=== PATIENT | male | born 1960 | race Caucasian/White ===

== ENCOUNTER 2023-06-09 13:03 | Outpatient (OUT) | payer OTHER, SELFPAY ==
--- NOTE | 2023-06-09 14:05 | CA_ITS ---
Patient: MAGGIE GRAHAM Exam Date: 06/09/2023 : 1960 Gender:M Ordering : DR GALINDO ARANA M.D. 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 DESCRIPTION: COMPLETE ECHOCARDIOGRAM Real-time transthoracic echocardiography with 2D, M-mode, spectral and color flow Doppler performed. QUALITY: Technical quality was adequate. LEFT VENTRICLE: Moderate dilatation. Mild concentric left ventricular hypertrophy. Global left ventricular systolic function is at the lower limits of normal. LV EF: Visual estimation of left ventricular ejection fraction is 50% DIASTOLIC: Not adequately assessed due to heart rhythm. ATRIAL SEPTUM: LEFT ATRIUM: Severe dilatation. RIGHT ATRIUM: Severe dilatation. RIGHT VENTRICLE: Mild dilatation. Normal right ventricular systolic function. TRICUSPID VALVE: Normal mobility and thickness. No stenosis with mild regurgitation. Moderate to severe pulmonary hypertension. RVSP 57 mmHg MITRAL VALVE: Normal mobility and thickness. No evidence of mitral valve stenosis. Mild mitral annular calcification. Moderate mitral regurgitation. The mitral regurgitation jet is eccentric. AORTIC VALVE: Normal trileaflet appearance. No visible sclerosis. Normal leaflet mobility. No evidence of aortic valve stenosis. Trivial aortic regurgitation. AORTIC ROOT: Mildly dilated. Measuring 3.9 cm. PULMONIC VALVE: Normal thickness and mobility. No stenosis. Trivial regurgitation. PERICARDIUM: No evidence of pericardial effusion. IVC: Moderate dilatation. Measuring 2.5 cm with partial collapse. PLEURA: CONCLUSION: 1. The left ventricle is mildly to moderately dilated and exhibits low normal systolic function. LVEF is estimated at 50%. 2. Mildly dilated right ventricle with normal systolic function. 3. Severe biatrial dilatation. 4. Moderate mitral regurgitation with an eccentric regurgitation jet. 5. Moderate to severe elevation of right-sided pressures. RVSP is 57 mmHg. 6. Mildly dilated ascending aorta measuring 3.9 cm. Adult Echocardiography Procedure Report Left Ventricle LVEDD (3.7 - 5.6 cm): 6.55 cm LVESD (2.2 - 4.0 cm): 4.13 cm LVIVS thickness (0.6 - 1.2 cm): 0.97 cm LVPW thickness (0.5 - 1.0 cm): 1.28 cm e': 0.14 m/s E - e': 8.02 LVOT Max Gradient: 2.48 mm[Hg] LVOT Area (cm2): 0.79 m/s Peak Velocity (LVOT): 0.79 m/s Mean Velocity (LVOT): 0.59 m/s LVOT Diameter 2.40 cm Left Ventricular Ejection Fraction: 50 % Left Atrium LA Volume Index (2D A2C): 123.82 ml/m2 Left Atrium Systolic Dimension: 6.83 cm Mitral Valve Mitral Valve E-Wave Peak Velocity: 1.09 m/s Right Ventricle RV Internal Diastolic Dimension: 4.81 cm Aorta AO Root Diam: 3.87 cm Ascending Ao Diam: 3.63 cm Aortic Valve AoV Area (Peak Brad): 2.64 cm2, 2.64 cm2 AoV Area (VTI): 2.98 cm2, 2.98 cm2 Peak Velocity(Antegrade Flow): 1.35 m/s Peak Gradient(Antegrade Flow): 7.25 mm[Hg] Mean Velocity(Antegrade Flow): 0.86 m/s Mean Gradient(Antegrade Flow): 3.27 mm[Hg] Velocity Time Integral: 26.38 cm Tricuspid Valve Peak Velocity (Regurgitant Flow): 2.78 m/s, 2.52 m/s, 3.26 m/s Pulmonic Valve Mean Gradient: 1.85 mm[Hg] Mean Velocity: 0.62 m/s Peak Velocity: 0.98 m/s, 1.10 m/s Peak Gradient: 3.83 mm[Hg], 4.81 mm[Hg] Right Atrium Right Atrium Systolic Pressure: 132.50 ml, 132.50 ml Dictated by: Galindo Arana M.D. on 06/09/2023 at 19:32 Approved by: Galindo Arana M.D. on 06/09/2023 at 19:39
== END 2023-06-09 13:04 | disposition home or self-care (01) ==
PROVIDERS: PCP Internal Medicine; Visit Provider Internal Medicine Interventional Cardiology
DX: I27.22 Pulmonary hypertension due to left heart disease (principal); I34.0 Nonrheumatic mitral (valve) insufficiency
CPT/HCPCS: 93306

== ENCOUNTER 2023-06-16 10:04 | Outpatient (OUT) | payer OTHER, SELFPAY ==
[2023-06-16 10:28] LABS: Anion Gap 10.9; BUN Creatinine Ratio 11.4; Calcium 9.2 mg/dL (8.5-10.1); Carbon Dioxide 30.1 mmol/L (21.0-32.0); Chloride 105 mmol/L (98-107); Estimated GFR (African America >60 (>=60); Estimated GFR (Non-African Ame 52 (>=60); Glucose 97 mg/dL (74-106); Sodium 142 mmol/L (136-145)
== END 2023-06-16 10:05 | disposition home or self-care (01) ==
LOC: LAB 10:05
PROVIDERS: PCP Internal Medicine; Visit Provider Nurse Practitioner
DX: I50.42 Chronic combined systolic (congestive) and diastolic (congestive) heart failure (principal)
CPT/HCPCS: 36415; 80048

== ENCOUNTER 2023-09-04 14:08 | Outpatient (OUT) | payer OTHER, SELFPAY ==
--- NOTE | 2023-09-04 14:24 | XR_ITS ---
The [address] [address] Patient Name: MAGGIE GRAHAM MRN: [id number] date: 1960 Sex: M Assigned Patient Location: LAB Current Patient Location: LAB Accession/Order Number: [id number] Exam Date: 09/04/2023 14:35 Report Date: 09/04/2023 16:43 At the request of: TIKA OLSON Procedure: XR chest 2V EXAM: Chest x-ray HISTORY: . Quality Assurance Drug Therapy Z79.899 . COMPARISON: 07/30/2022 TECHNIQUE: Frontal and lateral chest FINDINGS: Heart and vascularity are unremarkable. Lungs are free of focal infiltrates. Interstitial markings are prominent suggesting chronic interstitial changes. Findings have increased slightly since previous exam. No consolidation is noted. No effusions are noted. XR/XR chest 2V IMPRESSION: 1. No acute heart or lung disease identified. 2. Prominent interstitial markings. Findings have increased slightly since previous exam. Electronically authenticated by: JEISON LIMA Date: 09/04/2023 16:43
[2023-09-04 15:19] LABS: Free T4 1.05 ng/dL (0.76-1.46)
[2023-09-04 15:25] LABS: Alanine Aminotransferase 34 U/L (16-63); Albumin Globulin Ratio 1.1; Albumin Level 3.8 g/dL (3.4-5.0); Alkaline Phosphatase 89 U/L (46-116); Aspartate Amino Transferase 25 U/L (15-37); Bilirubin Direct 0.2 mg/dL (0.0-0.2); Bilirubin Total 0.7 mg/dL (0.2-1.0); Globulin 3.6 g/dL; Thyroid Stimulating Hormone 4.036 uIU/mL (0.358-3.740); Total Protein 7.4 g/dL (6.4-8.2)
== END 2023-09-04 14:09 | disposition home or self-care (01) ==
LOC: LAB 14:11
PROVIDERS: PCP Internal Medicine; Visit Provider Nurse Practitioner
DX: Z79.899 Other long term (current) drug therapy (principal)
CPT/HCPCS: 36415; 71046; 80076; 84439; 84443

== ENCOUNTER 2023-10-21 16:07 | Outpatient (OUT) | payer OTHER, SELFPAY ==
[2023-10-21 16:25] LABS: Basophils Percent Auto 0.6 % (0.2-2.0); Eosinophils Absolute Auto 0.1 10^3/uL (0.0-0.7); Eosinophils Percent Auto 1.8 % (0.9-7.0); Hematocrit 44.8 % (42.0-54.0); Hemoglobin 14.9 g/dL (14.0-18.0); Immature Granulocytes Abs Auto 0.03 10^3/uL (0.00-0.03); Immature Granulocytes Pct Auto 0.5 % (0.0-0.5); Lymphocytes Absolute Auto 1.9 10^3/uL (1.2-3.8); Lymphocytes Percent Auto 28.4 % (20.5-60.0); Mean Corpuscular HGB Conc 33.3 g/dL (29.9-35.2); Mean Corpuscular Volume 87.2 fL (80.0-94.0); Monocytes Absolute Auto 0.5 10^3/uL (0.3-0.8); Monocytes Percent Auto 8.2 % (1.7-12.0); Neutrophils Percent Auto 60.5 % (43.0-75.0); Platelet Count 198 10^3/uL (150-450); Red Blood Count 5.14 10^6/uL (4.70-6.10); Red Cell Distribution Width 13.3 % (11.0-15.0); White Blood Count 6.6 10^3/uL (4.0-11.0)
[2023-10-21 17:26] LABS: Prostate Specific Antigen Scrn 0.52 ng/mL (<=4.00)
== END 2023-10-21 16:08 | disposition home or self-care (01) ==
PROVIDERS: PCP Internal Medicine; Visit Provider Internal Medicine
DX: Z00.00 Encounter for general adult medical examination without abnormal findings (principal)
CPT/HCPCS: 36415; 85025; G0103

== ENCOUNTER 2024-10-20 09:06 | Outpatient (OUT) | payer OTHER, SELFPAY ==
--- NOTE | 2024-10-20 09:04 | CA_ITS ---
Patient Name: MAGGIE GRAHAM MR#: [id number] : 1960 Exam Date: 10/20/2024 Ordering Doctor: NAYELI COON ECHOCARDIOGRAM REPORT PROCEDURE: CA ECHO DOPPLER COMPLETE INDICATIONS: Chronic heart failure COMPARISON: None. DESCRIPTION: COMPLETE ECHOCARDIOGRAM Real-time transthoracic echocardiography with 2D, M-mode, spectral and color flow Doppler performed. QUALITY: Technical quality was good. LEFT VENTRICLE: Normal chamber size. Thickened posterior wall. Mild to moderate concentric hypertrophy. Systolic function is at the lower limits of normal. LV EF: Lower limits of normal left ventricular ejection fraction, (50-55%). DIASTOLIC: Not adequately assessed due to heart rhythm. ATRIAL SEPTUM: LEFT ATRIUM: Severe dilatation. RIGHT ATRIUM: Severe dilatation. RIGHT VENTRICLE: Mild dilatation. Normal right ventricular systolic function. TRICUSPID VALVE: Normal mobility and thickness. No stenosis with mild regurgitation. No evidence of pulmonary hypertension. RVSP 29 mmHg MITRAL VALVE: Normal mobility and thickness. No evidence of mitral valve stenosis. There is no mitral annular calcification. Mild to moderate mitral regurgitation. AORTIC VALVE: Normal trileaflet appearance. No visible sclerosis. Normal leaflet mobility. No evidence of aortic valve stenosis. Mild aortic regurgitation. AORTIC ROOT: Normal diameter and appearance, measuring 3.7 cm. Mildly dilated ascending aorta measuring 3.7 cm. PULMONIC VALVE: Normal thickness and mobility. No stenosis. No regurgitation. PERICARDIUM: No evidence of pericardial effusion. IVC: Collapses with inspirations. Normal size. PLEURA: CONCLUSION: 1. The left ventricle exhibits mild to moderate concentric hypertrophy. Systolic function is at the lower limits of normal. Estimated LVEF is 50 to 55%. 2. Mildly dilated right ventricle with normal systolic function. 3. Severe biatrial dilatation. 4. Mild to moderate mitral regurgitation. 5. Mild aortic and tricuspid regurgitation. 6. Normal right-sided pressures. 7. Mildly dilated ascending aorta measuring 3.7 cm. Adult Echocardiography Procedure Report Left Ventricle LVEDD (3.7 - 5.6 cm): 6.16 cm LVESD (2.2 - 4.0 cm): 4.69 cm LVIVS thickness (0.6 - 1.2 cm): 1.08 cm LVPW thickness (0.5 - 1.0 cm): 1.45 cm e': 0.13 m/s LVOT Max Gradient: 1.98 mm[Hg] LVOT Area (cm2): 0.70 m/s Peak Velocity (LVOT): 0.70 m/s Mean Velocity (LVOT): 0.45 m/s LVOT Diameter 2.15 cm Left Ventricular Ejection Fraction: 50-55 % Left Atrium LA Volume Index (2D A2C): 113.44 ml/m2 Left Atrium Systolic Dimension: 6.96 cm Mitral Valve Right Ventricle RV Internal Diastolic Dimension: 4.18 cm Aorta AO Root Diam: 3.71 cm Ascending Ao Diam: 3.70 cm Aortic Valve AoV Area (Peak Brad): 1.52 cm2, 1.52 cm2 AoV Area (VTI): 1.84 cm2, 1.84 cm2 Peak Velocity(Antegrade Flow): 1.67 m/s Peak Gradient(Antegrade Flow): 11.22 mm[Hg] Mean Velocity(Antegrade Flow): 1.14 m/s Mean Gradient(Antegrade Flow): 5.92 mm[Hg] Velocity Time Integral: 32.96 cm Tricuspid Valve Peak Velocity (Regurgitant Flow): 2.42 m/s, 2.13 m/s, 2.57 m/s Pulmonic Valve Mean Gradient: 2.36 mm[Hg], 3.36 mm[Hg] Mean Velocity: 0.76 m/s, 0.89 m/s Peak Velocity: 1.01 m/s Peak Gradient: 3.31 mm[Hg], 5.01 mm[Hg] Right Atrium Right Atrium Systolic Pressure: 144.47 ml, 144.47 ml Dictated by: Tim Arana M.D. on 10/21/2024 at 20:34 Approved by: Tim Arana M.D. on 10/21/2024 at 20:38
== END 2024-10-20 09:07 | disposition home or self-care (01) ==
LOC: CARD 09:06
PROVIDERS: PCP Internal Medicine; Visit Provider Nurse Practitioner
DX: I50.42 Chronic combined systolic (congestive) and diastolic (congestive) heart failure (principal)
CPT/HCPCS: 93306

== ENCOUNTER 2024-11-05 09:01 | Outpatient (OUT) | payer BC, OTHER, SELFPAY ==
[2024-11-05 09:59] LABS: Basophils Percent Auto 0.5 % (0.2-2.0); Eosinophils Absolute Auto 0.1 10^3/uL (0.0-0.7); Eosinophils Percent Auto 1.6 % (0.9-7.0); Hematocrit 47.4 % (42.0-54.0); Hemoglobin 15.7 g/dL (14.0-18.0); Immature Granulocytes Abs Auto 0.01 10^3/uL (0.00-0.03); Immature Granulocytes Pct Auto 0.2 % (0.0-0.5); Lymphocytes Absolute Auto 1.6 10^3/uL (1.2-3.8); Lymphocytes Percent Auto 24.5 % (20.5-60.0); Mean Corpuscular HGB Conc 33.1 g/dL (29.9-35.2); Mean Corpuscular Hemoglobin 27.7 pg (25.9-34.0); Mean Corpuscular Volume 83.6 fL (80.0-94.0); Mean Platelet Volume 10.6 fL (9.5-13.5); Monocytes Absolute Auto 0.5 10^3/uL (0.3-0.8); Monocytes Percent Auto 8.2 % (1.7-12.0); Neutrophils Absolute Auto 4.2 10^3/uL (1.4-6.5); Platelet Count 193 10^3/uL (150-450); Red Blood Count 5.67 10^6/uL (4.70-6.10); Red Cell Distribution Width 13.6 % (11.0-15.0); White Blood Count 6.4 10^3/uL (4.0-11.0)
[2024-11-05 10:20] LABS: Alanine Aminotransferase 26 U/L (16-63); Albumin Globulin Ratio 1.1; Albumin Level 3.5 g/dL (3.4-5.0); Alkaline Phosphatase 84 U/L (46-116); Anion Gap 8.9; Aspartate Amino Transferase 19 U/L (15-37); BUN Creatinine Ratio 15.3; Calcium 8.9 mg/dL (8.5-10.1); Chloride 108 mmol/L (98-107); Chol HDL Ratio 3.7; Cholesterol 163 mg/dL (<=200); Estimated GFR (African America >60 (>=60 mL/min/1.73m^2); Estimated GFR (Non-African Ame >60 (>=60 mL/min/1.73m^2); Globulin 3.3 g/dL; Glucose 99 mg/dL (74-106); HDL Cholesterol 44 mg/dL (40-60); LDL Cholesterol Calculated 106.8 mg/dL; Potassium 3.9 mmol/L (3.5-5.1); Sodium 142 mmol/L (136-145); Total Protein 6.8 g/dL (6.4-8.2); Triglycerides 61 mg/dL (<=150); VLDL CHOLESTEROL 12.2 mg/dL
[2024-11-05 10:58] LABS: Prostate Specific Antigen Scrn 0.24 ng/mL (<=4.00)
== END 2024-11-05 09:02 | disposition home or self-care (01) ==
PROVIDERS: PCP Internal Medicine; Visit Provider Internal Medicine
DX: Z00.00 Encounter for general adult medical examination without abnormal findings (principal)
CPT/HCPCS: 36415; 80053; 80061; 85025; G0103

== ENCOUNTER 2024-12-06 10:34 | Outpatient (OUT) | payer BC, SELFPAY ==
--- OUTSIDE RECORDS SUMMARY | 2024-12-06 10:39 | XMS_ITS | CCD ---
Author Organization [facility] Care Team Providers Care Clinical Admissions Manager Name Role Phone FAM VAZQUEZ Primary Care Unavailable GEORGE, FAM Referring Unavailable DUARTELUIS MIGUEL Admitting Unavailable DUARTELUIS MIGUEL Attending Unavailable GEORGE, FAM Primary Care Unavailable GEORGE, FAM Referring Unavailable MOUKARBEL, GALINDO Dominguez Admitting Unavailable MOUKARBDAKOTA, GALINDO Dominguez Attending Unavailable Fam Vazquez Unavailable GEORGE, DR ETIENNE Admitting Unavailable BALL, DR ETIENNE Attending Unavailable BALL, DR ETIENNE Primary Care Unavailable BALL, DR ETIENNE Consulting Unavailable MOUKARBEL, DR MEDLEY Admitting Unavailable MOUKARBEL, DR MEDLEY Attending Unavailable BALL, DR ETIENNE Primary Care Unavailable MOUKARBEL, DR MEDLEY Consulting Unavailable MOUKARBEL, DR MEDLEY Admitting Unavailable MOUKARBEL, DR MEDLEY Attending Unavailable BALL, DR ETIENNE Primary Care Unavailable MOUKARBEL, DR MEDLEY Consulting Unavailable MOUKARBEL, DR MEDLEY Admitting Unavailable MOUKARBEL, DR MEDLEY Attending Unavailable BALL, DR ETIENNE Primary Care Unavailable KEIRY, BILL Admitting Unavailable KERIY, BILL Attending Unavailable GEORGE, DR ETIENNE Primary Care Unavailable BILL RICCI Consulting Unavailable NEFCYEVENS Consulting Unavailable MOUKARBEL, DR MEDLEY Admitting Unavailable MOUKARBEL, DR MEDLEY Attending Unavailable BALL, DR ETIENNE Primary Care Unavailable MOUKARBEL, DR MEDLEY Consulting Unavailable MOUKARBEL, GALINDO Attending Unavailable SHAGGY, NAYELI Attending Unavailable Medications Current Medications Medication Drug Class(es) Dates Sig (Normalized) Sig (Original) amiodarone hydrochloride 200 mg oral tablet (5 sources) Antiarrhythmic take 1 tablet by mouth every twenty-four hours Amiodarone HCl 200 MG 1 tablet Orally Once a day Active amLODIPine 10 mg / benazepril hydrochloride 40 mg oral capsule (7 sources) Dihydropyridine Calcium Channel Shane, Angiotensin Converting Enzyme Inhibitor Start: 05-17-2024 take 1 capsule by mouth once daily Amlodipine-Benaz epril Active 1 CAP PO Daily May 17, 2024 12:00am amLODIPine Besy- Benazepril HCl 10-40 MG as directed Orally Active apixaban 5 mg oral tablet (12 sources) Factor Xa Inhibitor Start: 05-17-2024 take 5 mg by mouth twice daily Apixaban Active 5 MG PO Twice daily May 17, 2024 12:00am Start: 02-17-2023 take 1 tablet by tiffanie th every twelve hours Eliquis 5 MG 1 tablet Orally Twice a day Feb, Active cefuroxime 500 mg oral tablet (1 source) Cephalosporin Antibacterial Start: 07-09-2024 take 500 mg by mouth twice daily Cefuroxime Axetil Active 500 MG PO Twice daily 16 05July 09, 2024 12:00am dapagliflozin 10 mg oral tablet (5 sources) Sodium-Glucose Cotransporter 2 Inhibitor Start: 05-17-2024 take 1 tablet by mouth once daily Dapagliflozin Propanediol (Farxiga) 10 mg tablet Active 10 MG PO Daily May 17, 2024 12:00am take 1 tablet by tiffanie every twenty-four hours Farxiga 10 MG 1 tablet Orally Once a day Active doxycycline hyclate 100 mg oral capsule (3 sources) Tetracycline-class Drug Start: 05-27-2024 take 100 mg by mouth twice daily Doxycycline Hyclate Active 100 MG PO Twice daily 14 May 27, 2024 12:00am Start: 12-02-2023 take 1 capsule by mo [facility] every twelve hours Doxycycline Hyclate 100 MG 1 capsule Orally Twice a day for 7 days Nov, Active furosemide 40 mg oral tablet (7 sources) Loop Diuretic Start: 05-17-2024 take 40 mg by mouth three times daily Furosemide Active 40 MG PO Three times daily May 17, 2024 12:00am take 1 tablet by mouth every eig ht hours Furosemide 40 MG 1 tablet Orally tid Active take 1 tablet by tiffanie th every twenty-four hours metoprolol tartrate 50 mg oral tablet (9 sources) beta-Adrenergic Shane Start: 05-17-2024 take 50 mg by mouth twice daily Metoprolol Tartrate Active 50 MG PO Twice daily May 17, 2024 12:00am Start: 02-17-2023 take 1 tablet by tiffanie every twelve hours Metoprolol Tartrate 25 MG 1 tablet with food Orally Twice a day Feb, Active microencapsulated potassium chloride 20 meq extended release oral tablet (7 sources) Start: 05-17-2024 Potassium Chlo ride (Klor-Con M20) 20 mEq tablet,ER particles/crystals Active 20 MEQ PO Daily May 17, 2024 12:00am take 1 tablet by mouth every eig ht hours Klor-Con M20 20 MEQ 1 tablet with food Orally tid Active take 1 tablet by tiffanie th every twenty-four hours Klor-Con M20 20 MEQ 1 tablet with food Orally Once a day Active spironolactone 25 mg oral tablet (7 sources) Aldosterone Antagonist Start: 05-17-2024 take 1 tablet by mouth once daily Spironolactone (Aldactone) 25 mg tablet Active 25 MG PO Daily May 17, 2024 12:00am tadalafil 20 mg oral tablet (7 sources) Phosphodiesterase 5 Inhibitor Start: 05-17-2024 Tadalafil (Pulm. Hypertension) Active 20 MG PO Every 48 hours May 17, 2024 12:00am Tadalafil 20 MG 1 tablet as needed Orally PRN ED for 30 days Active Completed/Discontinued Medications Medication Drug Class(es) Dates Sig (Normalized) Sig (Original) azithromycin 250 mg oral tablet (5 sources) Macrolide Antimicrobial Start: 02-17-2023 Azithromycin 250 MG as directed Orally daily for 5 days Feb, Not-Taking/PRN Problems Active Problems Problem Classification Problem Date Documented Da te Episodic/Chronic Acute bronchitis (5 sources) Acute bronchitis; Translations: [Acute bronchitis due to other specified organisms] 05-27-2024 Episodic Aortic; peripheral; and visceral artery aneurysms (2 sources) Aortic ectasia, unspecified site; Translations: [Aortic ectasia, unspecified site] Onset: 10-03-2022 Chronic Cardiac dysrhythmias (19 sources) Paroxysmal atrial fibrillation; Translations: [Paroxysmal atrial fibrillation] Onset: 01-13-2014 Chronic Chronic kidney disease (6 sources) Chronic kidney disease stage 3; Translations: [Chronic kidney disease, stage III (moderate)] Onset: 10-05-2018 Chronic Congestive heart failure; nonhypertensive (4 sources) Chronic diastolic (congestive) heart failure; Translations: [Chronic combined systolic (congestive) and diastolic (congestive) heart failure] Onset: 06-06-2023 Chronic Essential hypertension (18 sources) Essential hypertension; Translations: [Essential (primary) hypertension] Onset: 06-15-2015 Chronic Heart valve disorders (3 sources) 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 valves; Translations: [Nonrheumatic mitral (valve) insufficiency] Onset: 10-19-2022 Chronic Hyperplasia of prostate (3 sources) Benign prostatic hypertrophy without outflow obstruction; Translations: [Hypertrophy (benign) of prostate without urinary obstruction and other lower urinary tract symptoms [LUTS]] Onset: 01-02-2018 Chronic Hypertension with complications and secondary hypertension (13 sources) Chronic kidney disease due to hypertension; Translations: [Hypertensive chronic kidney disease with stage 1 through stage 4 chronic kidney disease, or unspecified chronic kidney disease] Onset: 10-05-2018 Chronic Other aftercare (4 sources) Long-term current use of anticoagulant; Translations: [Long-term (current) use of anticoagulants] Onset: 02-16-2018 Episodic Other aftercare (1 source) retirement (current) use of anticoagulants Episodic Other and ill-defined heart disease (2 sources) Heart disease, unspecified; Translations: [Heart disease, unspecified] Onset: 10-03-2022 Chronic Other and unspecified benign neoplasm (2 sources) Benign neoplasm of colon; Translations: [Polyp of colon] Episodic Other and unspecified benign neoplasm (6 sources) Polyp of colon; Translations: [Polyp of colon] Episodic Other connective tissue disease (8 sources) Plantar fascial fibromatosis; Translations: [Plantar fascial fibromatosis] Episodic Other connective tissue disease (1 source) Olecranon bursitis, left elbow Episodic Other diseases of veins and lymphatics (3 sources) Chronic peripheral venous hypertension; Translations: [Chronic venous hypertension without complications] Onset: 06-15-2015 Chronic Other male genital disorders (5 sources) Impotence of organic origin; Translations: [Erectile dysfunction due to arterial insufficiency] Chronic Other male genital disorders (1 source) Erectile dysfunction due to arterial insufficiency Chronic Other nutritional; endocrine; and metabolic disorders (3 sources) Obesity; Translations: [Obesity, unspecified] Onset: 06-15-2015 Chronic Other nutritional; endocrine; and metabolic disorders (6 sources) Morbid obesity; Translations: [Morbid obesity] Onset: 05-24-2016 Chronic Other nutritional; endocrine; and metabolic disorders (6 sources) Body mass index 40+ - severely obese; Translations: [Body Mass Index 40.0-44.9, adult] Onset: 01-02-2018 Chronic Other nutritional; endocrine; and metabolic disorders (1 source) Morbid (severe) obesity due to excess calories Chronic Other nutritional; endocrine; and metabolic disorders (1 source) Body mass index (BMI) 40.0-44.9, adult Chronic Other skin disorders (1 source) Other hypertrophic disorders of the skin Episodic Other upper respiratory infections (9 sources) Acute maxillary sinusitis, unspecified; Translations: [Acute maxillary sinusitis] Onset: 10-05-2018 Episodic Otitis media and related conditions (2 sources) Dysfunction of eustachian tube; Translations: [Unspecified Eustachian tube disorder, unspecified ear] 07-09-2024 Episodic Meg-; endo-; and myocarditis; cardiomyopathy (except that caused by tuberculosis or sexually transmitted disease) (4 sources) Cardiomyopathy; Translations: [Cardiomyopathy, unspecified] Onset: 06-06-2023 07-09-2024 Chronic Pulmonary heart disease (2 sources) Pulmonary hypertension due to left heart disease; Translations: [Pulmonary hypertension due to left heart disease] Onset: 12-02-2024 Chronic Residual codes; unclassified (18 sources) Obstructive sleep apnea syndrome; Translations: [Obstructive sleep apnea (adult) (pediatric)] Onset: 05-24-2016 05-27-2024 Chronic Residual codes; unclassified (3 sources) Obstructive sleep apnea (adult) (pediatric); Translations: [Obstructive sleep apnea (adult) (pediatric)] Onset: 10-03-2022 Chronic Superficial injury; contusion (4 sources) Nonvenomous insect bite of hip with infection; Translations: [Hip, thigh, leg, and ankle, insect bite, nonvenomous, infected] Onset: 06-27-2014 Episodic Unclassified (3 sources) CONTACT W/AND (SUSP) EXPOS COVID-19; Translations: [CONTACT W/AND (SUSP) EXPOS COVID-19] Onset: 03-28-2022 Past or Other Problems Problem Classification Problem Date Documented Da te Episodic/Chronic Bacterial infection; unspecified site (3 sources) Bacterial infectious disease; Translations: [Bacterial infection, unspecified, in conditions classified elsewhere and of unspecified site] Onset: 10-05-2018 Episodic Cardiac dysrhythmias (3 sources) Tachycardia; Translations: [Unspecified tachycardia] Onset: 01-12-2014 Episodic Chronic kidney disease (1 source) Chronic kidney disease Gastrointestinal hemorrhage (3 sources) Hematochezia; Translations: [Blood in stool] Onset: 07-26-2016 Episodic Malaise and fatigue (3 sources) Malaise and fatigue; Translations: [Other malaise and fatigue] Onset: 06-15-2015 Episodic Other diseases of veins and lymphatics (3 sources) Peripheral venous insufficiency; Translations: [Unspecified venous (peripheral) insufficiency] Onset: 06-15-2015 Episodic Other lower respiratory disease (4 sources) Shortness of breath; Translations: [SHORTNESS OF BREATH] Onset: 10-14-2022 Episodic Other lower respiratory disease (3 sources) Chronic cough; Translations: [Chronic cough] Resolved: 10-15-2022 Episodic Other lower respiratory disease (3 sources) Dyspnea; Translations: [Other dyspnea and respiratory abnormalities] Onset: 01-12-2014 Episodic Other lower respiratory disease (3 sources) Orthopnea; Translations: [Orthopnea] Onset: 01-12-2014 Episodic Other screening for suspected conditions (not mental disorders or infectious disease) (5 sources) Encounter for screening for malignant neoplasm of prostate; Translations: [Coag./bleeding tests abnormal] Onset: 06-27-2014 Episodic Pneumonia (except that caused by tuberculosis or sexually transmitted disease) (3 sources) Pneumonia; Translations: [Pneumonia due to other specified organism] Onset: 02-16-2018 Episodic Residual codes; unclassified (3 sources) Edema; Translations: [Edema] Onset: 06-15-2015 Episodic Skin and subcutaneous tissue infections (3 sources) Cellulitis and abscess of lower leg; Translations: [Cellulitis and abscess of leg, except foot] Onset: 06-27-2014 Episodic Unclassified (1 source) CONTACT W/AND (SUSP) EXPOS COVID-19; Translations: [CONTACT W/AND (SUSP) EXPOS COVID-19] Onset: 03-26-2022 Unclassified (3 sources) Long-term current use of drug therapy; Translations: [Long-term (current) use of other medications] Onset: 01-02-2018 Unclassified (3 sources) Iron deficiency screening; Translations: [Screening for iron deficiency anemia] Onset: 01-02-2018 Results Test Name Value Interpretation Reference Range Facility Office Visiton 12-02-2024 Follow-up visit [id number] SantosRick rosalesjulius blackwood W 1960 M Date Provider Department Center 12/02/2024 GALINDO PENA Family History Problem Relation Age of Onset Stroke Mother Diabetes Father Family Status - Relation Status Age at Mother Father Level of Service:81707 [place] OFFICE/OUTPATIENT ESTABLISHED HIGH MDM 40 MIN Normal [facility] 36on 11-04-2024 36 Regarding echo performed on 10/20/2024: Nayeli Hernandez, REINA Griffiths, YOLIS Let pt know everything on echo remains stable, no acute concerns. Mitral valve with mod regurg and Aorta without widening- remains stable. Patient made aware. He is scheduled to see Dr. Villa on 12/02/2024. Normal [facility] Orders Onlyon 11-02-2024 Orders Only [id number] Monica Graham n W 1960 M Date Provider Department Center 11/02/2024 ADALID STRANGE Family History Problem Relation Age of Onset Stroke Mother Diabetes Father Family Status - Relation Status Age at Mother Father Normal [facility] Orders Onlyon 05-17-2024 Orders Only [id number] SantosMonica W 1960 Date Provider Department Center 05/17/2024 ADALID STRANGE Family History Problem Relation Age of Onset Stroke Mother Diabetes Father Family Status - Relation Status Age at Mother Father Normal [facility] Office Visiton 05-14-2024 Follow-up visit [id number] Monica Graham W 1960 M Date Provider Department Center 05/14/2024 NAYELI ROMO [facility] Family History Problem Relation Age of Onset Stroke Mother Diabetes Father Family Status - Relation Status Age at Mother Father Level of Service:54884 [place] OFFICE/OUTPATIENT ESTABLISHED LOW MDM 20 MIN Normal [facility] PROF CHEM 8 (BAS METB)on Anion gap [Moles/Vol] 11.2 mmol/L Normal [facility] Comment on above: Performed By: #### B MP #### [facility] [address] [address] [address] Roc Carroll Calcium [Mass/Vol] 8.4 mg/dL Critically low 8.5-10.1 Th [facility] Comment on above: Performed By: #### B MP #### [facility] [address] [address] [address] Roc Carroll Chloride [Moles/Vol] 106 mmol/L Normal 98-107 [facility] Comment on above: Performed By: #### B MP #### [facility] [address] [address] [address] Roc Carroll CO2 [Moles/Vol] 28.3 mmol/L Normal 21.0-32.[address] [facility] Comment on above: Performed By: #### B MP #### [facility] [address] [address] [address] Roc Carroll Creatinine [Mass/Vol] 1.36 mg/dL Critically high 0.70-1.30 [facility] Comment on above: Performed By: #### B MP #### [facility] [address] [address] [address] Roc Carroll EGFR-AF SAMOAN >60 Normal >=[address] [facility] Comment on above: Performed By: #### B MP #### [facility] [address] [address] [address] Roc Carroll EGFR-NON AF SAMOAN 53 mL/min/1.73m2 Critically low >=60 [facility] Comment on above: Performed By: #### B MP #### [facility] [address] [address] [address] Roc Carroll Glucose [Mass/Vol] 99 mg/dL Normal 74-106 [facility] Comment on above: Performed By: #### B MP #### [facility] [address] [address] [address] Roc Carroll Potassium [Moles/Vol] 3.5 mmol/L Normal 3.5-5.1 [facility] Comment on above: Performed By: #### B MP #### [facility] [address] [address] [address] Roc Carroll Sodium [Moles/Vol] 142 mmol/L Normal 136-145 [facility] Comment on above: Performed By: #### B MP #### [facility] [address] [place] [address] Dr. Roc Carroll Urea nitrogen [Mass/Vol] 13.0 mg/dL Normal 7.0-18.0 [facility] Comment on above: Performed By: #### B MP #### [facility] [address] [address] [address] Roc Carroll Urea nitrogen/Creatinine [Mass ratio] 9.6 mg/mg Normal [facility] Comment on above: Performed By: #### B MP #### [facility] [address] [place] [address] Dr. Roc Carroll PROF CHEM 8 (BAS METB)on Anion gap [Moles/Vol] 10.3 mmol/L Normal [facility] Comment on above: Performed By: #### B MP #### [facility] [address] [place] [address] Dr. Roc Carroll Calcium [Mass/Vol] 8.8 mg/dL Normal 8.5-10.1 [facility] Comment on above: Performed By: #### B MP #### [facility] [address] [place] [address] Dr. Roc Carroll Chloride [Moles/Vol] 103 mmol/L Normal 98-107 [facility] Comment on above: Performed By: #### B MP #### [facility] [address] [place] [address] Dr. Roc Carroll CO2 [Moles/Vol] 30.4 mmol/L Normal 21.0-32.0 [facility] Comment on above: Performed By: #### B MP #### [facility] [address] [place] [address] Dr. Roc Carroll Creatinine [Mass/Vol] 1.31 mg/dL Critically high 0.70-1.30 [facility] Comment on above: Performed By: #### B MP #### [facility] [address] [place] [address] Dr. Roc Carroll EGFR-AF SAMOAN >60 Normal >=60 [facility] Comment on above: Performed By: #### B MP #### [facility] [address] [address] [address] Rco Carroll EGFR-NON AF SAMOAN 56 mL/min/1.73m2 Critically low >=60 [facility] Comment on above: Performed By: #### B MP #### [facility] [address] [address] [address] Roc Carroll Glucose [Mass/Vol] 91 mg/dL Normal 74-106 [facility] Comment on above: Performed By: #### B MP #### [facility] [address] [address] [address] Roc Carroll Potassium [Moles/Vol] 3.7 mmol/L Normal 3.5-5.1 [facility] Comment on above: Performed By: #### B MP #### [facility] [address] [address] [address] Roc Carroll Sodium [Moles/Vol] 140 mmol/L Normal 136-145 [facility] Comment on above: Performed By: #### B MP #### [facility] [address] [address] [address] Roc Carroll Urea nitrogen [Mass/Vol] 17.0 mg/dL Normal 7.0-18.0 [facility] Comment on above: Performed By: #### B MP #### [facility] [address] [address] [address] Roc Carroll Urea nitrogen/Creatinine [Mass ratio] 13.0 mg/mg Normal [facility] Comment on above: Performed By: #### B MP #### [facility] [address] [address] [address] Roc Carroll ECHOCARDIO M/2D COMPLETEon 1 12-15-2021 ECHOCARDIO M/2D COMPLETE Patient: KISHOR GRAHAM Exam Date: 10/14/2022 : 1960 Gender:M Ordering : DR GALINDO VILLA M.D. Admission #: [id number] Family : Order #: [id number] CLICK HERE TO VIEW EXAM ECHOCARDIOGRAM REPORT PROCEDURE: CARDIO PULMONARY ECHOCARDIO M/2D COMP INDICATIONS: Shortness of breath COMPARISON: None. DESCRIPTION: COMPLETE ECHOCARDIOGRAM Real-time transthoracic echocardiography with 2D, M-mode, spectral and color flow Doppler performed. QUALITY: Technical quality was good. LEFT VENTRICLE: Normal chamber size. Moderate concentric left ventricular hypertrophy. Calculated left ventricular ejection fraction is 52%. LV EF: Lower limits of normal left ventricular ejection fraction, (50-55%). DIASTOLIC: Not adequately assessed due to heart rhythm. ATRIAL SEPTUM: LEFT ATRIUM: Severe dilatation. RIGHT ATRIUM: Severe dilatation. RIGHT VENTRICLE: Normal chamber size. Normal right ventricular systolic function. TRICUSPID VALVE: Normal mobility and thickness. No stenosis with mild to moderate regurgitation. Severe pulmonary hypertension. RVSP 76 mmHg MITRAL VALVE: Normal mobility and thickness. No mitral valve prolapse. No evidence of mitral valve stenosis. There is no mitral annular calcification. Moderate mitral regurgitation. The degree of mitral regurgitation jet is eccentric and directed anteriorly. AORTIC VALVE: Normal trileaflet appearance. No visible sclerosis. Normal leaflet mobility. No evidence of aortic valve stenosis. DVI 0.57. Mild aortic regurgitation. AORTIC ROOT: Normal diameter and appearance. PULMONIC VALVE: Normal thickness and mobility. No stenosis. Trivial regurgitation. PERICARDIUM: No evidence of pericardial effusion. IVC: Mild dilatation. Collapses with inspiration. PLEURA: CONCLUSION: 1. Moderate concentric left ventricular hypertrophy. Left ventricular systolic function is at the lower limits of normal. LVEF is 50 to 55%. 2. Normal right ventricular size and systolic function. 3. Moderate mitral regurgitation with an eccentric anteriorly directed jet. 4. Mild aortic regurgitation. 5. Severely elevated right-sided pressures. Adult Echocardiography Procedure Report Left Ventricle LVEDD (3.7 - 5.6 cm): 6.18 cm LVESD (2.2 - 4.0 cm): 4.53 cm LVIVS thickness (0.6 - 1.2 cm): 1.26 cm LVPW thickness (0.5 - 1.0 cm): 1.38 cm e': 0.14 m/s LVOT Max Gradient: 2.21 mm[Hg] Peak Velocity (LVOT): 0.74 m/s LVOT Diameter 2.34 cm Left Ventricular Ejection Fraction: 50-55% Left Atrium LA Volume Index (2D A2C): 277.31 ml, 277.31 ml Left Atrium Systolic Dimension: 6.55 cm Mitral Valve Right Ventricle RV Internal Diastolic Dimension: 4.12 cm Aorta AO Root Diam: 3.75 cm Ascending Ao Diam: 3.12 cm Aortic Valve AoV Area (Peak Brad): 2.42 cm2, 2.42 cm2 Deceleration [place]: 1.90 m/s2 Pressure Half-Time: 778.15 ms Peak Velocity(Antegrade Flow): 1.33 m/s Peak Gradient(Antegrade Flow): 7.05 mm[Hg] Tricuspid Valve Peak Velocity (Regurgitant Flow): 2.26 m/s, 2.90 m/s, 4.11 m/s Peak Velocity: 0.45 m/s Pulmonic Valve Peak Velocity: 0.93 m/s, 0.85 m/s Peak Gradient: 3.43 mm[Hg], 2.90 mm[Hg] Right Atrium Right Atrium Systolic Pressure: 132.59 ml, 132.59 ml Dictated by: Galindo Villa M.D. on 10/15/2022 at 17:57 Approved by: Galindo Villa M.D. on 10/15/2022 at 18:16 Normal [facility] HEMOGLOBINon 10-14-2022 Hemoglobin (Bld) [Mass/Vol] 14.7 g/dL Normal 14.0-18.0 [facility] Comment on above: Performed By: #### H GB #### [facility] [address] [place] [address] Dr. Roc Carroll LIPID PROFILEon 07-30-2022 CHOL-HDL RATIO NORM SEE BELOW Normal [facility] Comment on above: Result Comment: 3.3 - 4.4 LOW RISK 4.4 - 7.1 AVERAGE RISK 7.1 - 11.0 MODERATE RISK >11.0 HIGH RISK Performed By: #### L IPID, TSH, LIVER #### [facility] [address] [address] [address] Roc Carroll Cholesterol [Mass/Vol] 174 mg/dL Normal <=200 [facility] Comment on above: Performed By: #### L IPID, TSH, LIVER #### [facility] [address] [address] [address] Roc Carroll Cholesterol in HDL [Mass/Vol] 43 mg/dL Normal 40-60 [facility] Comment on above: Performed By: #### L IPID, TSH, LIVER #### [facility] [address] [address] [address] Roc Carroll Cholesterol in LDL [Mass/Vol] 117.2 mg/dL Normal [facility] Comment on above: Performed By: #### L IPID, TSH, LIVER #### [facility] [address] [address] [address] Roc Carroll Cholesterol.total/C holesterol in HDL [Mass ratio] 4.0 {ratio} Normal [facility] Comment on above: Performed By: #### L IPID, TSH, LIVER #### [facility] [address] [place] [address] Dr. Roc Carroll HDL NORMAL > or = 60 mg/dl - LO W CARDIOVASCULAR RISK <40 mg/dl - HIGH CARDIOVASCULAR RISK Normal [facility] Comment on above: Performed By: #### L IPID, TSH, LIVER #### [facility] [address] [place] [address] Dr. Roc Carroll LDL CALC NORMAL SEE BELOW Normal [facility] Comment on above: Result Comment: <100 mg/dl OPTIMAL 100 - 129 mg/dl NEAR OR ABOVE OPTIMAL 130 - 159 mg/dl BORDERLINE HIGH 160 - 189 mg/dl HIGH >190 mg/dl VERY HIGH Performed By: #### L IPID, TSH, LIVER #### [facility] [address] [place] [address] Dr. Roc Carroll Triglyceride [Mass/Vol] 69 mg/dL Normal <=150 [facility] Comment on above: Performed By: #### L IPID, TSH, LIVER #### [facility] [address] [place] [address] Dr. Roc Carroll VLDL CALC 13.8 mg/dL Normal [facility] Comment on above: Performed By: #### L IPID, TSH, LIVER #### [facility] [address] [address] [address] Roc Carroll LIVER PROFILEon 07-30-2022 Albumin [Mass/Vol] 3.8 g/dL Normal 3.4-5.0 [facility] Comment on above: Performed By: #### L IPID, TSH, LIVER #### [facility] [address] [place] [address] Dr. Roc Carroll Albumin/Globulin [Mass ratio] 1.2 {ratio} Normal [facility] Comment on above: Performed By: #### L IPID, TSH, LIVER #### [facility] [address] [place] [address] Dr. Roc Carroll ALP [Catalytic activity/Vol] 63 U/L Normal 46-116 [facility] Comment on above: Performed By: #### L IPID, TSH, LIVER #### [facility] [address] [place] [address] Dr. Roc Carroll ALT [Catalytic activity/Vol] 25 U/L Normal 16-63 [facility] Comment on above: Performed By: #### L IPID, TSH, LIVER #### [facility] [address] [place] [address] Dr. Roc Carroll AST [Catalytic activity/Vol] 16 U/L Normal 15-37 [facility] Comment on above: Performed By: #### L IPID, TSH, LIVER #### [facility] [address] [place] [address] Dr. Roc Carroll BILI, CONJUGATED 0.2 mg/dL Normal 0.0-0.[address] [facility] Comment on above: Performed By: #### L IPID, TSH, LIVER #### [facility] [address] [place] [address] Dr. Roc Carroll Bilirubin [Mass/Vol] 0.9 mg/dL Normal 0.2-1.0 [facility] Comment on above: Performed By: #### L IPID, TSH, LIVER #### [facility] [address] [place] [address] Dr. Roc Carroll Globulin (S) [Mass/Vol] 3.2 g/dL Normal [facility] Comment on above: Performed By: #### L IPID, TSH, LIVER #### [facility] [address] [place], [place] [id number] Dr. Roc Carroll Protein [Mass/Vol] 7.0 g/dL Normal 6.4-8.2 [facility] Comment on above: Performed By: #### L IPID, TSH, LIVER #### [facility] [address] [address] [address] Roc Carroll TSHon 07-30-2022 TSH 3.681 uIU/mL Normal 0.358-3.740 [facility] Comment on above: Performed By: #### L IPID, TSH, LIVER #### [facility] [address] [address] [address] Roc Carroll XR CHEST 2 Von 07-30-2022 XR CHEST 2 V EXAM: XR CHEST 2 V HISTORY: Paroxysmal atrial fibrillation COMPARISON: 10/19/2021 TECHNIQUE: Upright PA and lateral chest x-ray FINDINGS: The heart is enlarged, with mild prominence of interstitial markings in the mid and lower lungs, and mild prominence of the central pulmonary vasculature. No discrete infiltrate, effusion or pneumothorax is identified. The osseous structures are grossly intact. IMPRESSION: Cardiac enlargement and mild prominence of the interstitial markings which appear chronic in nature. There is no evidence of an acute infiltrate, effusion or overt cardiac decompensation. The overall appearance of the chest is unchanged. Electronically authenticated by: EVENS DAIGLE Date: 2022-07-30 17:14 Normal [facility] BASIC METABOLIC PANELon 05-2 Calcium [Mass/Vol] 9.1 mg/dL Normal 8.6-10.3 [facility] Comment on above: Performed By: #### 0 0071 #### [facility] [address] [place] [address], [place] Chloride [Moles/Vol] 107 mmol/L Normal 98-107 [facility] Comment on above: Performed By: #### 0 0071 #### [facility] [address] [place] [address], [place] CO2 [Moles/Vol] 29 mmol/L Normal 21-31 [facility] Comment on above: Performed By: #### 0 0071 #### [facility] [address] [place] [address], [place] Creatinine [Mass/Vol] 1.40 mg/dL High 0.70-1.30 [facility] Comment on above: Performed By: #### 0 0071 #### [facility] [address] [place] [address], [place] eGFR- non- 52 ml/min/1.73sq m Abnormal >60 [facility] Comment on above: Performed By: #### 0 0071 #### [facility] [address] [place] [address], [place] GFR/1.73 sq M.predicted among blacks MDRD (S/P/Bld) [Vol rate/Area] mL/min/{1.73_m2} Normal >60 [facility] Comment on above: Performed By: #### 0 0071 #### [facility] [address] [place] [address], [place] Glucose [Mass/Vol] 100 mg/dL Normal 70-100 The [facility] Comment on above: Performed By: #### 0 0071 #### [facility] [address] [place] [address], [place] Potassium [Moles/Vol] 3.9 mmol/L Normal 3.5-5.1 [facility] Comment on above: Performed By: #### 0 0071 #### [facility] [address] [place] [address], [place] Sodium [Moles/Vol] 142 mmol/L Normal 136-145 The [facility] Comment on above: Performed By: #### 0 0071 #### [facility] [address] [place] [address], [place] Urea nitrogen [Mass/Vol] 21 mg/dL Normal 7-25 [facility] Comment on above: Performed By: #### 0 0071 #### [facility] [address] CBC COMPLETE BLOOD COUNTon 03-28-2022 Erythrocyte distribution width (RBC) [Ratio] 13.9 % Normal 11.5-15.0 [facility] Comment on above: Performed By: #### 5 0608 #### [facility] [address] [place] [address], [facility] Hematocrit (Bld) [Volume fraction] 41.1 % Normal 39.0-50.0 [facility] Comment on above: Performed By: #### 5 0608 #### [facility] [address] [facility] [place] [address], [facility] Hemoglobin (Bld) [Mass/Vol] 13.7 g/dL Normal 13.0-17.0 [facility] Comment on above: Performed By: #### 5 0608 #### [facility] [address] [place] [address], [facility] MCH (RBC) [Entitic mass] 28.7 pg Normal 27.0-33.0 [facility] Comment on above: Performed By: #### 5 0608 #### [facility] [address] [place] [address], [facility] MCHC (RBC) [Mass/Vol] 33.3 g/dL Normal 32.0-35.0 [facility] Comment on above: Performed By: #### 5 0608 #### [facility] [address] [place] [address], [facility] MCV (RBC) [Entitic vol] 86.2 fL Normal 82.0-98.0 [facility] Comment on above: Performed By: #### 5 0608 #### [facility] [address] [place] [address], [facility] Nucleated RBC/100 WBC (Bld) [Ratio] 0 % Normal 0-0 [facility] Comment on above: Performed By: #### 5 0608 #### [facility] [address] PLAT CNT 186 10*3/uL Normal 150-400 [facility] Comment on above: Performed By: #### 5 0608 #### [facility] [address] RBC (Bld) [#/Vol] 4.77 10*6/uL Normal 4.20-5.70 [facility] Comment on above: Performed By: #### 5 0608 #### [facility] [address] [place] [address], [facility] WBC (Bld) [#/Vol] 6.15 10*3/uL Normal 4.00-10.60 [facility] Comment on above: Performed By: #### 5 0608 #### [facility] [address] Cardiovascular Lab Reporton 03-28-2022 Cardiovascular Lab Report [facility] Patient Name: Kishor [facility] MR #: [id number] Physician: Galindo Jarquin Department of [facility] Medicine Service Date: 03/28/2022 Division of Birthdate: 1960 Cardiology Room #: Adult Cardiovascular Services [address] [address] Cardiovascular Laboratory Report INDICATION: The patient is a 61-year-old man with history of atrial fibrillation and atrial flutter, status post ablation and cardioversion in the past. He presented with shortness of breath on exertion and fatigue. He was found to have atrial flutter, and was referred for cardioversion. PROCEDURE: Cardioversion of atrial flutter to sinus rhythm. METHODS: Procedure was explained to the patient with risks and benefits. He signed informed consent. He was brought to gold leaf laborer in a fasting state. He has been maintained on Eliquis for anticoagulation, without interruption in the past several months. He was sedated using Versed 5 mg and fentanyl 50 mcg. With the patches applied in the anterior and posterior position, synchronized DC cardioversion was performed utilizing 150 joules. The patient remained in atrial flutter. Another shock at 300 joules was delivered and the patient then reverted to sinus rhythm as demonstrated by his ECG. There were no immediate complications. The patient will be observed in the recovery area for 1 to 2 hours, and then discharged to home to follow up in Cardiology Clinic. Electronically Signed by: Galindo Villa M.D. 03/29/2022 09:47 A Galindo Villa M.D. Date Dict: 03/28/2022/09:29 A/Galindo Villa M.D. Date Trans: 03/28/2022 10:15 A/wilma [id number] cc: Fam Vazquez D.O. [address] [place] [phone] Normal [facility]04 SARS-CoV-2 (COVID-19) RNA ALIDA+probe Ql (Unsp spec) Not detected Normal NOT DETECTED [facility] Comment on above: Result Comment: This test is not yet approved or cleared by the [place] FDA. When there are no FDA-approved or cleared tests available, and other criteria are met, FDA can make tests available under an emergency access mechanism called an Emergency Use Authorization (EUA). The EUA for this test is supported by the [place] of Health and Human Service's (HHS's) declaration that circumstances exist to justify the emergency use of in vitro diagnostics for the detection and/or diagnosis of the virus that causes COVID-19. This EUA will remain in effect (meaning this test can be used) for the duration of the COVID-19 declaration justifying emergency of IVDs, unless it is terminated or revoked by FDA (after which the test may no longer be used). When diagnostic testing is negative, the possibility of a false negative should be considered in the context of a patient's recent exposures and the presence of clinical signs and symptoms consistent with SARS-CoV-2. Performed By: #### C [facility] #### [facility] [address] [place] [address] Dr. Roc Carroll Patient Letter FTMCon 2020 Patient Letter FT October 16, 2021 SANTOS KISHOR CASTILLO [address] [address] [facility] 1960 Dear Kishor, This is a SECOND ATTEMPT to remind you that you are due for an appointment with [facility]. Please contact our office at [phone] to schedule an appointment at your earliest convenience. Thank you, [facility] Reminderson 10-16-2021 Reminders - From: Aleena Farnsworth To: [facility] - Reminders/Recalls; Sent: 07/04/2021 13:52:31 EDT Show up: 09/03/2021 13:52:00 EDT Subject: Ambulatory Reminder Due Date/Time: 10/30/2021 13:52:00 EST Reminder/Recall 5 year colon recall 10/30/2021 [facility] recall letter second recall letter Normal [facility] Patient Letter FTon 2020 Patient Letter FT September 03, 2021 SANTOS CASTILLO KISHOR [address] [address] [facility] 1960 Dear Kishor, This is a reminder that you are due for an appointment with [facility]. Please contact our office at [phone] to schedule an appointment at your earliest convenience. Thank you, [facility] Cardiovascular Lab Reporton 05-31-2021 Cardiovascular Lab Report [facility] Patient Name: Santos [facility] W MR #: [id number] Department of Physician: Luis Miguel Trivedi MD Medicine Service Date: 05/28/2021 Division of Birthdate: 1960 Cardiology Room #: CC Adult Cardiovascular Services [facility] [address] [place], [place] [address] Cardiovascular Laboratory Report DIRECT CARDIOVERSION PROCEDURE NOTE Date: 05/28/2021. Type of procedure: DC Cardioversion. Performed by: Luis Miguel Trivedi MD. Informed consent: Signed by patient. Indication: Afib. Preparation and technique: 60-year-old gentleman with a history of persistent atrial fibrillation with a rapid ventricular rate, who had undergone a catheter based ablation and despite the ablation, had persistently stayed in atrial fibrillation. Given the decision, we had made the plan to load him with amiodarone and bring him back for cardioversion. He has been on anticoagulation and been on amiodarone since ablation. Given symptomatic atrial fibrillation, decision was made to cardiovert to sinus rhythm. Patient was brought into the procedure room. After an informed consent was obtained following a discussion with the patient where I explained the risk and benefit of the procedure that is not limited to skin castanon, fluid in the lungs, heart attack, stroke, or even , though that is very rare. Patches were placed in anteroposterior direction and patient was made comfortable with Versed 5mg/ Fentanyl 37.5mcg. Following sedation, the patient underwent 360 joules synchronized cardioversion to sinus rhythm. Post procedure, the patient was stable. No complications noted. Plan: Continue anticoagulation. Ct Amiodarone. Luis Miguel Trivedi MD Cardiac Electrophysiology Electronically Signed by: Luis Miguel Trivedi MD 06/04/2021 12:41 P Luis Miguel Trivedi MD Date Dict: 05/31/2021/02:57 P/Luis Miguel Trivedi MD Date Trans: 05/31/2021 03:39 P/wilma [id number] cc: Fam Vazquez D.O. [address] [place] [address] [address] [facility] [address] [place] [facility] Vital Signs Date Time Vital Sign Value Performing Clinician Facility 12-09-2023 11:00-0500 Body height 177.8 cm Fam Ball Other [facility] Other 12-09-2023 11:00-0500 Body mass index (BMI) [Ratio] 44.22 kg/m2 Fam Ball Other [facility] Other 12-09-2023 11:00-0500 Body weight 139.8 kg Fam Ball Other [facility] Other 12-09-2023 11:00-0500 Diastolic blood pressure 89 mm[Hg] Fam Ball Other [facility] Other 12-09-2023 11:00-0500 Respiratory rate 12 /min Fam Ball Other [facility] Other 12-09-2023 11:00-0500 Systolic blood pressure 124 mm[Hg] Fam Ball Other [facility] Other 10-21-2023 14:30-0500 Body height 177.8 cm Fam Ball Other [facility] Other 10-21-2023 14:30-0500 Body mass index (BMI) [Ratio] 44.85 kg/m2 Fam Ball Other [facility] Other 10-21-2023 14:30-0500 Body weight 141.8 kg Fam Ball Other [facility] Other 10-21-2023 14:30-0500 Diastolic blood pressure 98 mm[Hg] Fam Ball Other [facility] Other 10-21-2023 14:30-0500 Respiratory rate 12 /min Fam Ball Other [facility] Other 10-21-2023 14:30-0500 Systolic blood pressure 151 mm[Hg] Fam Ball Other [facility] Other Encounters Encounter Date Encounter Type Care Provider Facility Start: 12-02-2024 End: 12-02-2024 ambulatory GALINDO VILLA [facility] Start: 07-09-2024 End: 07-09-2024 ambulatory [facility] Work Phone: Start: 07-09-2024 End: 07-09-2024 Patient encounter procedure Count Includes [facility] Work Phone: Start: 05-27-2024 End: 05-27-2024 ambulatory [facility] Work Phone: Start: 05-27-2024 End: 05-27-2024 Patient encounter procedure Count Includes [facility] Work Phone: Start: 05-17-2024 Non-patient / Non-visit Count Includes [facility] Work Phone: Start: 05-14-2024 End: [facility] Start: 12-09-2023 End: 12-09-2023 ambulatory Fam Vazquez Other [facility] Other Start: 12-09-2023 Office outpatient vi sit 15 minutes Fam Vazquez [facility] Start: 10-22-2023 End: 10-22-2023 ambulatory Fam Vazquez Other [facility] Other Start: 10-22-2023 Telephone encounter Fam Vazquez [facility] Start: 10-21-2023 (WellA) Well Adult Fam Vazquez [facility] Start: 10-21-2023 End: 10-21-2023 ambulatory Fam Vazquez Other [facility] Other Start: 10-21-2023 Encounter for genera l adult medical examination without abnormal findings Fam Vazquez [facility] Start: 03-14-2023 End: 03-15-[address] GALINDO VILLA Facility:[facility] Start: 02-17-2023 End: 02-17-2023 ambulatory Fam Vazquez Other [facility] Other Start: 02-17-2023 Office outpatient vi sit 15 minutes Fam George [facility] Start: 02-17-2023 Telephone encounter Fam Vazquez [facility] Start: 12-26-[address] GALINDO VILLA Fac ility:[facility] Start: 10-19-2022 Encounter for genera l adult medical examination without abnormal findings DR FAM VAZQUEZ [facility] Start: 10-15-2022 End: 10-16-[address] FAM VAZQUEZ Facility:[facility] Start: 10-15-2022 End: 10-16-2022 Encounter for general adult medical examination without abnormal findings DR FAM VAZQUEZ Facility:[facility] Start: 10-15-2022 Adult health examination Fam Vazquez Other [facility] Other Start: 10-14-2022 End: 10-15-[address] GALINDO VILLA Facility:[facility] Start: 07-30-2022 End: 07-31-2022 ambulatory BILL RICCI Facility:[facility] Start: 03-28-2022 End: 03-29-2022 ambulatory FAM VAZQUEZ Facility:[facility] Start: 03-26-2022 End: 03-27-[address] GALINDO VILLA Facility:[facility] Start: 05-28-2021 End: 05-29-2021 ambulatory FAM VAZQUEZ Facility:[facility] Procedures Date Procedure Procedure Detail Performing Clinician Start: 10-15-[address] MEYER [place] Comment on above: Performed By: #### P [facility] #### [facility] [address] [place] [address] Dr. Roc Carroll Start: 01-02-2018 Hyperlipidemia screening Fam George Other Start: 05-24-2016 General examination of patient Fam Vazquez Other Start: 05-24-2016 Screening for malign ant neoplasm of colon Fam Vazquez Other Start: 05-24-2016 Screening for malign ant neoplasm of prostate Fam Vazquez Other Depression screening Vilma Vazquez Other Screening for malign ant neoplasm of prostate Fam Vazquez Other Payers Date Payer Category Payer Unknown [id number] 2009 Unknown [id number] 1960 Unknown [id number] 2.16.8 [id number] 1960 Unknown [id number] 2.16.8 [id number] 1960 Unknown [id number] 2.16.84 [id number] 1960 Unknown [id number] 2.16.84 [id number] 1960 Unknown [id number] 2.16.84 [id number] 1960 Unknown [id number] 2.16.84 [id number] 1960 Unknown [id number] 2.16.84 [id number] 1960 Unknown [id number] 2.16.84 [id number] 1957 Private Health Insurance [id number] 1957 Self-pay [id number] Private Health Insurance [id number] Social History Date Type Detail Facility Sex Assigned At [facility] Other Start: 1960 Sex Assigned At Male F [facility] Clinical Notes 02-17-2023 to 12-02-2024 Note Date & Type Note Facility 12-02-2024 Note [facility] Subjective Kishor Graham is a 63 y.o. year old male patient being seen for 6 mo follow up PAF, dilatation of aorta, CHF, and hypertension. Had echo last month and routine labs w/ lipid panel a few weeks ago. He saw his PCP a few weeks ago and he told him he thought he was in afib. Patient denies chest pain, palpitations, lightheadedness/syncope, and bleeding on Eliquis. Patient Active Problem List Diagnosis Paroxysmal atrial fibrillation (CMS/HCC) Chronic combined systolic and diastolic heart failure (CMS/HCC) Dilatation of aorta (CMS/HCC) Dyspnea on exertion Edema of lower extremity Benign hypertensive cardiomyopathy with heart failure (CMS/HCC) Left ventricular systolic dysfunction Malaise and fatigue Morbid obesity (CMS/HCC) Obstructive sleep apnea of adult Peripheral venous insufficiency Encounter for screening for malignant neoplasm of colon Hypertensive disorder Atypical atrial flutter (CMS/HCC) Family History Problem Relation Name Age of Onset Stroke Mother Diabetes Father Social History Tobacco Use Smoking status: Never Smokeless tobacco: Never Substance Use Topics Alcohol use: Yes Comment: occassional HPI Kishor is a 63-year-old man who is seen in follow up on atrial fibrillation/flutter, hypertension, and LV dysfunction that normalized on later testing. He underwent cardiac catheterization 07/03/2016 (normal coronary angiogram) and cardioversion 07/17/2016. In the past he has been found to have blood in stool and underwent a colonoscopy that showed polyps, no issues since then. In addition he has history of CLIVE on CPAP, obesity. Visit of 01/16/2018: He has been well with no chest pain. He has some shortness of breath on moderate exertion. He does not feel palpitations. He is currently on eliquis for anticoagulation. He used to take amiodarone but this was stopped. His blood pressure has been elevated. He has CLIVE and uses the CPAP machine but not consistently. ECG 01/16/2018: Atrial fibrillation with controlled rate of [address]-T wave abnormality. Update 04/01/2018: At last visit, his blood pressure was elevated and I added amlodipine 5 mg daily. He is also taking amlodipine 5 mg / benazepril 20 mg combination. I also added amiodarone since he was back in AF. He has been having lower extremity edema and PCP increased lasix and potassium. He has been doing that lately. There is response to that. He has been having dyspnea on exertion. He has been compliant with eliquis therapy. He recently was treated for ?pneumonia. ECG 04/01/2018: Atrial flutter with variable AV block and controlled rate of [address]-T wave abnormality. Update 04/20/2018: He underwent cardioversion on 04/10/2018. He has been feeling good. He has cough when he lays on his back, has to turn to the side for it to subside. He has no significant dyspnea. He has no chest pain. Leg swelling has been better. I had added aldactone due to low K. Echocardiogram 04/07/2018: Global left ventricular systolic function is normal (Visually estimated EF 55-60%). The left ventricle is moderately enlarged. Mild left ventricular hypertrophy. The septum is abnormal in its motion. Normal right ventricular systolic function. The right ventricle is enlarged. Mild mitral regurgitation. Doppler studies suggest moderately elevated right sided pressures (elevated pulmonary pressure). Mild aortic dilatation . The IVC is dilated. Severe biatrial enlargement ECG 04/20/2018: sinus bradycardia with PVCs in bigeminy, QTc 490 ms. BMP 04/14/2018: Cr 1.4, K 3.4 Update 06/15/2018: He has been doing well. At last visit I had reduced metoprolol to 25 mg bid due to bradycardia. He has not been having much of leg swelling. No chest pain and no palpitations. No significant dyspnea on exertion. His BMP on 06/12/2018 showed K 3.8, Cr 1.44, and BUN 23. Update 04/08/2019: He most recently was getting lower extremity swelling. I increased his lasix to 80 mg in am and 40 mg in pm. The swelling improved, and he continues the same dosing. No chest pain and no palpitations. No significant dyspnea on exertion. No recent labs. Update 05/03/2020: He is seen in follow-up via telemedicine. He has been doing well. He has no symptoms of angina. He has no significant shortness of breath on exertion. He does have occasional lower extremity swelling. He has no palpitations. He had an echocardiogram yesterday that showed persistently normal ventricular function. In April 2019 he had liver and thyroid function and pulmonary function testing and those were normal. Echocardiogram 05/02/2020: The left ventricle is mildly enlarged. Global left ventricular systolic function is normal. The EF is 60 % visually. No regional wall motion abnormality. Grade 2, moderate diastolic dysfunction (pseudonormalized LV filling pattern). The (more content not included)... [facility] 05-14-2024 Note Uses cpap nightly [facility] 05-14-2024 Note HTN stable at home, noted white coat syndrome in office Continue all current meds [facility] 05-14-2024 Note [facility] II- currently e uvolemic without exacerbation Continue GDMT- benzapril, farxiga, beta shane, aldactone and lasix for Diuretic therapy Monitor daily weights, I&O, fluid restriction 1.5-2L/day, renal function and electrolytes- [facility] 05-14-2024 Note Dilatation of Aorta on recent TTE 06/2023 was 3.9 cm Will repeat TTE prior to next visit to monitor for any extention [facility] 05-14-2024 Note [id number]= 3, fe male, HTN, CHF Remains on eliquis anticoagulation- denied any bleeding tendencies. Continue metoprolol 50 mg bid for rate control [facility] 05-14-2024 Note [facility] CARDIOLOGY PROGR ESS NOTE HPI: Kishor Graham is a 63 y.o. male here for routine F/U HPI Known Paroxysmal A fib/flutter, HTN, Reduced (mid range EF) EF that normalized to 50-55%, CLIVE with Cpap, Pulm HTN, dilation of Aorta Patient here for 6 mo follow up persistent afib, hypertension, CHF, and dilatation of aorta. Denies chest pain, lightheadedness/syncope, and bleeding on Eliquis. Does get intermittent redness in his right eye. PINEDA and LE edema remain unchanged. Overall remains active without any limiting symptoms, States he feels rather well and the leg swelling improves while sleeping. Review of Systems Eyes: Positive for redness. Cardiovascular: Positive for dyspnea on exertion and leg swelling. All other systems reviewed and are negative. Previous HPI per Dr Trivedi Reason for visit: afib/flutter hx ablation 11/11/23 Patient here for 4 mo follow up CHF, PAF, and hypertension. Had amiodarone testing in Sep 2023. Denies chest pain, palpitations, and bleeding on Eliquis. Says his LE edema and PINEDA remain stable and unchanged. He states that when he goes hunting with his son he does get short winded after he exerts himself. I put a pulse oximeter on him and made to ambulate significantly. at baseline he was in A-fib with a ventricular rate of 65 even with ambulation his ventricular rate did not improve more than 62 beats a minute. HPI: Kishor Graham is here for follow up regarding afib/flutter Patient has had previous ablation and was recommended for surgical maze for further intervention Discussed with patient we can refer to [facility] or defer to AVN ablation/PPM 05/[address] Trivedi Pt is s/p Afib ablation and was noted to be in AF the next day. The decision was to wait for 1 month and offer DCCV. He is in AF today with controlled VR. He has some cough since ablation. He was a difficult intubation. EP ablation 03/29/21 POST PROCEDURE DIAGNOSIS 1. Persistent atrial fibrillation s/p PVI ([facility]) + Posterior box isolation. 2. Atrial flutter s/p CTI ablation (bidirectional block achieved with significant ablation due to prominent pouch). 3. EP study revealing no retrograde accessory pathway but AF induced at 250ms pacing. 4. No inducible arrhythmia with Adenosine. 5. Elevated LA filling pressures. HPI: Pt called to discuss CT findings. No measurement abt Aorta given but my measurement at arch was 4x4cms. pt wants to proceed with ablation. Prior HPI: 59yr old man with PMH of HTN/ Obesity/ CLIVE opn CPAP is seen in follow up on atrial fibrillation/flutter, hypertension, and LV dysfunction that normalized on later testing. He underwent cardiac catheterization 07/03/2016 (normal coronary angiogram) and cardioversion 07/17/2016. In the past he has been found to have blood in stool and underwent a colonoscopy that showed polyps, no issues since then. He also has a dilated aorta and will need eval. ECG 01/16/2018: Atrial fibrillation with controlled rate of [address]-T wave abnormality. He has been having lower extremity edema and PCP increased lasix and potassium. He has been doing that lately. There is response to that. He has been having dyspnea on exertion. He has been compliant with eliquis therapy. He recently was treated for ?pneumonia. ECG 04/01/2018: Atrial flutter with variable AV block and controlled rate of [address]-T wave abnormality. Update 04/20/2018: He underwent cardioversion on 04/10/2018. He has been feeling good. He has cough when he lays on his back, has to turn to the side for it to subside. He has no significant dyspnea. He has no chest pain. Leg swelling has been better. I had added aldactone due to low K. Echocardiogram 04/07/2018: Global left ventricular systolic function is normal (Visually estimated EF 55-60%). The left ventricle is moderately enlarged. Mild left ventricular hypertrophy. The septum is abnormal in its motion. Normal right ventricular systolic function. The right ventricle is enlarged. Mild mitral regurgitation. Doppler studies suggest moderately elevated right sided pressures (elevated pulmonary pressure). Mild aortic dilatation . The IVC is dilated. Severe biatrial enlargement ECG 04/20/2018: sinus bradycardia with PVCs in bigeminy, QTc 490 ms. BMP 04/14/2018: Cr 1.4, K 3.4 Update 06/15/2018: He has been doing well. At last visit I had reduced metoprolol to 25 mg bid due to bradycardia. He has not been having much of leg swelling. No chest pain and no palpitations. No significant dyspnea on exertion. His BMP on 06/12/2018 showed K 3.8, Cr 1.44, and BUN 23. Update 04/08/2019: He most recently was getting lower extremity swelling. I increased his lasix to 80 mg in am and 40 mg in pm. The swelling improved, and he continues the same dosing. No chest pain and no palpitations. No significant dyspnea on exertion. No recent labs. Update 05/03/2020: He is seen i (more content not included)... [facility] 05-14-2024 Note Patient here for 6 m o follow up persistent afib, hypertension, CHF, and dilatation of aorta. Denies chest pain, lightheadedness/syncope, and bleeding on Eliquis. Does get intermittent redness in his right eye. PINEDA and LE edema remain unchanged. Review of Systems Eyes: Positive for redness. Cardiovascular: Positive for dyspnea on exertion and leg swelling. All other systems reviewed and are negative. [facility] 12-09-2023 Evaluation note Encounter Date Diagnosis Assessment Notes Dec, Olecranon bursitis of left elbow (ICD-10 - M70.22) Protect area and avoid pressure and trauma. It will likely remain slightly swollen and thickened Aspiration would remove fluid but would likely reaccumulate and may increase risk of infection. Dec, Contusion of left elbow, initial encounter (ICD-10 - S50.02XA) Much improved. Bruising has resolved and he has full ROM at the elbow Dec, Chronic anticoagulation (ICD-10 - Z79.01) Increased bleeding intensity. No additional bleeding complications Dec, Inflamed skin tag (ICD-10 - L91.8) 8 large 5 mm skin tags on both sides of neck. They are irritated, inflamed w/ some bleeding. [facility] Other 12-19-2023 Evaluation note* Encounter Date Diagnosis Assessment Notes Treatment Notes Treatment Clinical Notes Oct, Wellness examination (ICD-10 - Z00.00) Healthy diet and exercise. Reviewed age-appropriate preventive testing recommended. Oct, Stage 3a chronic kidney disease (ICD-10 - N18.31) The patient is instructed on adequate control of hypertension and diabetes, if appropriate. They are also educated on the associated risks of NSAIDs and PPI use with kidney disease. They were instructed on adequate fluid balance and to avoid dehydration. Oct, Paroxysmal atrial fibrillation (ICD-10 - I48.0) This patient is rate controlled. This patient is anticoagulated to prevent thromboembolic events. They are maintaining regular scheduled appts with their counter person. Oct, Primary hypertension (ICD-10 - I10) This patient is instructed to consume a healthy, low-fat, low-salt diet. They are also encouraged to continue exercise to achieve/maintain a normal BMI. Oct, Erectile dysfunction due to arterial insufficiency (ICD-10 - N52.01) Requesting Rx for Cialis Oct, Screening PSA (prostate specific antigen) (ICD-10 - Z12.5) Yearly SONAL and PSA Oct, Morbid (severe) obesity due to excess calories (ICD-10 - E66.01) This patient has been instructed on a low-fat, high-fiber diet. They are instructed to reduce calories, portion sizes and snacks. It is recommended that they exercise for 30 minutes, 3-5 times weekly. Oct, Body mass index [BMI] 40.0-44.9, adult (ICD-10 - Z68.41) Oct, Other Patient states that GI informed him that his next scope is in 10 years: 2025 He denies change in appetite, weight or bowel habits. He denies abdominal pain, melena or hematochezia [facility] Other 04-17-2023 Evaluation note* Encounter Date Diagnosis Assessment Notes Treatment Notes Treatment Clinical Notes Feb, Acute non-recurrent maxillary sinusitis (ICD-10 - J01.00) Instructed to use Robitussin or Mucinex for cough, saline or Flonase NS for congestion, Tylenol for pain and fever. Feb, Paroxysmal atrial fibrillation (ICD-10 - I48.0) This patient is in NSR or rate controlled. This patient is anticoagulated to prevent thromboembolic events. They are maintaining regular scheduled appts with their counter person. Feb, CLIVE (obstructive sleep apnea) (ICD-10 - G47.33) This patient is aware of the benefits associated with CLIVE: With continued use, the patient reduces the risk for MS, CVA, HTN, cardiac dysrhythmias and sudden cardiac deaths.The patient is also aware of the association between CLIVE and morning headaches, daytime somnolence, fatigue and obesity, which also has been improved with continued use.The patient is compliant with treatment, wearing the equipment every night for greater than 4 hours.The patient is instructed to continue use of the CPAP for CLIVE treatment. [facility] Other 04-17-2023 Evaluation note* Encounter Date Diagnosis Assessment Notes Treatment Notes Treatment Clinical Notes Feb, Acute non-recurrent maxillary sinusitis (ICD-10 - J01.00) [facility] Other Evaluation noteNo InformationNort [facility] Other Evaluation note* Diagnosis Onset Date Resolution Status Atrial fibrillation acute Hypertension acute Acute bronchitis due to other specified organisms noneactive [facility] Work Phone: Evaluation note* Diagnosis Onset Date Resolution Status Atrial fibrillation acute Hypertension acute Acute bronchitis due to other specified organisms noneactive Cardiomyopathy acute Eustachian tube dysfunction acute Acute sinusitis noneactive [facility] Work Phone: History general Narrative - Reported* Type Description Date Medical History Colon polyps Medical History Essential (primary) hypertension Medical History Paroxysmal atrial fibrillation Medical History Erectile dysfunction due to wandy rial insufficiency Medical History Obstructive sleep apnea Medical History Benign hypertension with chronic kidney disease, stage III Medical History Plantar fasciitis, left Surgical History UMBILICAL HERNIORRAHPHY Surgical History ARTHRSCOPY LEFT KNEE Surgical History CARDIOVERSION 2016 Surgical History COLONOSCOPY 2016 Surgical History ABLATION, ARRHTHMOGE CAROLYN FOCUS, FOR ATRIAL FIBRILLATION, INCARDIAC CATHETERIZATION LABORATORY 2020 Hospitalization History SEE SURGICAL HX [facility] Other History general Narrative - Reported* Type Description Date Medical History Colon polyps Medical History Essential (primary) hypertension Medical History Paroxysmal atrial fibrillation Medical History Erectile dysfunction due to wandy rial insufficiency Medical History Obstructive sleep apnea Medical History Benign hypertension with chronic kidney disease, stage III Medical History Plantar fasciitis, left Medical History CKD stage 3a Surgical History UMBILICAL HERNIORRAHPHY Surgical History ARTHRSCOPY LEFT KNEE Surgical History CARDIOVERSION 2016 Surgical History COLONOSCOPY 2016 Surgical History ABLATION, ARRHTHMOGE CAROLYN FOCUS, FOR ATRIAL FIBRILLATION, INCARDIAC CATHETERIZATION LABORATORY 2020 Hospitalization History SEE SURGICAL HX [facility] Other Summary Purpose Family History No Family History Records Found Relationship Condition Age at Onset Recorded Date/T alia father Heart disease Unknown Diabetes mellitus Unknown Advance Directives No Advanced Directives Records Found Advance Directive Response Recorded Date/ Time Advance Directives Yes May 27, 11:10am Chief Complaint and Reason for Visit Chief Complaint Amb Documentation [phone] fever, chills, congestion Reason for Visit Atrial fibrillation Hypertension Acute bronchitis due to other specified organisms Chief Complaint Amb Documentation [phone] fever, chills, congestion [phone] sinus infection Reason for Visit Atrial fibrillation Hypertension Acute bronchitis due to other specified organisms Cardiomyopathy Eustachian tube dysfunction Acute sinusitis Additional Source Comments (unrecognized sect ion and content) No Status Records FoundNo Status Records FoundNo Status Records FoundNo Status Records Found INFORMATION SOURCE (unrecogn ized section and content) DATE CREATED AUTHOR 10/17/2021 [facility] DATE [facility] DATE CREATED AUTHOR AUTHOR'S ORGANIZ ATION 03/15/2023 [facility] DATE CREATED AUTHOR AUTHOR'S ORGANIZ ATION 12/04/2024 [facility] REASON FOR VISIT (unrecogniz ed section and content) Sinuses -[phone] Info rmationwellnessLab results1 WEEK FOLLOW Care Teams (unrecognized sec tion and content) Team Status: Active Member Role Status Dates Fam Vazquez DO Primary Care Provider Active Team Status: Active Member Role Status Dates Fam Vazquez DO Primary Care Provider Active Start: May 17, 2024 [place] Attending Provider Active St art: May 17, 2024 Team Status: Inactive Member Role Status Dates Fam Vazquez DO Primary Care Provide r, Attending Provider Active Start: May 27, 2024 End: May 27, 2024 Team Status: Inactive Member Role Status Dates Fam Vazquez DO Primary Care Provide r, Attending Provider Active Start: July 09, 2024 End: July 09, 2024 Goals (unrecognized section and content) Goals may be documented in a n alternate section FOR RECORDS PERTAINING TO PATIENTS WHO ARE OR HAVE BEEN ENROLLED IN A CHEMICAL DEPENDENCY/SUBSTANCEABUSE PROGRAM, SOME INFORMATION MAY BE OMITTED. This clinical summary was aggregated from multiple sources. Caution should be exercised in using it in the provision of clinical care. This summary normalizes information from multiple sources, and as a consequence, information in this document may materially change the coding, format and clinical context of patient data. In addition, data may be omitted in some cases. CLINICAL DECISIONS SHOULD BE BASED ON THE PRIMARY CLINICAL RECORDS. [facility] [facility] provides no warranty or guarantee of the accuracy or completeness of information in this document.
[2024-12-06 10:54] LABS: Basophils Percent Auto 0.5 % (0.2-2.0); Eosinophils Absolute Auto 0.1 10^3/uL (0.0-0.7); Eosinophils Percent Auto 2.2 % (0.9-7.0); Immature Granulocytes Abs Auto 0.01 10^3/uL (0.00-0.03); Immature Granulocytes Pct Auto 0.2 % (0.0-0.5); Lymphocytes Absolute Auto 1.6 10^3/uL (1.2-3.8); Lymphocytes Percent Auto 37.7 % (20.5-60.0); Mean Corpuscular Hemoglobin 28.8 pg (25.9-34.0); Mean Corpuscular Volume 84.5 fL (80.0-94.0); Mean Platelet Volume 10.7 fL (9.5-13.5); Monocytes Absolute Auto 0.4 10^3/uL (0.3-0.8); Monocytes Percent Auto 10.1 % (1.7-12.0); Neutrophils Absolute Auto 2.1 10^3/uL (1.4-6.5); Neutrophils Percent Auto 49.3 % (43.0-75.0); Platelet Count 187 10^3/uL (150-450); Red Blood Count 5.56 10^6/uL (4.70-6.10); Red Cell Distribution Width 13.8 % (11.0-15.0); White Blood Count 4.2 10^3/uL (4.0-11.0)
[2024-12-06 11:04] LABS: Anion Gap 10.5; BUN Creatinine Ratio 12.5; Calcium 8.4 mg/dL (8.5-10.1); Carbon Dioxide 28.5 mmol/L (21.0-32.0); Chloride 105 mmol/L (98-107); Estimated GFR (African America >60 (>=60 mL/min/1.73m^2); Estimated GFR (Non-African Ame 57 (>=60 mL/min/1.73m^2); Glucose 84 mg/dL (74-106); Sodium 140 mmol/L (136-145)
== END 2024-12-06 10:35 | disposition home or self-care (01) ==
LOC: LAB 10:36
PROVIDERS: PCP Internal Medicine; Visit Provider Internal Medicine Interventional Cardiology
DX: I48.4 Atypical atrial flutter (principal)
CPT/HCPCS: 36415; 80048; 85025

== ENCOUNTER 2025-05-03 12:48 | Outpatient (OUT) | payer BC, SELFPAY ==
--- NOTE | 2025-05-03 13:15 | XR_ITS ---
[facility] [place] [id number] Patient Name: MAGGIE GRAHAM MRN: [id number] date: 1960 Sex: M Assigned Patient Location: [facility] Current Patient Location: [facility] Accession/Order Number: [id number] Exam Date: 05/03/2025 13:30 Report Date: 05/03/2025 13:30 At the request of: JAIMIE SCHROEDER DO Procedure: XR hip RT 2V w/ pelvis Right hip 2 views with one view pelvis. Reason for exam: Acute right hip pain for 2 months. COMPARISON: None. FINDINGS: Moderate degenerative changes are both hips without acute bony process. XR/XR hip RT 2V w/ pelvis IMPRESSION: Moderate degenerative changes of both hips without acute bony process. Impression dictated by: Luna Lieberman Jr.ONicole 05/03/2025 1:30 PM Dictation Location: [place] [address] Electronically authenticated by: [id number] Y Date: 05/03/2025 13:30
== END 2025-05-03 12:49 | disposition home or self-care (01) ==
LOC: RAD 12:51
PROVIDERS: PCP Internal Medicine; Visit Provider Internal Medicine
DX: M25.551 Pain in right hip (principal); M16.0 Bilateral primary osteoarthritis of hip
CPT/HCPCS: 73502

== ENCOUNTER 2025-06-10 10:56 | Outpatient (OUT) | payer BC, SELFPAY ==
--- OUTSIDE RECORDS SUMMARY | 2025-06-10 10:58 | XMS_ITS | Clinical Summary ---
Author Organization [facility] Address [address] [place] [address] Care Team Providers Care Log Manager Name Role Phone Fam Vazquez DO Primary Care Provider [phone] Allergies No known active allergies Medications tadalafil (Cialis) 20 mg tablet TAKE 1 TABLET BY MOUTH NEEDED FOR ERECTILE DYSFUNCTION 06/18/20 23 Active dapagliflozin propanediol (Farxiga) 10 mgIndications:Ch ronic combined systolic and diastolic heart failure (CMS/HCC),Edema of lower extremity TAKE 1 TABLET BY MOUTH EVERY DAY IN THE MORNING 90 tablet 3 04/27/20 24 Active amiodarone (Pacerone) 200 mg tabletIndication s:Atypical atrial flutter (CMS/HCC),Paroxy smal atrial fibrillation (CMS/HCC) Take 2 tablets (400 mg) by mouth two times daily for 14 days, THEN 1 tablet (200 mg) in the morning. 416 tablet 12/07/19 25 026 Active Additional Information Patient taking differently: 200mg daily, Reported on 01/07/2025 spironolactone (Aldactone) 25 mg tabletIndication s:Chronic diastolic (congestive) heart failure (CMS/HCC) TAKE 1 TABLET BY MOUTH EVERY DAY 90 tablet 3 12/20/19 25 Active benazepril (Lotensin) 40 mg tabletIndication s:Essential (primary) hypertension TAKE 1 TABLET BY MOUTH EVERY DAY 90 tablet 3 12/20/19 25 Active furosemide (Lasix) 40 mg tabletIndication s:Edema, unspecified Take 1 tablet (40 mg) by mouth two times daily. 180 tablet 3 12/29/19 25 026 Active doxazosin (Cardura) 2 mg tabletIndication s:Primary hypertension Take 1 tablet (2 mg) by mouth at bedtime. 90 tablet 3 01/08/20 25 026 Active metoprolol tartrate (Lopressor) 50 mg tabletIndication s:Benign hypertensive heart disease with heart failure (CMS/HCC) TAKE 1 TABLET BY MOUTH IN THE MORNING AND AT BEDTIME. 180 tablet 3 01/18/20 25 Active amLODIPine (Norvasc) 10 mg tabletIndication s:Essential hypertension TAKE 1 TABLET BY MOUTH EVERY DAY IN THE MORNING 90 tablet 3 04/04/20 25 Active Eliquis 5 mg tabletIndication s:Paroxysmal atrial fibrillation (CMS/HCC) TAKE 1 TABLET BY MOUTH TWICE A DAY 180 tablet 3 05/04/20 25 Active potassium chloride CR (Klor-Con M20) 20 mEq ER tabletIndication s:Chronic diastolic (congestive) heart failure (CMS/HCC) Take 1 tablet (20 mEq) by mouth two times daily. 180 tablet 3 05/12/20 25 Active potassium chloride CR (Klor-Con M20) 20 mEq ER tabletIndication s:Chronic diastolic (congestive) heart failure (CMS/HCC) TAKE 1 TABLET BY MOUTH TWICE A DAY 180 tablet 3 03/23/20 25 025 Discontin ued(Reord er) Active Problems Problem Noted Date Diagnosed Date Atypical atrial flutter 12/02/2024 Hypertensive disorder 07/08/2023 07/08/2023 Chronic combined systolic and diastolic heart fa ilure 10/03/2022 Overview (06/06/2023): Recovered EF 10/2022 Assessment & Plan (05/14/2024 12:34 PM EDT): [facility] II- currently euvolemic without exacerbation Continue GDMT- benzapril, farxiga, beta zack, aldactone and lasix for Diuretic therapy Monitor daily weights, I&O, fluid restriction 1.5-2L/day, renal function and electrolytes- Assessment & Plan (06/11/2023 12:56 PM EDT): [facility]- II- currently appears somewhat fluid overloaded and leg edema, and has converted back into a fib/flutter that is rate controlled. Continue GDMT- no ASA in light of eliquis, metoprolol and aldactone- script and Prior auth completed for Farxiga Diuretic therapy continue lasix 40 mg tid and plan to start farxiga. Repeat BMP in 1 week Monitor daily weights, I&O, fluid restriction 1.5-2L/day, renal function and electrolytes- please maintain K+>4 and Mg > 2 Dilatation of aorta 04/10/2022 Assessment & Plan (05/14/2024 12:33 PM EDT): Dilatation of Aorta on recent TTE 06/2023 was 3.9 cm Will repeat TTE prior to next visit to monitor for any extention Assessment & Plan (06/11/2023 12:54 PM EDT): stable Left ventricular systolic dysfunction 04/10/2022 Assessment & Plan (06/11/2023 12:54 PM EDT): Ef remains stable at 50% Edema of lower extremity 10/28/2019 Assessment & Plan (06/11/2023 12:50 PM EDT): Continue lasix 40 mg tid, start farxiga 10 mg daily for increased diuresis Morbid obesity 05/24/2016 Assessment & Plan (06/11/2023 12:50 PM EDT): F/u with PCP Obstructive sleep apnea of adult 05/24/2016 Assessment & Plan (05/14/2024 12:35 PM EDT): Uses cpap nightly Assessment & Plan (06/11/2023 12:50 PM EDT): Continue Cpap at night F/U with PCP Encounter for screening for malignant neoplasm o f colon 05/24/2016 Benign hypertensive cardiomyopathy with heart fa ilure 06/15/2015 Assessment & Plan (05/14/2024 12:35 PM EDT): HTN stable at home, noted white coat syndrome in office Continue all current meds Assessment & Plan (06/11/2023 12:39 PM EDT): HTN currently elevated in office and he states that typically its < 130/80 and was 130/78 at recent echocardiogram Continue all current meds Malaise and fatigue 06/15/2015 Peripheral venous insufficiency 06/15/2015 Assessment & Plan (06/11/2023 12:52 PM EDT): Recommend elevation of BLE as tolerated, walking and activity and script for knee high compression hose provided- instructed to place socks on in the morning and remove in the evening when done standing Paroxysmal atrial fibrillation 01/13/2014 Assessment & Plan (05/14/2024 12:31 PM EDT): [id number]= 3, female, HTN, CHF Remains on eliquis anticoagulation- denied any bleeding tendencies. Continue metoprolol 50 mg bid for rate control Assessment & Plan (06/11/2023 12:54 PM EDT): Continue amiodarone, metoprolol for rate control, will d/w Dr Trivedi for further plan of care - Cardioversion vs changing antiarrythmic medications vs Surgical procedure- MAZE Continue eliquis- states he has not missed any doses over the last 1 month Dyspnea on exertion 01/12/2014 Assessment & Plan (06/11/2023 12:50 PM EDT): Currently stable Resolved Problems Problem Noted Date Diagnosed Date Resolved Date Diastolic heart failure 04/10/2022 08/0 07/2023 Encounters Date Type Department Care Team Description 05/12/2025 Orders Only [facility] [address] [place] [address] Eva Griffiths MA Hypokalemia (Primary Dx) 05/12/2025 Refill [facility] [address] [place] [address] [place] [address] Bridgett Klein MA Chronic diastolic (congestive) heart failure (CMS/HCC) [facility] [address] [place] [address] Rosa Hernandez CNP Paroxysmal atrial fibrillation (CMS/HCC) 04/03/2025 [facility] [address] [place] [address] Rosa Hernandez CNP Essential hypertension 03/19/2025 [facility] [address] [place] [address] Tim Arana MD Chronic diastolic (congestive) heart failure (CMS/HCC) from Last 3 Months Family History Medical History Relation Name Comments Diabetes Father Stroke Mother Relation Name Status Comments Father Mother Social History Tobacco Use Types Packs/Day Years Used Date Smoking Tobacco: Never Smokeless Tobacco: Never Tobacco Cessation:Counseling Given: Not Answered Alcohol Use Standard Drinks/Week Comments Yes 0 (1 standard drink = 0.6 oz pur e alcohol) occassional [place] Safety & Environment Answer Date Rec orded Fear of Current or Ex-Partner Not on file Emotionally Abused Not on file 2023 Physically Abused Not on file 2023 Sexually Abused Not on file 2023 Physically or Sexually Abused Not on file Sex and Gender Information Value Date Recorded Sex Assigned at Male 06/08/2025 9:31 AM EDT Legal Sex Male 11:46 PM EDT Gender Identity Male 06/08/2025 9:31 AM EDT Sexual Orientation Heterosexual or Straight 04/2025 9:31 AM EDT Last Filed Vital Signs Vital Sign Reading Time Taken Comments Blood Pressure 148/86 01/07/2025 10:54 AM EST Pulse 61 01/07/2025 10:54 AM EST Temperature - - Respiratory Rate 20 12/07/2024 3:15 PM EST Oxygen Saturation 96% 01/07/2025 10:54 AM EST Inhaled Oxygen Concentration - - Weight 137 kg (303 lb) 01/07/2025 10:54 AM EST Height 182.9 cm (6') 01/07/2025 10:54 AM EST Body Mass Index 41.09 01/07/2025 10:54 AM EST Plan of Treatment Upcoming Encounters Date Type Department Care Team (Late st Contact Info) Description 06/13/2025 3:45 PM EDT Office Visit [facility] [address] [place] [address] Tim Arana MD [address] [facility] [address] [facility] [place] [place] [address] Health Maintenance Due Date Last Done Comments CT Colonography 1962 Colonoscopy 1962 Colorectal Cancer Screening 1962 FIT-DNA 1962 FIT 1962 FOBT 1962 Sigmoidoscopy 1962 Depression Screening 1974 Pneumococcal Vaccine: Pediatrics (0 to 5 Years) and At-Risk Patients (6 to 64 Years) (1 of 2 - PCV) 1981 Adult Tetanus 1984 COVID-19 Vaccine ( - 2023-2 5 season) 2024 12/05/2021, 02/13/2021, 01/22/2021 Influenza Vaccine (#1) 2025 Zoster Vaccines Completed 11/18/2024, 08/25/2024 HIB Vaccines Aged Out No longer eligi ble based on patient's age to complete this topic HPV Vaccines Aged Out No longer eligi ble based on patient's age to complete this topic IPV Vaccines Aged Out No longer eligi ble based on patient's age to complete this topic Meningococcal B Vaccine Aged Out No l onger eligible based on patient's age to complete this topic Meningococcal Vaccine Aged Out No [place] yash eligible based on patient's age to complete this topic Rotavirus Vaccines Aged Out No longer eligible based on patient's age to complete this topic Insurance [facility] Care Teams Log Manager Relationship Specialty Start Date End Date Fam Vazquez DO [address] [facility] [place] [place] [address] PCP - General 10/03/22
--- OUTSIDE RECORDS SUMMARY | 2025-06-10 10:58 | XMS_ITS | Encounter Summary ---
Author Organization [facility] Address [address] [place] [address] Care Team Providers Care Pedicurist Name Role Phone Fam Vazquez DO Primary Care Provider [phone] Reason for Visit * Reason Comments Med Refill Encounter Details Date Type Department Care Team (Late st Contact Info) Description 03/05/2024 Refill [facility] [address] [place] [address] Tim Arana MD [address] [facility] [address] [facility] [place] [address] Chronic diastolic (congestive) heart failure (CMS/HCC) Social History Tobacco Use Types Packs/Day Years Used Date Smoking Tobacco: Never Smokeless Tobacco: Never Alcohol Use Standard Drinks/Week Comments Yes 0 (1 standard drink = 0.6 oz pur e alcohol) occassional [place] Safety & Environment Answer Date Rec orded [...] Heterosexual or Straight 04/2025 9:31 AM EDT documented as of this encounter Plan of Treatment Upcoming Encounters Date Type Department Care Team (Late st Contact Info) Description 06/13/2025 3:45 PM EDT Office Visit [facility] at [facility] [address] [place] [address] Tim Arana MD [address] [facility] [place] [address] documented as of this encounter Visit Diagnoses Diagnosis Chronic diastolic (congestive) heart failure (CMS/HCC) documented in this encounter Care Teams Pedicurist Relationship Specialty Start Date End Date Fam Vazquez DO [address] [facility] [address] [place] [address] PCP - General 10/03/22 documented as of this encounter
--- OUTSIDE RECORDS SUMMARY | 2025-06-10 10:58 | XMS_ITS | Encounter Summary ---
Author Organization [facility] Address [address] [place] [address] Care Team Providers Care Medical Office Assistant Instructor Name Role Phone Fam Vazquez DO Primary Care Provider [phone] Reason for Visit * Reason Comments Med Refill Encounter Details Date Type Department Care Team (Late st Contact Info) Description 11/13/[address] [address] Tim Arana MD [address] [facility] [place] [phone] Chronic diastolic (congestive) heart failure (CMS/HCC) Social History Tobacco Use Types Packs/Day Years Used Date Smoking Tobacco: Never Smokeless Tobacco: Never Alcohol Use Standard Drinks/Week Comments Yes 0 (1 standard drink = 0.6 oz pur e alcohol) occassional Sex and Gender Information Value Date Recorded Sex Assigned at Male 06/08/2025 9:31 AM EDT Legal Sex Male 11:46 PM EDT Gender Identity Male 06/08/2025 9:31 AM EDT Sexual Orientation Heterosexual or Straight 04/2025 9:31 AM EDT documented as of this encounter Plan of Treatment Upcoming Encounters Date Type Department Care Team (Late st Contact Info) Description 06/13/2025 3:45 PM EDT Office Visit [address] [address] Tim Arana MD [address] [facility] [place] [address] documented as of this encounter Visit Diagnoses Diagnosis Chronic diastolic (congestive) heart failure (CMS/HCC) documented in this encounter Care Teams Medical Office Assistant Instructor Relationship Specialty Start Date End Date Fam Vazquez DO [address] [place] [address] PCP - General 10/03/22 documented as of this encounter
--- OUTSIDE RECORDS SUMMARY | 2025-06-10 11:14 | XMS_ITS | CCD ---
Author Organization [facility] CliniSyfl Care Team Providers Care Reporter Name Role Phone FAM VAZQUEZ Primary Care Unavailable FAM VAZQUEZ Referring Unavailable DUARTELUIS MIGUEL Admitting Unavailable DUARTELUIS MIGUEL Attending Unavailable FAM VAZQUEZ Primary Care Unavailable GEORGE, FAM Referring Unavailable MOUKARBEL, GALINDO Dominguez Admitting Unavailable MOUKAJIM, GALINDO Dominguez Attending Unavailable Fam Vazquez Unavailable GEORGE, DR ETIENNE Admitting Unavailable BALL, DR ETIENNE Attending Unavailable BALL, DR ETIENNE Primary Care Unavailable GEORGE, DR ETIENNE Consulting Unavailable MOUKARBEL, DR MEDLEY [...] Primary Care Unavailable KEIRY, BILL Admitting Unavailable KEIRY, BILL Attending Unavailable BALL, DR ETIENNE Primary Care Unavailable KEIRY, BILL Consulting Unavailable NEFCYEVENS Consulting Unavailable MOUKARBEL, DR MEDLEY Admitting Unavailable MOUKARBEL, DR MEDLEY Attending Unavailable BALL, DR ETIENNE Primary Care Unavailable MOUKARBEL, DR MEDLEY Consulting Unavailable MOUKARBEL, GALINDO Admitting Unavailable MOUKARBEL, GALINDO Attending Unavailable MOUKARBEL, GALINDO Attending Unavailable MOUKARBEL, GALINDO Attending Unavailable MOUKARBEL, GALINDO Referring Unavailable MOUKARBEL, GALINDO Referring Unavailable NAYELI COON Attending Unavailable Fam Vazquez DO Primary Care Provider Fam Vazquez DO Attending Provider [phone] Medications Current Medications Medication Drug Class(es) Dates Sig (Normalized) Sig (Original) amiodarone hydrochloride 200 mg oral tablet (6 sources) Antiarrhythmic Start: 04-08-2025 take 1 tablet by mouth once daily Amiodarone 200 mg tablet Active 200 MG PO Daily April 08, 2025 12:00am Complies with drug therapy take 1 tablet by tiffanie th every twenty-four hours Amiodarone HCl 200 MG 1 tablet Orally Once a day Active amLODIPine 10 mg / benazepril hydrochloride 40 mg oral capsule (10 sources) Dihydropyridine Calcium Channel Shane, Angiotensin Converting Enzyme Inhibitor Start: 05-17-2024 take 1 capsule by mouth once daily Amlodipine-Benazepril 10-40 mg capsule Active 1 CAP PO Daily May 17, 2024 12:00am Complies with drug therapy amLODIPine Besy- Benazepril HCl 10-40 MG as directed Orally Active apixaban 5 mg oral tablet (15 sources) Factor Xa Inhibitor Start: 05-17-2024 take 1 tablet by mouth twice daily Apixaban 5 mg tablet Active 5 MG PO Twice daily May 17, 2024 12:00am Complies with drug therapy Start: 02-17-2023 take 1 tablet by tiffanie th every twelve hours Eliquis 5 MG 1 tablet Orally Twice a day Feb, Active benzonatate 200 mg oral capsule (3 sources) Non-narcotic Antitussive Start: 01-14-2025 take 1 capsule by mouth three times daily Benzonatate 200 mg capsule Active 200 MG PO Three times daily 01 09January 14, 2025 12:00am Complies with drug therapy dapagliflozin 10 mg oral tablet (8 sources) Sodium-Glucose Cotransporter 2 Inhibitor Start: 05-17-2024 take 1 tablet by mouth once daily Dapagliflozin Propanediol (Farxiga) 10 mg tablet Active 10 MG PO Daily May 17, 2024 12:00am Complies with drug therapy take 1 tablet by tiffanie th every twenty-four hours Farxiga 10 MG 1 tablet Orally Once a day Active doxycycline hyclate 100 mg oral capsule (7 sources) Tetracycline-class Drug Start: 04-08-2025 take 1 capsule by mouth twice daily Doxycycline Hyclate 100 mg capsule Active 100 MG PO Twice daily April 08, 2025 12:00am Complies with drug therapy Start: 05-27-2024 End: 11-02-2024 take 1 capsule by mouth twice daily Doxycycline Hyclate 100 mg capsule Discontinued 100 MG PO Twice daily 16 05May 27, 2024 12:00am November 02, 2024 9:42am Start: 12-02-2023 take 1 capsule by mo uth every twelve hours Doxycycline Hyclate 100 MG 1 capsule Orally Twice a day for 7 days Nov, Active furosemide 40 mg oral tablet (10 sources) Loop Diuretic Start: 05-17-2024 take 1 tablet by mouth three times daily Furosemide 40 mg tablet Active 40 MG PO Three times daily May 17, 2024 12:00am Complies with drug therapy take 1 tablet by mouth every eig ht hours Furosemide 40 MG 1 tablet Orally tid Active take 1 tablet by tiffanie th every twenty-four hours metoprolol tartrate 50 mg oral tablet (12 sources) beta-Adrenergic Shane Start: 05-17-2024 take 1 tablet by mouth twice daily Metoprolol Tartrate 50 mg tablet Active 50 MG PO Twice daily May 17, 2024 12:00am Complies with drug therapy Start: 02-17-2023 take 1 tablet by tiffanie every twelve hours Metoprolol Tartrate 25 MG 1 tablet with food Orally Twice a day Feb, Active microencapsulated potassium chloride 20 meq extended release oral tablet (10 sources) Start: 05-17-2024 Potassium Chlo ride (Klor-Con M20) 20 mEq tablet,ER particles/crystals Active 20 MEQ PO Daily May 17, 2024 12:00am Complies with drug therapy take 1 tablet by mouth every eig ht hours Klor-Con M20 20 MEQ 1 tablet with food Orally tid Active take 1 tablet by tiffanie th every twenty-four hours Klor-Con M20 20 MEQ 1 tablet with food Orally Once a day Active spironolactone 25 mg oral tablet (10 sources) Aldosterone Antagonist Start: 05-17-2024 take 1 tablet by mouth once daily Spironolactone (Aldactone) 25 mg tablet Active 25 MG PO Daily May 17, 2024 12:00am Complies with drug therapy tadalafil 20 mg oral tablet (13 sources) Phosphodiesterase 5 Inhibitor Start: 05-17-2024 End: 11-02-2024 Tadalafil (Pulm. Hypertension) 20 mg tablet Active 20 MG PO Every 48 hours as needed for sexual activity November 02, 2024 10:04am Complies with drug therapy Tadalafil 20 MG 1 tablet as needed Orally PRN ED for 30 days Active Completed/Discontinued Medications Medication Drug Class(es) Dates Sig (Normalized) Sig (Original) amoxicillin 875 mg oral tablet (2 sources) Penicillin-class Antibacterial Start: 01-28-2025 End: 04-08-2025 take 1 tablet by mouth twice daily Amoxicillin 875 mg tablet Discontinued 875 MG PO Twice daily 14 January 28, 2025 12:00am April 08, 2025 2:18pm azithromycin 250 mg oral tablet (6 sources) Macrolide Antimicrobial Start: 04-08-2025 End: 04-08-2025 Azithromycin 250 mg tablet Discontinued 250 MG PO .COMPLEX 6 April 08, 2025 12:00am April 08, 2025 3:34pm 2 tabs on first day followed by 1 tab on days 2-5 Start: 02-17-2023 Azithromycin 2 50 MG as directed Orally daily for 5 days Feb, Not-Taking/PRN cefuroxime 500 mg oral tablet (4 sources) Cephalosporin Antibacterial Start: 07-09-2024 End: 01-28-2025 take 1 tablet by mouth twice daily Cefuroxime Axetil 500 mg tablet Discontinued 500 MG PO Twice daily 14 July 09, 2024 12:00am January 28, 2025 4:31pm Problems Active Problems Problem Classification Problem Date Documented Da te Episodic/Chronic Acute bronchitis (6 sources) Acute bronchitis; Translations: [Acute bronchitis due to other specified organisms] 05-27-2024 Episodic Aortic; peripheral; and visceral artery aneurysms (7 sources) Aortic ectasia, unspecified site; Translations: [Aneurysm of ascending aorta] Onset: 10-03-2022 Chronic Comment on above: Echo: 3.7cm - Cardiac dysrhythmias (20 sources) Paroxysmal atrial fibrillation; Translations: [Paroxysmal atrial fibrillation] Onset: 01-13-2014 Chronic Comment on above: Echo: LVEF 50%, MAYRA, dilated RV w/ normal function, RVSP 29, mod MR - 10/2024,Cardioversion - 2015, 12/2024 Chronic kidney disease (11 sources) Chronic kidney disease stage 3; Translations: [Chronic kidney disease, stage III (moderate)] Onset: 10-05-2018 10-28-2024 Chronic Congestive heart failure; nonhypertensive (4 sources) Chronic diastolic (congestive) heart failure; Translations: [Chronic combined systolic (congestive) and diastolic (congestive) heart failure] Onset: 06-06-2023 Chronic Essential hypertension (20 sources) Essential hypertension; Translations: [Essential (primary) hypertension] Onset: 06-15-2015 Chronic Heart valve disorders (6 sources) Rheumatic disorders of both mitral and [...] Onset: 02-16-2018 Episodic Other aftercare (1 source) 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 Episodic Other and [...] hypertension without complications] Onset: 06-15-2015 Chronic Other ear and sense organ disorders (2 sources) Impacted cerumen, right ear; Translations: [Impacted cerumen] 01-14-2025 Episodic Other lower respiratory disease (2 sources) Productive cough -clear sputum; Translations: [Cough productive of clear sputum] 01-14-2025 Episodic Other male genital disorders (5 sources) Impotence of organic origin; Translations: [Erectile dysfunction due to arterial insufficiency] Chronic Other male genital disorders (1 source) Erectile dysfunction due to arterial insufficiency Chronic Other non-traumatic joint disorders (3 sources) Hip pain; Translations: [Pain in right hip] 01-14-2025 Episodic Other non-traumatic joint disorders (2 sources) Pain in right hip; Translations: [Pain in joint, pelvic region and thigh] 01-14-2025 Episodic Other nutritional; endocrine; and metabolic disorders (3 [...] mass index (BMI) 40.0-44.9, adult Chronic Other screening for suspected conditions (not mental disorders or infectious disease) (9 sources) Encounter for screening for malignant neoplasm of prostate; Translations: [Coag./bleeding tests abnormal] Onset: 06-27-2014 Episodic Comment on above: PSA: 0.30 - 10/2022, 0.52 - 10/2023, 0.24 - 11/2024 Other skin disorders (1 source) Other hypertrophic disorders of the skin Episodic Other upper respiratory infections (9 sources) Acute maxillary sinusitis, unspecified; Translations: [Acute maxillary sinusitis] Onset: 10-05-2018 Episodic Otitis media and related conditions (5 sources) Dysfunction of eustachian tube; Translations: [Unspecified Eustachian tube disorder, unspecified ear] 07-09-2024 Episodic Meg-; endo-; and myocarditis; cardiomyopathy (except that caused by tuberculosis or sexually transmitted disease) (9 sources) Cardiomyopathy; Translations: [Cardiomyopathy, unspecified] Onset: 06-06-2023 07-09-2024 Chronic Comment on above: LHC: normal - 06/2016 Echo: LVEF 50-55%, MAYRA, mild RV dilatation w/ normal function, RVSP 29, mod MR, Asc Aorta 3.7cm - 10/2024 Pulmonary heart disease (5 sources) Pulmonary hypertension due to left heart disease; Translations: [Pulmonary hypertension] Onset: 01-07-2025 Chronic Comment on above: Group 2 (left heart failure) Residual codes; unclassified (20 sources) Obstructive sleep apnea syndrome; Translations: [Obstructive sleep apnea (adult) (pediatric)] Onset: 05-24-2016 05-27-2024 Chronic Residual codes; unclassified (3 sources) Obstructive sleep apnea (adult) (pediatric); Translations: [Obstructive sleep apnea (adult) (pediatric)] Onset: 10-03-2022 Chronic Residual codes; unclassified (2 sources) Edema, unspecified; Translations: [Edema, unspecified] Onset: 12-07-2024 Episodic Superficial injury; contusion (4 sources) Nonvenomous insect [...] sources) Chronic cough; Translations: [Chronic cough] Resolved: 12-13-2022 Episodic Other lower respiratory disease (3 sources) Dyspnea; Translations: [Other dyspnea and respiratory abnormalities] Onset: 01-12-2014 Episodic Other lower respiratory disease (3 sources) Orthopnea; Translations: [Orthopnea] Onset: 01-12-2014 Episodic Pneumonia (except that caused by tuberculosis [...] Value Interpretation Reference Range Facility Office Visiton 01-07-2025 Follow-up visit [id number] Monica Graham 1960 M Date Provider Department Center 01/07/2025 GALINDO PENA ARON [facility] Family History Problem Relation Age of Onset Stroke Mother Diabetes Father Family Status - Relation Status Age at Mother Father Level of Service:08900 PA OFFICE/OUTPATIENT ESTABLISHED MOD MDM 30 MIN [facility] HPon 12-07-2024 HP H&P reviewed. The patient was examined and there are no changes to the H&P. [facility] NURSNOTEon 12-07-2024 NURSNOTE RN educated pt on d/ c instructions. This included: site care, limited physical activity, resume normal diet, future appointments, medications, and moderate sedation instructions. RN educated pt on when to notify physician and when to go to the hospital. RN encouraged pt to voice any questions or concerns, and answered any questions or concerns if pt verbalized. Pt was wheeled off of unit with all of belongings. Normal [facility] Basophils Auto (Bld) [#/Vol] on 12-06-2024 Basophils (Bld) [#/Vol] Automated basophil count 0.0-0.1 [facility] Basophils/100 WBC Auto (Bld) on 12-06-2024 Basophils/100 WBC (Bld) Automated basophil % 0.2-2.0 [facility] Eosinophils/100 WBC Auto (Bl d)on 12-06-2024 Eosinophils/100 WBC (Bld) Automated eosinophil % 0.9-7.0 [facility] Erythrocyte distribution wid th Auto (RBC) [Ratio]on 12-06-2024 Erythrocyte distribution width (RBC) [Ratio] Erythrocyte distribution width [Ratio] by Automated count 11.0-15.0 [facility] Estimated glomerular filtrat ion rate (GFR) non- Americanon 12-06-2024 GFR/1.73 sq M.predicted among non-blacks MDRD (S/P/Bld) [Vol rate/Area] Estimated glomerular filtration rate (GFR) non- Low >=60 mL/min/1.73m 2 [facility] Hematocrit Auto (Bld) [Volum e fraction]on 12-06-2024 Hematocrit (Bld) [Volume fraction] Hematocrit [Volume Fraction] of Blood by Automated count 42.0-54.0 [facility] Hemoglobin [Mass/volume] in Bloodon 12-06-2024 Hemoglobin (Bld) [Mass/Vol] Hemoglobin [Mass/volume] in Blood 14.0-18.0 [facility] Laboratory - Chemistry and C hemistry - challengeon 12-06-2024 Calcium [Mass/Vol] 8.4 mg/dL Low 8.5-10.1 [facility] Chloride [Moles/Vol] 105 mmol/L 98-107 [facility] CO2 [Moles/Vol] 28.5 mmol/L 21.0-32.0 [facility] Creatinine [Mass/Vol] 1.28 mg/dL 0.70-1.30 [facility] GFR/1.73 sq M.predicted MDRD (S/P/Bld) [Vol rate/Area] mL/min/{1.73_m2} >=60 mL/min/1.73m 2 [facility] Glucose [Mass/Vol] 84 mg/dL 74-106 [facility] Potassium [Moles/Vol] 4.0 mmol/L 3.5-5.1 [facility] Sodium [Moles/Vol] 140 mmol/L 136-145 [facility] Urea nitrogen [Mass/Vol] 16.0 mg/dL 7.0-18.0 [facility] Urea nitrogen/Creatinine [Mass ratio] 12.5 mg/mg [facility] Laboratory - Hematology and Cell countson 12-06-2024 Immature granulocytes/100 WBC (Bld) 0.2 % 0.0-0.5 [facility] Leukocytes [#/volume] correc lala for nucleated erythrocytes in Blood by Automated counon 12-06-2024 WBC corrected for nucl RBC Auto (Bld) [#/Vol] Leukocytes [#/volume] corrected for nucleated erythrocytes in Blood by Automated coun 4.0-11.0 [facility] Lymphocytes Auto (Bld) [#/Vo l]on 12-06-2024 Lymphocytes (Bld) [#/Vol] Lymphocytes [#/volume] in Blood by Automated count 1.2-3.8 [facility] Lymphocytes/100 WBC Auto (Bl d)on 12-06-2024 Lymphocytes/100 WBC (Bld) Lymphocytes/100 leukocytes in Blood by Automated count 20.5-60.0 [facility] MCH Auto (RBC) [Entitic mass ]on 12-06-2024 MCH (RBC) [Entitic mass] MCH [Entitic mass] by Automated count 25.9-34.0 [facility] MCHC Auto (RBC) [Mass/Vol]on 12-06-2024 MCHC (RBC) [Mass/Vol] MCHC [Mass/volume] by Automated count 29.9-35.2 [facility] MCV Auto (RBC) [Entitic vol] on 12-06-2024 MCV (RBC) [Entitic vol] MCV [Entitic volume] by Automated count 80.0-94.0 [facility] Monocytes Auto (Bld) [#/Vol] on 12-06-2024 Monocytes (Bld) [#/Vol] Automated blood monocyte count 0.3-0.8 [facility] Monocytes/100 WBC Auto (Bld) on 12-06-2024 Monocytes/100 WBC (Bld) Automated monocyte % 1.7-12.0 [facility] Neutrophils Auto (Bld) [#/Vo l]on 12-06-2024 Neutrophils (Bld) [#/Vol] Neutrophils [#/volume] in Blood by Automated count 1.4-6.5 [facility] Neutrophils/100 WBC Auto (Bl d)on 12-06-2024 Neutrophils/100 WBC (Bld) Automated neutrophil % 43.0-75.0 [facility] No Panel Informationon 12-06 Eosinophils # (Auto) 0.1 10 3/uL 0.0-0.7 [facility] Immature Granulocyte # (Auto) 0.01 10 3/uL 0.00-0.03 [facility] Platelet mean volume Auto (B ld) [Entitic vol]on 12-06-2024 Platelet mean volume (Bld) [Entitic vol] Platelet mean volume [Entitic volume] in Blood by Automated count 9.5-13.5 [facility] Platelets Auto (Bld) [#/Vol] on 12-06-2024 Platelets (Bld) [#/Vol] Platelets [#/volume] in Blood by Automated count 150-450 [facility] RBC Auto (Bld) [#/Vol]on RBC (Bld) [#/Vol] Erythrocytes [#/volume] in Blood by Automated count 4.70-6.10 [facility] Serum or plasma anion gap de terminationon 12-06-2024 Anion gap [Moles/Vol] Serum or plasma anion gap determination [facility] HPon 12-02-2024 [facility] Cardiology - [facility] Subjective Kishor Graham is a 63 y.o. year old male patient being seen for 6 mo follow up PAF, dilatation of aorta, CHF, and hypertension. Had echo last month and routine labs w/ lipid panel a few weeks ago. He saw his PCP a few weeks ago and he told him he thought he was in afib. Patient denies chest pain, palpitations, lightheadedness/syncop e, and bleeding on Eliquis. Patient Active Problem [...] Use Topics Alcohol use: Yes Comment: occassional NARESH Iverson is a 63-year-old man who is seen [...] filling pattern). The (more content not included)... Normal [facility] Office Visiton 12-02-2024 Follow-up visit [id number] Monica Graham 1960 M Date Provider Department Center 12/02/2024 GALINDO PENA CARD [facility] Family History Problem Relation Age of Onset Stroke Mother Diabetes Father Family Status - Relation Status Age at Mother Father Level of Service:69940 PA OFFICE/OUTPATIENT ESTABLISHED HIGH MDM 40 MIN Normal [facility] Basophils Auto (Bld) [#/Vol] on 11-05-2024 Basophils (Bld) [#/Vol] Automated basophil count 0.0-0.1 [facility] Basophils/100 WBC Auto (Bld) on 11-05-2024 Basophils/100 WBC (Bld) Automated basophil % 0.2-2.0 [facility] Cholesterol in LDL Calc [Mas s/Vol]on 11-05-2024 Cholesterol in LDL [Mass/Vol] Cholesterol in LDL [Mass/volume] in Serum or Plasma by calculation [facility] Comment on above: <100 mg/dl [id number] 0-129 mg/dl NEAR OR ABOVE [id number] mg/dl BORDERLINE [id number] mg/dl HIGH>190 mg/dl VERY HIGH Cholesterol in VLDL Calc [Ma ss/Vol]on 11-05-2024 Cholesterol in VLDL [Mass/Vol] Cholesterol in VLDL [Mass/volume] in Serum or Plasma by calculation [facility] Eosinophils/100 WBC Auto (Bl d)on 11-05-2024 Eosinophils/100 WBC (Bld) Automated eosinophil % 0.9-7.0 [facility] Erythrocyte distribution wid th Auto (RBC) [Ratio]on 11-05-2024 Erythrocyte distribution width (RBC) [Ratio] Erythrocyte distribution width [Ratio] by Automated count 11.0-15.0 [facility] Estimated glomerular filtrat ion rate (GFR) non- Americanon 11-05-2024 GFR/1.73 sq M.predicted among non-blacks MDRD (S/P/Bld) [Vol rate/Area] Estimated glomerular filtration rate (GFR) non- >=60 mL/min/1.73m 2 [facility] Globulin Calc (S) [Mass/Vol] on 11-05-2024 Globulin (S) [Mass/Vol] Serum globulin measurement by calculation (mass/volume) [facility] Hematocrit Auto (Bld) [Volum e fraction]on 11-05-2024 Hematocrit (Bld) [Volume fraction] Hematocrit [Volume Fraction] of Blood by Automated count 42.0-54.0 [facility] Hemoglobin [Mass/volume] in Bloodon 11-05-2024 Hemoglobin (Bld) [Mass/Vol] Hemoglobin [Mass/volume] in Blood 14.0-18.0 [facility] Laboratory - Chemistry and C hemistry - challengeon 11-05-2024 Albumin [Mass/Vol] 3.5 g/dL 3.4-5.0 [facility] ALP [Catalytic activity/Vol] 84 U/L 46-116 [facility] ALT [Catalytic activity/Vol] 26 U/L 16-63 [facility] AST [Catalytic activity/Vol] 19 U/L 15-37 [facility] Bilirubin [Mass/Vol] 1.0 mg/dL 0.2-1.0 [facility] Calcium [Mass/Vol] 8.9 mg/dL 8.5-10.1 [facility] Chloride [Moles/Vol] 108 mmol/L High 98-107 [facility] Cholesterol [Mass/Vol] 163 mg/dL <=200 [facility] Cholesterol in HDL [Mass/Vol] 44 mg/dL 40-60 [facility] Comment on above: > or =60 mg/dl - LOW CARDIOVASCULAR RISK<40 mg/dl - HIGH CARDIOVASCULAR RISK CO2 [Moles/Vol] 29.0 mmol/L 21.0-32.0 [facility] Creatinine [Mass/Vol] 1.18 mg/dL 0.70-1.30 [facility] GFR/1.73 sq M.predicted MDRD (S/P/Bld) [Vol rate/Area] mL/min/{1.73_m2} >=60 mL/min/1.73m 2 [facility] Glucose [Mass/Vol] 99 mg/dL 74-106 [facility] Potassium [Moles/Vol] 3.9 mmol/L 3.5-5.1 [facility] Protein [Mass/Vol] 6.8 g/dL 6.4-8.2 [facility] Sodium [Moles/Vol] 142 mmol/L 136-145 [facility] Triglyceride [Mass/Vol] 61 mg/dL <=150 [facility] Urea nitrogen [Mass/Vol] 18.0 mg/dL 7.0-18.0 [facility] Urea nitrogen/Creatinine [Mass ratio] 15.3 mg/mg [facility] Laboratory - Hematology and Cell countson 11-05-2024 Immature granulocytes/100 WBC (Bld) 0.2 % 0.0-0.5 [facility] Leukocytes [#/volume] correc lala for nucleated erythrocytes in Blood by Automated counon 11-05-2024 WBC corrected for nucl RBC Auto (Bld) [#/Vol] Leukocytes [#/volume] corrected for nucleated erythrocytes in Blood by Automated coun 4.0-11.0 [facility] Lymphocytes Auto (Bld) [#/Vo l]on 11-05-2024 Lymphocytes (Bld) [#/Vol] Lymphocytes [#/volume] in Blood by Automated count 1.2-3.8 [facility] Lymphocytes/100 WBC Auto (Bl d)on 11-05-2024 Lymphocytes/100 WBC (Bld) Lymphocytes/100 leukocytes in Blood by Automated count 20.5-60.0 [facility] MCH Auto (RBC) [Entitic mass ]on 11-05-2024 MCH (RBC) [Entitic mass] MCH [Entitic mass] by Automated count 25.9-34.0 [facility] MCHC Auto (RBC) [Mass/Vol]on 11-05-2024 MCHC (RBC) [Mass/Vol] MCHC [Mass/volume] by Automated count 29.9-35.2 [facility] MCV Auto (RBC) [Entitic vol] on 11-05-2024 MCV (RBC) [Entitic vol] MCV [Entitic volume] by Automated count 80.0-94.0 [facility] Monocytes Auto (Bld) [#/Vol] on 11-05-2024 Monocytes (Bld) [#/Vol] Automated blood monocyte count 0.3-0.8 [facility] Monocytes/100 WBC Auto (Bld) on 11-05-2024 Monocytes/100 WBC (Bld) Automated monocyte % 1.7-12.0 [facility] Neutrophils Auto (Bld) [#/Vo l]on 11-05-2024 Neutrophils (Bld) [#/Vol] Neutrophils [#/volume] in Blood by Automated count 1.4-6.5 [facility] Neutrophils/100 WBC Auto (Bl d)on 11-05-2024 Neutrophils/100 WBC (Bld) Automated neutrophil % 43.0-75.0 [facility] No Panel Informationon 11-05 Eosinophils # (Auto) 0.1 10 3/uL 0.0-0.7 [facility] Immature Granulocyte # (Auto) 0.01 10 3/uL 0.00-0.03 [facility] Prostate Specific Antigen Screen 0.24 ng/mL <=4.00 [facility] Platelet mean volume Auto (B ld) [Entitic vol]on 11-05-2024 Platelet mean volume (Bld) [Entitic vol] Platelet mean volume [Entitic volume] in Blood by Automated count 9.5-13.5 [facility] Platelets Auto (Bld) [#/Vol] on 11-05-2024 Platelets (Bld) [#/Vol] Platelets [#/volume] in Blood by Automated count 150-450 [facility] RBC Auto (Bld) [#/Vol]on RBC (Bld) [#/Vol] Erythrocytes [#/volume] in Blood by Automated count 4.70-6.10 [facility] Serum or plasma albumin/glob ulin mass ratioon 11-05-2024 Albumin/Globulin [Mass ratio] Serum or plasma albumin/globulin mass ratio [facility] Serum or plasma anion gap de terminationon 11-05-2024 Anion gap [Moles/Vol] Serum or plasma anion gap determination [facility] Serum or plasma total choles terol/high density lipoprotein (HDL) cholesterol mass cassie 11-05-2024 Cholesterol.total/Ch olesterol in HDL [Mass ratio] Serum or plasma total cholesterol/high density lipoprotein (HDL) cholesterol mass rat [facility] Comment on above: 3.3 - 4.4 LOW RISK4. 4 - 7.1 AVERAGE RISK7.1 - 11.0 MODERATE RISK>11.0 HIGH RISK 36on 11-04-2024 36 Regarding echo performed on 10/20/2024: Nayeli Coon, REINA Griffiths MA Let pt know everything on echo remains stable, no acute concerns. Mitral valve with mod regurg and Aorta without widening- remains stable. Patient made aware. He is scheduled to see Dr. Villa on 12/02/2024. Normal [facility] Orders Onlyon 11-02-2024 Orders Only [id number] Rick Grahami n W 1960 M Date Provider Department Center 11/02/2024 ADALID STRANGE Family History Problem Relation Age of Onset Stroke Mother Diabetes Father Family Status - Relation Status Age at Mother Father Normal [facility] Orders Onlyon 05-17-2024 Orders Only [id number] SantosMonica n W 1960 M Date Provider Department Center 05/17/2024 ADALID STRANGE Hos Family History Problem Relation Age of Onset Stroke Mother Diabetes Father Family Status - Relation Status Age at Mother Father Normal [facility] Office Visiton 05-14-2024 Follow-up visit [id number] Santos,Monica n W 1960 M Date Provider Department Center 05/14/2024 NAYELI ORMO Family History Problem Relation Age of Onset Stroke Mother Diabetes Father Family Status - Relation Status Age at Mother Father Level of Service:33495 PA OFFICE/OUTPATIENT ESTABLISHED LOW MDM 20 MIN Normal [facility] PROF CHEM 8 (BAS METB)on Anion gap [Moles/Vol] 11.2 mmol/L Normal [facility] Comment on above: Performed By: #### B MP #### [facility] [address] [address] [address] Roc Carroll Calcium [Mass/Vol] 8.4 mg/dL Critically low 8.5-10.1 Th [facility] Comment on above: Performed By: #### B MP #### [facility] [address] [address] [address] Roc Carroll Chloride [Moles/Vol] 106 mmol/L Normal 98-107 [facility] Comment on above: Performed By: #### B MP #### [facility] [address] [address] [address] Roc Carroll CO2 [Moles/Vol] 28.3 mmol/L Normal 21.0-32.0 [facility] Comment on above: Performed By: #### B MP #### [facility] [address] [address] [address] Roc Carroll Creatinine [Mass/Vol] 1.36 mg/dL Critically high 0.70-1.30 [facility] Comment on above: Performed By: #### B MP #### [facility] [address] [address] [address] Roc Carroll EGFR-AF MONTSERRATIAN >60 Normal >=60 The [facility] Comment on above: Performed By: #### B MP #### [facility] [address] [address] [address] Roc Carroll EGFR-NON AF MONTSERRATIAN 53 mL/min/1.73m2 Critically low >=60 [facility] Comment on above: Performed By: #### B MP #### [facility] [address] [address] [address] Roc Carroll Glucose [Mass/Vol] 99 mg/dL Normal 74-106 The [facility] Comment on above: Performed By: #### B MP #### [facility] [address] [address] [address] Roc Carroll Potassium [Moles/Vol] 3.5 mmol/L Normal 3.5-5.1 [facility] Comment on above: Performed By: #### B MP #### [facility] [address] [address] [address] Roc Carroll Sodium [Moles/Vol] 142 mmol/L Normal 136-145 [facility] Comment on above: Performed By: #### B MP #### [facility] [address] [address] [address] Roc Carroll Urea nitrogen [Mass/Vol] 13.0 mg/dL Normal 7.0-18.0 [facility] Comment on above: Performed By: #### B MP #### [facility] [address] [address] [address] Roc Carroll Urea nitrogen/Creatinine [Mass ratio] 9.6 mg/mg Normal [facility] Comment on above: Performed By: #### B MP #### [facility] [address] [address] [address] Roc Carroll PROF CHEM 8 (BAS METB)on Anion gap [Moles/Vol] 10.3 mmol/L Normal [facility] Comment on above: Performed By: #### B MP #### [facility] [address] [address] [address] Roc Carroll Calcium [Mass/Vol] 8.8 mg/dL Normal 8.5-10.1 [facility] Comment on above: Performed By: #### B MP #### [facility] [address] [place] [address] Dr. Roc Carroll Chloride [Moles/Vol] 103 mmol/L Normal 98-107 [facility] Comment on above: Performed By: #### B MP #### [facility] [address] [address] [address] Roc Carroll CO2 [Moles/Vol] 30.4 mmol/L Normal 21.0-32.0 [facility] Comment on above: Performed By: #### B MP #### [facility] [address] [address] [address] Roc Carroll Creatinine [Mass/Vol] 1.31 mg/dL Critically high 0.70-1.30 [facility] Comment on above: Performed By: #### B MP #### [facility] [address] [address] [address] Roc Carroll EGFR-AF MONTSERRATIAN >60 Normal >=60 [facility] Comment on above: Performed By: #### B MP #### [facility] [address] [address] [address] Roc Carroll EGFR-NON AF MONTSERRATIAN 56 mL/min/1.73m2 Critically low >=60 [facility] Comment on above: Performed By: #### B MP #### [facility] [address] [address] [address] Roc Carroll Glucose [Mass/Vol] 91 mg/dL Normal 74-106 [facility] Comment on above: Performed By: #### B MP #### [facility] [address] [address] [address] Roc Carroll Potassium [Moles/Vol] 3.7 mmol/L Normal 3.5-5.1 [facility] Comment on above: Performed By: #### B MP #### [facility] [address] [address] [address] Roc Carroll Sodium [Moles/Vol] 140 mmol/L Normal 136-145 [facility] Comment on above: Performed By: #### B MP #### [facility] [address] [address] [address] Roc Carroll Urea nitrogen [Mass/Vol] 17.0 mg/dL Normal 7.0-18.0 [facility] Comment on above: Performed By: #### B MP #### [facility] [address] [address] [address] Roc Carroll Urea nitrogen/Creatinine [Mass ratio] 13.0 mg/mg Normal [facility] Comment on above: Performed By: #### B MP #### [facility] [address] [address] [address] Roc Carroll ECHOCARDIO M/2D COMPLETEon 1 12-15-2021 ECHOCARDIO M/2D COMPLETE Patient: KISHOR GRAHAM Exam Date: 10/14/2022 : 1960 Gender:M Ordering : DR GALINDO VILLA M.D. Admission #: [id number] Family : Order #: [id number] CLICK HERE TO VIEW EXAM ECHOCARDIOGRAM REPORT [...] (Peak Brad): 2.42 cm2, 2.42 cm2 Deceleration Preston: 1.90 m/s2 Pressure Half-Time: 778.15 ms Peak [...] Villa M.D. on 10/15/2022 at 18:16 Normal [facility] HEMOGLOBINon 10-14-2022 Hemoglobin (Bld) [Mass/Vol] 14.7 g/dL Normal 14.0-18.0 [facility] Comment on above: Performed By: #### H GB #### [facility] [address] [address] [address] Roc Carroll LIPID PROFILEon 07-30-2022 CHOL-HDL RATIO NORM SEE BELOW Normal [facility] Comment on above: Result Comment: 3.3 - 4.4 LOW RISK 4.4 - 7.1 AVERAGE RISK 7.1 - 11.0 MODERATE RISK >11.0 HIGH RISK Performed By: #### L IPID, TSH, LIVER #### [facility] [address] [address] [address] Roc Carroll Cholesterol [Mass/Vol] 174 mg/dL Normal <=200 [facility] Comment on above: Performed By: #### L IPID, TSH, LIVER #### [facility] [address] [address] [address] Roc Carroll Cholesterol in HDL [Mass/Vol] 43 mg/dL Normal 40-60 [facility] Comment on above: Performed By: #### L IPID, TSH, LIVER #### [facility] [address] [address] [address] Roc Carroll Cholesterol in LDL [Mass/Vol] 117.2 mg/dL Normal [facility] Comment on above: Performed By: #### L IPID, TSH, LIVER #### [facility] [address] [address] [address] Roc Carroll Cholesterol.total/Ch olesterol in HDL [Mass ratio] 4.0 {ratio} Normal [facility] Comment on above: Performed By: #### L IPID, TSH, LIVER #### [facility] [address] [address] [address] Roc Carroll HDL NORMAL > or = 60 mg/dl - LO W CARDIOVASCULAR RISK <40 mg/dl - HIGH CARDIOVASCULAR RISK Normal [facility] Comment on above: Performed By: #### L IPID, TSH, LIVER #### [facility] [address] [address] [address] Roc Carroll LDL CALC NORMAL SEE BELOW Normal [facility] Comment on above: Result Comment: <100 mg/dl OPTIMAL 100 - 129 mg/dl NEAR OR ABOVE OPTIMAL 130 - 159 mg/dl BORDERLINE HIGH 160 - 189 mg/dl HIGH >190 mg/dl VERY HIGH Performed By: #### L IPID, TSH, LIVER #### [facility] [address] [address] [address] Roc Carroll Triglyceride [Mass/Vol] 69 mg/dL Normal <=150 [facility] Comment on above: Performed By: #### L IPID, TSH, LIVER #### [facility] [address] [address] [address] Roc Carroll VLDL CALC 13.8 mg/dL Normal [facility] Comment on above: Performed By: #### L IPID, TSH, LIVER #### [facility] [address] [address] [address] Roc Carroll LIVER PROFILEon 07-30-2022 Albumin [Mass/Vol] 3.8 g/dL Normal 3.4-5.0 [facility] Comment on above: Performed By: #### L IPID, TSH, LIVER #### [facility] [address] [address] [address] Roc Carroll Albumin/Globulin [Mass ratio] 1.2 {ratio} Normal [facility] Comment on above: Performed By: #### L IPID, TSH, LIVER #### [facility] [address] [address] [address] Roc Carroll ALP [Catalytic activity/Vol] 63 U/L Normal 46-116 [facility] Comment on above: Performed By: #### L IPID, TSH, LIVER #### [facility] [address] [address] [address] Roc Carroll ALT [Catalytic activity/Vol] 25 U/L Normal 16-63 [facility] Comment on above: Performed By: #### L IPID, TSH, LIVER #### [facility] [address] [address] [address] Roc Carroll AST [Catalytic activity/Vol] 16 U/L Normal 15-37 [facility] Comment on above: Performed By: #### L IPID, TSH, LIVER #### [facility] [address] [place] [address] Dr. Roc Carroll BILI, CONJUGATED 0.2 mg/dL Normal 0.0-0.2 [facility] Comment on above: Performed By: #### L IPID, TSH, LIVER #### [facility] [address] [place] [address] Dr. Roc Carroll Bilirubin [Mass/Vol] 0.9 mg/dL Normal 0.2-1.0 [facility] Comment on above: Performed By: #### L IPID, TSH, LIVER #### [facility] [address] [place] [address] Dr. Roc Carroll Globulin (S) [Mass/Vol] 3.2 g/dL Normal [facility] Comment on above: Performed By: #### L IPID, TSH, LIVER #### [facility] [address] [address] [address] Roc Carroll Protein [Mass/Vol] 7.0 g/dL Normal 6.4-8.2 [facility] Comment on above: Performed By: #### L IPID, TSH, LIVER #### [facility] [address] [address] [address] Roc Carroll TSHon 07-30-2022 TSH 3.681 uIU/mL Normal 0.358-3.740 [facility] Comment on above: Performed By: #### L IPID, TSH, LIVER #### [facility] [address] [address] [address] Roc Carroll XR CHEST 2 Von [...] by: EVENS DAIGLE Date: 2022-07-30 17:14 Normal [facility] BASIC METABOLIC PANELon 05-2 Calcium [Mass/Vol] 9.1 mg/dL Normal 8.6-10.3 [facility] Comment on above: Performed By: #### 0 0071 #### [facility] [address] [place] [address], [facility] Chloride [Moles/Vol] 107 mmol/L Normal 98-[address] [facility] Comment on above: Performed By: #### 0 0071 #### [facility] [address] [place] [address], [facility] CO2 [Moles/Vol] 29 mmol/L Normal 21-31 [facility] Comment on above: Performed By: #### 0 0071 #### [facility] [address] [place] [address], [facility] Creatinine [Mass/Vol] 1.40 mg/dL High 0.70-1.[address] [facility] Comment on above: Performed By: #### 0 0071 #### [facility] [address] [place] [address], [facility] eGFR- non- 52 ml/min/1.73sq m Abnormal >60 [facility] Comment on above: Performed By: #### 0 0071 #### [facility] [address] [place] [address], [facility] GFR/1.73 sq M.predicted among blacks MDRD (S/P/Bld) [Vol rate/Area] mL/min/{1.73_m2} Normal >60 [facility] Comment on above: Performed By: #### 0 0071 #### [facility] [address] [place] [address], [facility] Glucose [Mass/Vol] 100 mg/dL Normal 70-100 [facility] Comment on above: Performed By: #### 0 0071 #### [facility] [address] [place] [address], [facility] Potassium [Moles/Vol] 3.9 mmol/L Normal 3.5-5.[address] [facility] Comment on above: Performed By: #### 0 0071 #### [facility] [address] [facility] [place] [place] [address], [facility] Sodium [Moles/Vol] 142 mmol/L Normal 136-145 [facility] Comment on above: Performed By: #### 0 0071 #### [facility] [address] [place] [address], [facility] Urea nitrogen [Mass/Vol] 21 mg/dL Normal 7-25 [facility] Comment on above: Performed By: #### 0 0071 #### [facility] [address] [facility] [place] [place] [address], [facility] CBC COMPLETE BLOOD COUNTon 0 03-28-2022 Erythrocyte distribution width (RBC) [Ratio] 13.9 % Normal 11.5-15.0 [facility] Comment on above: Performed By: #### 5 0608 #### [facility] [address] [facility] Hematocrit (Bld) [Volume fraction] 41.1 % Normal 39.0-50.0 [facility] Comment on above: Performed By: #### 5 0608 #### [facility] [address] [facility] [address] Hemoglobin (Bld) [Mass/Vol] 13.7 g/dL Normal 13.0-17.0 [facility] Comment on above: Performed By: #### 5 0608 #### [facility] [address] MCH (RBC) [Entitic mass] 28.7 pg Normal 27.0-33.0 [facility] Comment on above: Performed By: #### 5 0608 #### [facility] [address] MCHC (RBC) [Mass/Vol] 33.3 g/dL Normal 32.0-35.0 [facility] Comment on above: Performed By: #### 5 0608 #### [facility] [address] [place] [address], [facility] MCV (RBC) [Entitic vol] 86.2 fL Normal 82.0-98.0 [facility] Comment on above: Performed By: #### 5 0608 #### [facility] [address] Nucleated RBC/100 WBC (Bld) [Ratio] 0 % Normal 0-0 [facility] Comment on above: Performed By: #### 5 0608 #### [facility] [address] [place] [address], [facility] PLAT CNT 186 10*3/uL Normal 150-400 [facility] Comment on above: Performed By: #### 5 0608 #### [facility] [address] [place] [address], [facility] RBC (Bld) [#/Vol] 4.77 10*6/uL Normal 4.20-5.70 [facility] Comment on above: Performed By: #### 5 0608 #### [facility] [address] [place] [address], [facility] WBC (Bld) [#/Vol] 6.15 10*3/uL Normal 4.00-10.60 [facility] Comment on above: Performed By: #### 5 0608 #### [facility] [address] [facility] [place], [place] [address] [place] [address] Cardiovascular Lab Reporton 03-28-2022 Cardiovascular Lab Report [facility] Patient Name: Kishor Graham [facility] MR #: [id number] Physician: Galindo Bueno of Janet Villa Medicine Service Date: 03/28/2022 Division of Birthdate: 1960 Cardiology Room #: [facility] Cardiovascular Services [address] [address] Cardiovascular Laboratory Report INDICATION: The patient is [...] signed informed consent. He was brought to dental lab technician in a fasting state. He has been [...] Villa M.D. Date Trans: 03/28/2022 10:15 A/wilma [id number] cc: Fam Vazquez D.O. [address] [place] [address] A [facility] [id number] Normal [facility] Covid-19 PCR ([facility])on 03-04 SARS-CoV-2 (COVID-19) RNA ALIDA+probe Ql (Unsp spec) Not detected Normal NOT DETECTED [facility] Comment on above: Result Comment: This test is not yet approved or cleared by the [place] FDA. When there are no FDA-approved or cleared tests available, and other criteria are met, FDA can make tests available under an emergency access mechanism called an Emergency Use Authorization (EUA). The EUA for this test is supported by the Machine Maintenance Mechanic of Health and Human Service's (HHS's) declaration [...] consistent with SARS-CoV-2. Performed By: #### [facility] #### [facility] [address] [address] [address] Roc Carroll Patient Letter FTon 2020 Patient Letter [facility] October 16, 2021 KISHOR GRAHAM III [address] [address] KISHOR GRAHAM III 1960 Dear Kishor, This is a SECOND ATTEMPT to remind you that you are due for an appointment with [facility]. Please contact our office at [phone] to schedule an appointment at your earliest convenience. Thank you, [facility] Reminderson 10-16-2021 Reminders - From: Aleena Farnsworth To: [facility] - Reminders/Recalls; Sent: 07/04/2021 13:52:31 EDT Show up: 09/03/2021 13:52:00 EDT Subject: Ambulatory Reminder Due Date/Time: 10/30/2021 13:52:00 EST Reminder/Recall 5 year colon recall 10/30/2021 salam first recall letter second recall letter Normal [facility] Patient Letter FTon 2020 Patient Letter [facility] September 03, 2021 KISHOR GRAHAM III [address] [address] SANTOSKISHOR MIDDLETON III 1960 Dear Kishor, This is a reminder that you are due for an appointment with [facility]. Please contact our office at [phone] to schedule an appointment at your earliest convenience. Thank you, [facility] Cardiovascular Lab Reporton 05-31-2021 Cardiovascular Lab Report [facility] Patient Name: Santos [facility] W MR #: [id number] Department of Physician: Luis Miguel Trivedi MD Medicine Service Date: 05/28/2021 Division of Birthdate: 1960 Cardiology Room #: Adult Cardiovascular Services [address] [place] [address] Cardiovascular Laboratory Report DIRECT CARDIOVERSION PROCEDURE NOTE [...] Trivedi MD Date Trans: 05/31/2021 03:39 P/wilma [id number] cc: Fam Vazquez D.O. [address] [place] [id number] [facility] Vital Signs Date Time Vital Sign Value Performing Clinician Facility 05-04-2025 09:44-0400 Body height 177.8 cm Fam Vazquez DO Work Phone: [facility] 05-04-2025 09:44-0400 Body mass index (BMI) [Ratio] 44.6 kg/m2 Fam Vazquez DO Work Phone: [facility] 05-04-2025 09:44-0400 Body weight 141.12 kg Fam Vazquez DO Work Phone: [facility] 05-04-2025 09:44-0400 Diastolic blood pressure 72 mm[Hg] Fam Ball DO Work Phone: [facility] 05-04-2025 09:44-0400 Heart rate 62 /min Fam Ball DO Work Phone: [facility] 05-04-2025 09:44-0400 Respiratory rate 12 /min Fam Ball DO Work Phone: [facility] 05-04-2025 09:44-0400 Systolic blood pressure 119 mm[Hg] Fam Ball DO Work Phone: [facility] 04-08-2025 14:22-0400 Body height 177.8 cm [facility] 04-08-2025 14:22-0400 Body mass index (BMI) [Ratio] 44.6 kg/m2 [facility] 04-08-2025 14:22-0400 Body weight 141.18 kg [facility] 04-08-2025 14:22-0400 Diastolic blood pressure 82 mm[Hg] [facility] 04-08-2025 14:22-0400 Heart rate 73 /min [facility] 04-08-2025 14:22-0400 Respiratory rate 12 /min [facility] 04-08-2025 14:22-0400 Systolic blood pressure 151 mm[Hg] [facility] 01-14-2025 09:29-0400 Body height 177.8 cm [facility] 01-14-2025 09:29-0400 Body mass index (BMI) [Ratio] 44.4 kg/m2 [facility] 01-14-2025 09:29-0400 Body weight 140.33 kg [facility] 01-14-2025 09:29-0400 Diastolic blood pressure 77 mm[Hg] [facility] 01-14-2025 09:29-0400 Heart rate 66 /min [facility] 01-14-2025 09:29-0400 Respiratory rate 12 /min [facility] 01-14-2025 09:29-0400 Systolic blood pressure 130 mm[Hg] [facility] 11-02-2024 08:45-0500 Body height 177.8 cm [facility] 11-02-2024 08:45-0500 Body mass index (BMI) [Ratio] 42.6 kg/m2 [facility] 11-02-2024 08:45-0500 Body weight 134.71 kg [facility] 11-02-2024 08:45-0500 Diastolic blood pressure 89 mm[Hg] [facility] 11-02-2024 08:45-0500 Heart rate 56 /min [facility] 11-02-2024 08:45-0500 Systolic blood pressure 139 mm[Hg] [facility] 12-09-2023 11:00-0500 Body height 177.8 cm Fam Ball Other [facility] [employer] Other 12-09-2023 11:00-0500 Body mass index (BMI) [Ratio] 44.22 kg/m2 Fam Ball Other [employer] [facility] [employer] Other 12-09-2023 11:00-0500 Body weight 139.8 kg Fam Ball Other [employer] Other 12-09-2023 11:00-0500 Diastolic blood pressure 89 mm[Hg] Fam Ball Other [employer] Other 12-09-2023 11:00-0500 Respiratory rate 12 /min Fam Ball Other [employer] Other 12-09-2023 11:00-0500 Systolic blood pressure 124 mm[Hg] Fam Ball Other [employer] Other 10-21-2023 14:30-0500 Body height 177.8 cm Fam Ball Other [employer] Other 10-21-2023 14:30-0500 Body mass index (BMI) [Ratio] 44.85 kg/m2 Fam Ball Other [facility] Other 10-21-2023 14:30-0500 Body weight 141.8 kg Fam Vazquez Other [employer] Other 10-21-2023 14:30-0500 Diastolic blood pressure 98 mm[Hg] Fam Vazquez Other [facility] Other 10-21-2023 14:30-0500 Respiratory rate 12 /min Fam Vazquez Other [employer] Other 10-21-2023 14:30-0500 Systolic blood pressure 151 mm[Hg] Fam Vazquez Other [employer] Other Encounters Encounter Date Encounter Type Care Provider Facility Start: 05-04-2025 End: 05-04-2025 ambulatory Fam Vazquez DO Work Phone: [facility] Work Phone: Start: 05-04-2025 End: 05-04-2025 Patient encounter procedure Fam Vazquez DO -[facility] Work Phone: Start: 04-08-2025 End: 04-08-2025 ambulatory [facility] Work Phone: Start: 04-08-2025 End: 04-08-2025 Patient encounter procedure [facility] Work Phone: Start: 01-14-2025 End: 01-14-2025 ambulatory [facility] Work Phone: Start: 01-14-2025 End: 01-14-2025 Patient encounter procedure [facility] Work Phone: Start: 01-07-2025 End: 01-07-2025 ambulatory [facility] Start: 12-07-2024 ambulatory [facility] Start: 12-07-2024 End: 12-07-2024 ambulatory [facility] Start: 12-06-2024 Non-patient / Non-visit [facility] Work Phone: Start: 12-02-2024 End: 12-02-2024 ambulatory [facility] Start: 11-09-2024 Non-patient / Non-visit [facility] Work Phone: Start: 11-05-2024 Non-patient / Non-visit [facility] Work Phone: Start: 11-02-2024 End: 11-02-2024 Encounter for general adult medical examination without abnormal findings [facility] Start: 11-02-2024 End: 11-02-2024 Patient encounter procedure [facility] Work Phone: Start: 10-28-2024 Patient encounter status [facility] Start: 07-09-2024 End: 07-09-2024 ambulatory [facility] Work Phone: Start: 07-09-2024 End: 07-09-2024 Patient encounter procedure [facility] Work Phone: Start: 05-27-2024 End: 05-27-2024 ambulatory [facility] Work Phone: Start: 05-27-2024 End: 05-27-2024 Patient encounter procedure [facility] Work Phone: Start: 05-17-2024 Non-patient / Non-visit [facility] Work Phone: Start: 05-14-2024 End: 05-14-2024 ambulatory NAYELI COON [facility] Start: 12-09-2023 End: 12-09-2023 ambulatory Fam Vazquez Other [facility] [employer] Other Start: 12-09-2023 Office outpatient vi sit 15 minutes Fam George [facility] Start: 10-22-2023 End: 10-22-2023 ambulatory Fam Vazquez Other [employer] Other Start: 10-22-2023 Telephone encounter Fam Vazquez [facility] Start: 10-21-2023 (WellA) Well Adult Fam Vazquez [facility] Start: 10-21-2023 End: 10-21-2023 ambulatory Fam Vazquez Other [facility] Other Start: 10-21-2023 Encounter for genera l adult medical examination without abnormal findings Fam Vazquez [facility] Start: 03-14-2023 End: 03-15-[address] GALINDO VILLA Facility:[facility] Start: 02-17-2023 End: 02-17-2023 ambulatory Fam Vazquez Other [employer] Other Start: 02-17-2023 Office outpatient vi sit 15 minutes Fam Vazquez [facility] Start: 02-17-2023 Telephone encounter Fam Vazquez [facility] Start: 12-26-[address] GALINDO VILLA Fac ility:[facility] Start: 10-19-2022 Encounter for genera l adult medical examination without abnormal findings DR FAM VAZQUEZ [facility] Start: 10-15-2022 End: 10-16-[address] FAM VAZQUEZ Facility:[facility] Start: 10-15-2022 End: 10-16-2022 Encounter for general adult medical examination without abnormal findings DR FAM VAZQUEZ Facility:[facility] Start: 10-15-2022 Adult health examination Fam Vazquez Other [employer] Other Start: 10-14-2022 End: 10-15-[address] GALINDO VILLA Facility:[facility] Start: 07-30-2022 End: 07-31-2022 ambulatory BILL RICCI Facility:[facility] Start: 03-28-2022 End: 03-29-2022 ambulatory FAM VAZQUEZ Facility:[facility] Start: 03-26-2022 End: 03-27-[address] GALINDO VILLA Facility: Start: 05-28-2021 End: 05-29-2021 ambulatory FAM VAZQUEZ Facility:[facility] Procedures Date Procedure Procedure Detail Performing Clinician Start: 10-15-[address] MITCH LATHAM GEORGE Comment on above: Performed By: #### [facility] #### [facility] [address] [address] [address] Roc Carroll Start: 01-02-2018 Hyperlipidemia screening Fam Vazquez Other Start: 05-24-2016 General examination of patient Fam Vazquez Other Start: 05-24-2016 Screening for malign ant neoplasm of colon Fam Vazquez Other Start: 05-24-2016 Screening for malign ant neoplasm of prostate Fam Vazquez Other Depression screening Vilma Vazquez Other Screening for malign ant neoplasm of prostate Fam Vazquez Other Plan of Treatment Date Care Activity Detail Author Comprehensive metabo lic 2000 panel - Serum or Plasma [facility] enter XR Hip - right 2 Views [facility] Payers Date Payer Category Payer Unknown [id number] 2009 Unknown [id number] 1960 Unknown [id number] [id number] [id number] 1962 Unknown [id number] 2.16.8 [id number] 1962 Unknown [id number] 2.16.84 [id number] 1962 Unknown [id number] 2.16.84 [id number] 1962 Unknown [id number] 2.16.84 [id number] 1962 Unknown [id number] 2.16.84 [id number] 1962 Unknown [id number] 2.16.84 [id number] 1962 Unknown [id number] 2.16.84 [id number] 1959 Private Health Insurance [id number] 1959 Self-pay [id number] Private Health Insurance [id number] Social History Date Type Detail Facility Sex Assigned At [facility] [employer] Other Start: 1960 Sex Assigned At Male F [facility] Tobacco smoking stat [facility] Unknown if ever smoked [facility] Work Phone: Start: 01-14-2025 End: 04-08-2025 Sex Male (finding) [facility] Clinical Notes 02-17-2023 to 04-08-2025 Note Date & Type Note Facility 04-08-2025 Evaluation note Diagnosis Onset Date Resolution Hypertension acute April 08 2:14pm Acute bronchitis due to other specified organisms noneactive April 08, 2025 2:14pm Ascending aortic aneurysm acute May 04, 2025 9:38am Atrial fibrillation acute May 04, 2025 9:38am Cardiomyopathy acute May 04, 2025 9:38am Chronic kidney disease acute 2024 9:38am Hypertension acute May 04 9:38am [facility] Work Phone: [phone]) 642-381703-14-2025 Evaluation note* Diagnosis Onset Date Resolution Status Admit Date Right hip pain acute January 9:07am Cough productive of clear sputum noneactive January 14, 2025 9:07am Impacted cerumen of right ear noneac tive January 14, 2025 9:07am [facility] Work Phone: 1(726) 596-123203-07-2025 NoteUT Cardiology - [facility] Subjective Kishor Graham is a 64 y.o. year old male patient being seen for follow up DCCV on 12/07/2024. 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 BMP 04/14/2018: Cr 1.4, [...] diastolic dysfunction (pseudonormalized LV filling pattern). The right ventricle is moderately enlarged. Normal right ventricular systolic function. Doppler studies suggest mildly elevated right sided pressures. The left atrium is severely enlarged. The right atrium is severely enlarged. Mild dilatation of the ascending aorta. The aortic arc (more content not included)...[facility]02-04-2025 NotePatient: Kishor Graham Procedure Information Date/Time: 12/07/24 1345 Procedure: Cardioversion/defibrillation - Please schedule on 12/07/2024 at 1 PM. Location: [facility] / [facility] (Cath) Providers: Galindo Villa MD Clinical information reviewed: Allergies Meds Physical Exam Airway Mallampati: III TM distance: >3 FB Neck ROM: full Cardiovascular Rhythm: regular Rate: normal Dental Pulmonary Breath sounds clear to auscultation Abdominal Anesthesia Plan ASA 3 other (Conscious sedation.) Anesthetic plan and risks discussed with patient. Use of blood products discussed with patient who consented to blood products. Additional [facility] Note [place] Card[facility] - [facility] Subjective Kishor Graham is a 63 y.o. [...] LV filling pattern). The (more content not included)...[facility]12-31-2024 Evaluation note* Diagnosis Onset Date Resolution Status Admit Date Ascending aortic aneurysm acute November 02, 2024 8:39am Atrial fibrillation acute Decem meri 2023 8:39am Cardiomyopathy acute October 052023 8:39am Chronic kidney disease acute De cember 2023 8:39am Hypertension acute October 8:39am Screening PSA (prostate specific antigen) acute November 02, 2024 8:39am Wellness examination acute Dece mber 2023 8:39am Right hip pain acute January 9:07am Cough productive of clear sputum noneactive January 14, 2025 9:07am Impacted cerumen of right ear noneac tive January 14, 2025 9:07am [facility] Work Phone: 1(369) 787-695507-12-2024 NoteUses cpap nightlyUnSt. Rita's Hospital07-12-2024 NoteHTN stable at home, noted white coat syndrome in office Continue all current medsUnivers[facility]07-12-2024 NoteNYHC II- currently euvolemic without exacerbation Continue GDMT- benzapril, farxiga, beta shane, aldactone and lasix for Diuretic therapy Monitor daily weights, I&O, fluid restriction 1.5-2L/day, renal function and electrolytes-[facility]07-12-2024 NoteDilatation of Aorta on recent TTE 06/2023 was 3.9 cm Will repeat TTE prior to next visit to monitor for any extentionUnSt. Rita's Hospital07-12-2024 [id number]= 3, female, HTN, CHF Remains on eliquis anticoagulation- denied any bleeding tendencies. Continue metoprolol 50 mg bid for rate controlUnSt. Rita's Hospital 05-14-2024 NoteUTP CARDIOLOGY PROGRESS NOTE HPI: Kishor Graham is a 63 [...] Discussed with patient we can refer [facility] or defer to AVN ablation/PPM 05/2021 per [...] ECG 04/20/2018: sinus bradycardia with PVCs in svitlana, QTc 490 ms. BMP 04/14/2018: Cr 1.4, [...] He is seen i (more content not included)...[facility] 05-14-2024 NotePatient here for 6 mo follow up persistent afib, hypertension, CHF, and dilatation of aorta. Denies chest pain, lightheadedness/syncope, and bleeding on Eliquis. Does get intermittent redness in his right eye. PINEDA and LE edema remain unchanged. Review of Systems Eyes: Positive for redness. Cardiovascular: Positive for dyspnea on exertion and leg swelling. All other systems reviewed and are negative.[facility] 12-09-2023 Evaluation note* Encounter Date Diagnosis Assessment Notes Treatment Notes Treatment Clinical Notes Dec, Olecranon bursitis o f left elbow (ICD-10 - M70.22) Protect area and avoid pressure and trauma. It will likely remain slightly swollen and thickened Aspiration would remove fluid but would likely reaccumulate and may increase risk of infection. Dec, Contusion of left elbow, initial encounter (ICD-10 - S50.02XA) Much improved. Bruising has resolved and he has full ROM at the elbow 06 Feb, 2024 Chronic anticoagulation (ICD-10 - Z79.01) Increased bleeding intensity. No additional bleeding complications Dec, Inflamed skin tag (ICD-10 - L91.8) 8 large 5 mm skin tags on both sides of neck. They are irritated, inflamed w/ some bleeding. 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 Feb, CLIVE (obstructive sleep apnea) (ICD-10 - G47.33) This patient is aware of the benefits associated with CLIVE: With continued use, the patient reduces the risk for NC, CVA, HTN, cardiac dysrhythmias and sudden cardiac deaths.The patient is also aware of the association between CLIVE and morning headaches, daytime somnolence, fatigue and obesity, which also has been improved with continued use.The patient is compliant with treatment, wearing the equipment every night for greater than 4 hours.The patient is instructed to continue use of the CPAP for CLIVE treatment. [facility] Other 04-17-2023 Evaluation note* Encounter Date Diagnosis Assessment Notes Treatment Notes Treatment Clinical Notes Feb, Acute non-recurrent maxillary sinusitis (ICD-10 - J01.00) [employer] Other Evaluation noteNo InformationNort Quidsi Other Evaluation note* Diagnosis Onset Date Resolution Status Atrial fibrillation acute Hypertension acute Acute bronchitis due to other specified organisms noneactive [facility] [employer] Work Phone: Evaluation note* Diagnosis Onset Date Resolution Status Atrial fibrillation acute Hypertension acute Acute bronchitis due to other specified organisms noneactive Cardiomyopathy acute Eustachian tube dysfunction acute Acute sinusitis noneactive [facility] [employer] Work Phone: History general Narrative - Reported* [...] History ARTHRSCOPY LEFT KNEE Surgical History CARDIOVERSION 2015 Surgical History COLONOSCOPY 2016 Surgical History ABLATION, ARRHTHMOGE CAROLYN FOCUS, FOR ATRIAL FIBRILLATION, INCARDIAC CATHETERIZATION LABORATORY 2020 Hospitalization History SEE SURGICAL HX [facility] Other History general Narrative - Reported* Type [...] LABORATORY 2020 Hospitalization History SEE SURGICAL HX [facility] Other Reason for referral (narrative)No reason for referral information availableZanesville City Hospital Work Phone: Summary Purpose Family History Relationship Condition Age at Onset Recorded Date/T alia father Heart disease Unknown Diabetes mellitus Unknown Advance Directives Advance Directive Response Recorded Date/ Time Advance Directives Yes May 27 11:10am Chief Complaint and Reason for Visit Chief Complaint Amb Documentation [phone] fever, chills, congestion Reason for Visit Atrial fibrillation Hypertension Acute bronchitis due to other specified organisms Chief Complaint Amb Documentation [phone] fever, chills, congestion [phone] sinus infection Reason for Visit Atrial fibrillation Hypertension Acute bronchitis due to other specified organisms Cardiomyopathy Eustachian tube dysfunction Acute sinusitis Chief Complaint Admit Date Wellness November 02, 2024 8:39am CC Adult Risk Stratification November 1:55pm left ear fullness January 14, 2025 9:0 7am Reason for Visit Admit Date Ascending aortic aneurysm November 02, 2024 8:39am Atrial fibrillation November 02, 2024 8:39am Cardiomyopathy November 02, 2024 8:39am Chronic kidney disease November 02 8:39am Hypertension November 02, 2024 8:39am Screening PSA (prostate specific antigen ) November 02, 2024 8:39am Wellness examination November 02, 2024 8:39am Right hip pain January 14, 2025 9:0 7am Cough productive of clear sputum January 012024 9:07am Impacted cerumen of right ear January 9:07am Chief Complaint Admit Date left ear fullness January 14, 2025 9:0 7am URI April 08, 2025 2:14p m Reason for Visit Admit Date Right hip pain January 14, 2025 9:0 7am Cough productive of clear sputum January 012024 9:07am Impacted cerumen of right ear January 9:07am Chief Complaint Admit Date URI April 08, 2025 2:14p m 6 mo f/u May 04, 2025 9:38a m Reason for Visit Admit Date Hypertension April 08, 2025 2:14p m Acute bronchitis due to other specified organisms April 08, 2025 2:14pm Ascending aortic aneurysm May 04, 2025 9:38am Atrial fibrillation May 04, 2025 9:38a m Cardiomyopathy May 04, 2025 9:38a m Chronic kidney disease May 04, 2025 9: 38am Hypertension May 04, 2025 9:38a m Additional Source Comments (unrecognized sect ion and content) No Status Records FoundNo Status Records FoundNo Status Records FoundNo Status Records Found INFORMATION SOURCE (unrecogn ized section and content) DATE CREATED AUTHOR 10/17/2021 [facility] DATE CREATED AUTHOR AUTHOR'S ORGANIZ ATION 04/10/2022 [facility] DATE CREATED AUTHOR AUTHOR'S ORGANIZ ATION 03/15/2023 [facility] DATE CREATED AUTHOR AUTHOR'S ORGANIZ ATION 01/09/2025 [place] REASON FOR VISIT (unrecogniz ed section and content) Sinuses -[phone] Info ationshenandoah memorial hospitalLab results1 WEEK FOLLOW Care Teams (unrecognized sec tion and content) Team Status: Active Member Role Status Dates Fam Vazquez DO Primary Care Provider Active Team Status: Inactive Member Role Status Dates Fam Vazquez DO Primary Care Provide r, Attending Provider Active Start: November 02, 2024 End: November 02, 2024 Team Status: Active Member Role Status Dates Fam Vazquez DO Primary Care Provide r, Attending Provider Active Start: November 05, 2024 Team Status: Active Member Role Status Dates Fam Vazquez DO Primary Care Provide r, Attending Provider Active Start: November 09, 2024 Team Status: Active Member Role Status Dates Fam Vazquez , DO Primary Care Provider Active Start: December 06, 2024 Galindo Villa MD Attending Provider Active Start: December 06, 2024 Team Status: Inactive Member Role Status Dates Fam Vazquez , DO Primary Care Provide r, Attending Provider Active Start: January 14, 2025 End: January 14, 2025 Team Status: Active Member Role Status Dates Fam Vazquez , DO Primary Care Provider Active Start: May 17, 2024 [place] Attending Provider Active St art: May 17, 2024 Team Status: Inactive Member Role Status Dates Fam Vazquez , DO Primary Care Provide r, Attending Provider Active Start: May 27, 2024 End: May 27, 2024 Team Status: Inactive Member Role Status Dates Fam Vazquez , DO Primary Care Provide r, Attending Provider Active Start: July 09, 2024 End: July 09, 2024 Team Status: Inactive Member Role Status Dates Fam Vazquez , DO Primary Care Provide r, Attending Provider Active Start: April 08, 2025 End: April 08, 2025 Team Status: Inactive Member Role Status Dates Fam Vazquez , DO Primary Care Provider Active Start: April 08, 2025 End: April 08, 2025 Fam Vazquez , DO Attending Provider Active Sta rt: April 08, 2025 End: April 08, 2025 Team Status: Inactive Member Role Status Dates Fam Vazquez , DO Primary Care Provider Active Start: May 04, 2025 End: May 04, 2025 Fam Ball , DO Attending Provider Active Sta rt: May 04, 2025 End: May 04, 2025 Goals (unrecognized section and content) Goals may [...] BE BASED ON THE PRIMARY CLINICAL RECORDS. [facility] [employer] [facility]. provides no warranty or guarantee of the accuracy or completeness of information in this document.
[2025-06-10 11:30] LABS: Anion Gap 12.7; Blood Urea Nitrogen 15.0 mg/dL (7.0-18.0); Calcium 8.8 mg/dL (8.5-10.1); Carbon Dioxide 27.1 mmol/L (21.0-32.0); Chloride 107 mmol/L (98-107); Estimated GFR (African America >60 (>=60 mL/min/1.73m^2); Estimated GFR (Non-African Ame 57 (>=60 mL/min/1.73m^2); Glucose 95 mg/dL (74-106); Potassium 3.8 mmol/L (3.5-5.1); Sodium 143 mmol/L (136-145)
== END 2025-06-10 10:57 | disposition home or self-care (01) ==
LOC: LAB 10:57
PROVIDERS: PCP Internal Medicine; Visit Provider Internal Medicine Interventional Cardiology
DX: E87.6 Hypokalemia (principal)
CPT/HCPCS: 36415; 80048

== ENCOUNTER 2025-06-17 09:49 | Outpatient (OUT) | payer BC, SELFPAY ==
--- OUTSIDE RECORDS SUMMARY | 2025-06-17 09:57 | XMS_ITS | CCD ---
Author Organization [facility] Care Team Providers Care Consulting Senior Practice Director Name Role Phone FAM VAZQUEZ Primary Care Unavailable FMA VAZQUEZ Referring Unavailable DUARTELUIS MIGUEL Admitting Unavailable DUARTELUIS MIGUEL Attending Unavailable ELDA, FAM Primary Care Unavailable FAM VAZQUEZ Referring Unavailable MOUKARBEL, GALINDO Dominguez Admitting Unavailable MOUKARBDAKOTA, GALINDO Dominguez Attending Unavailable Fam Vazquez Unavailable ELDA, DR ETIENNE Admitting Unavailable BALL, DR ETIENNE [...] BILL Admitting Unavailable KEIRY, BILL Attending Unavailable ELDA, DR ETIENNE Primary Care Unavailable KEIRY, BILL Consulting Unavailable NEFCYEVENS Consulting Unavailable MOUKARBEL, DR MEDLEY Admitting Unavailable MOUKARBEL, DR MEDLEY Attending Unavailable BALL, DR ETIENNE Primary Care Unavailable MOUKARBEL, DR MEDLEY Consulting Unavailable Fam Vazquez DO Primary Care Provider Fam Vazquez DO Attending Provider GALINDO VILLA Admitting Unavailable MOUKARBELGALINDO Attending Unavailable MOUKARBEL, GALINDO Referring Unavailable MOUKARBEL, GALINDO Referring Unavailable MOUKARBEL, GALINDO Attending Unavailable MOUKARBEL, GALINDO Attending Unavailable MOUKARBEL, GALINDO Attending Unavailable Medications Current Medications Medication Drug [...] capsule Discontinued 100 MG PO Twice daily 14 May 27, 2024 12:00am November 02, 2024 9:42am Start: 12-02-2023 take 1 capsule by mo [facility] every twelve hours Doxycycline Hyclate 100 [...] tid Active take 1 tablet by tiffanie every twenty-four hours metoprolol tartrate 50 mg oral tablet (12 sources) beta-Adrenergic Shane Start: 05-17-2024 take 1 tablet by mouth twice daily Metoprolol Tartrate 50 mg tablet Active 50 MG PO Twice daily May 17, 2024 12:00am Complies with drug therapy Start: 02-17-2023 [facility] Metoprolol Tartrate 25 MG [...] tid Active take 1 tablet by tiffanie every twenty-four hours Klor-Con M20 20 MEQ [...] Episodic Aortic; peripheral; and visceral artery aneurysms (5 sources) Aneurysm of ascending aorta; Translations: [Ascending aortic aneurysm] 10-28-2024 Chronic Comment on above: Echo: 3.7cm - [...] 10-05-2018 10-28-2024 Chronic Congestive heart failure; nonhypertensive (2 sources) Chronic diastolic (congestive) heart failure; Translations: [Chronic diastolic (congestive) heart failure] Onset: 12-07-2024 Chronic Essential hypertension (20 sources) Essential hypertension; Translations: [Essential (primary) hypertension] Onset: 06-15-2015 Chronic Heart valve disorders (6 sources) 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 valves; Translations: [Mitral valve regurgitation] Onset: 10-19-2022 01-11-2025 Chronic Hyperplasia of prostate (3 sources) Benign prostatic hypertrophy without outflow obstruction; Translations: [Hypertrophy (benign) of prostate without urinary obstruction and other lower urinary tract symptoms [LUTS]] Onset: 01-02-2018 Chronic Hypertension with complications and secondary hypertension (11 sources) Chronic kidney disease due to hypertension; Translations: [Hypertensive chronic kidney disease with stage 1 through stage 4 chronic kidney disease, or unspecified chronic kidney disease] Onset: 10-05-2018 Chronic Other aftercare (4 sources) Long-term current use of anticoagulant; Translations: [Long-term (current) use of anticoagulants] Onset: 02-16-2018 Episodic Other aftercare (1 source) residential (current) use of anticoagulants Episodic Other and unspecified benign neoplasm (2 sources) [...] caused by tuberculosis or sexually transmitted disease) (7 sources) Cardiomyopathy; Translations: [Cardiomyopathy, unspecified] 07-09-2024 Chronic Comment on above: LHC: normal - 06/2016 Echo: LVEF 50-55%, MAYRA, mild RV dilatation w/ normal function, RVSP 29, mod MR, Asc Aorta 3.7cm - 10/2024 Pulmonary heart disease (5 sources) Pulmonary hypertension; Translations: [Pulmonary hypertension, unspecified] Onset: 06-13-2025 01-11-2025 Chronic Comment on above: Group 2 (left [...] sources) Edema; Translations: [Edema] Onset: 06-15-2015 Episodic Residual codes; unclassified (2 sources) Edema, unspecified; Translations: [Edema, unspecified] Onset: 12-07-2024 Episodic Skin and subcutaneous tissue infections (3 [...] Value Interpretation Reference Range Facility Office Visiton 06-13-2025 Follow-up visit [id number] Monica Graham 1960 M Date Provider Department Center 06/13/2025 GALINDO PENA ARON Medrano Family History Problem Relation Age of Onset Stroke Mother Diabetes Father Family Status - Relation Status Age at Mother Father Level of Service:97460 MI OFFICE/OUTPATIENT ESTABLISHED MOD MDM 30 MIN (25) Normal [facility] Office Visiton 01-07-2025 Follow-up visit [id number] Monica Graham 1960 [facility] Provider Department Center 01/07/2025 GALINDO PENA Family History Problem Relation Age of Onset Stroke Mother Diabetes Father Family Status - Relation Status Age at Mother Father Level of Service:22326 MI OFFICE/OUTPATIENT ESTABLISHED MOD MDM 30 MIN Normal [facility] HPon 12-07-2024 HP H&P reviewed. The patient was examined and there are no changes to the H&P. Normal [facility] NURSNOTEon 12-07-2024 BARAK RN educated pt on d/ c instructions. [...] Basophils (Bld) [#/Vol] Automated basophil count 0.0-0.1 [facility] Basophils/100 WBC Auto (Bld) on 12-06-2024 Basophils/100 WBC (Bld) Automated basophil % 0.2-2.0 [facility] Eosinophils/100 WBC Auto (Bl d)on 12-06-2024 Eosinophils/100 WBC (Bld) Automated eosinophil % 0.9-7.0 [facility] Erythrocyte distribution wid th Auto (RBC) [Ratio]on 12-06-2024 Erythrocyte distribution width (RBC) [Ratio] Erythrocyte distribution width [Ratio] by Automated count 11.0-15.0 [facility] Estimated glomerular filtrat ion rate (GFR) non- Americanon 12-06-2024 GFR/1.73 sq M.predicted among non-blacks MDRD (S/P/Bld) [Vol rate/Area] Estimated glomerular filtration rate (GFR) non- Low >=60 mL/min/1.73m 2 [facility] Hematocrit Auto (Bld) [Volum e fraction]on 12-06-2024 Hematocrit (Bld) [Volume fraction] Hematocrit [Volume Fraction] of Blood by Automated count 42.0-54.0 [facility] Hemoglobin [Mass/volume] in Bloodon 12-06-2024 Hemoglobin (Bld) [Mass/Vol] Hemoglobin [Mass/volume] in Blood 14.0-18.0 [facility] Laboratory - Chemistry and C hemistry - challengeon 12-06-2024 Calcium [Mass/Vol] 8.4 mg/dL Low 8.5-10.1 [facility] Chloride [Moles/Vol] 105 mmol/L 98-107 [facility] CO2 [Moles/Vol] 28.5 mmol/L 21.0-32.[address] [facility] Creatinine [Mass/Vol] 1.28 mg/dL 0.70-1.30 [facility] GFR/1.73 sq M.predicted MDRD (S/P/Bld) [Vol rate/Area] mL/min/{1.73_m2} >=60 mL/min/1.73m 2 [facility] Glucose [Mass/Vol] 84 mg/dL 74-106 [facility] Potassium [Moles/Vol] 4.0 mmol/L 3.5-5.1 [facility] Sodium [Moles/Vol] 140 mmol/L 136-145 [facility] Urea nitrogen [Mass/Vol] 16.0 mg/dL 7.0-18.0 [facility] Urea nitrogen/Creatinine [Mass ratio] 12.5 mg/mg [facility] Laboratory - Hematology and Cell countson 12-06-2024 Immature granulocytes/100 WBC (Bld) 0.2 % 0.0-0.5 [facility] Leukocytes [#/volume] correc lala for nucleated erythrocytes in Blood by Automated counon 12-06-2024 WBC corrected for nucl RBC Auto (Bld) [#/Vol] Leukocytes [#/volume] corrected for nucleated erythrocytes in Blood by Automated coun 4.0-11.0 [facility] Lymphocytes Auto (Bld) [#/Vo l]on 12-06-2024 Lymphocytes (Bld) [#/Vol] Lymphocytes [#/volume] in Blood by Automated count 1.2-3.8 [facility] Lymphocytes/100 WBC Auto (Bl d)on 12-06-2024 Lymphocytes/100 WBC (Bld) Lymphocytes/100 leukocytes in Blood by Automated count 20.5-60.0 [facility] MCH Auto (RBC) [Entitic mass ]on 12-06-2024 MCH (RBC) [Entitic mass] MCH [Entitic mass] by Automated count 25.9-34.0 [facility] MCHC Auto (RBC) [Mass/Vol]on 12-06-2024 MCHC (RBC) [Mass/Vol] MCHC [Mass/volume] by Automated count 29.9-35.2 [facility] MCV Auto (RBC) [Entitic vol] on 12-06-2024 MCV (RBC) [Entitic vol] MCV [Entitic volume] by Automated count 80.0-94.0 [facility] Monocytes Auto (Bld) [#/Vol] on 12-06-2024 Monocytes (Bld) [#/Vol] Automated blood monocyte count 0.3-0.8 [facility] Monocytes/100 WBC Auto (Bld) on 12-06-2024 Monocytes/100 WBC (Bld) Automated monocyte % 1.7-12.0 [facility] Neutrophils Auto (Bld) [#/Vo l]on 12-06-2024 Neutrophils (Bld) [#/Vol] Neutrophils [#/volume] in Blood by Automated count 1.4-6.5 [facility] Neutrophils/100 WBC Auto (Bl d)on 12-06-2024 Neutrophils/100 WBC (Bld) Automated neutrophil % 43.0-75.0 [facility] No Panel Informationon 12-06 Eosinophils # (Auto) 0.1 10 3/uL 0.0-0.7 [facility] Immature Granulocyte # (Auto) 0.01 10 3/uL 0.00-0.03 [facility] Platelet mean volume Auto (B ld) [Entitic vol]on 12-06-2024 Platelet mean volume (Bld) [Entitic vol] Platelet mean volume [Entitic volume] in Blood by Automated count 9.5-13.5 [facility] Platelets Auto (Bld) [#/Vol] on 12-06-2024 Platelets (Bld) [#/Vol] Platelets [#/volume] in Blood by Automated count 150-450 [facility] RBC Auto (Bld) [#/Vol]on RBC (Bld) [#/Vol] Erythrocytes [#/volume] in Blood by Automated count 4.70-6.10 [facility] Serum or plasma anion gap de terminationon 12-06-2024 Anion gap [Moles/Vol] Serum or plasma anion gap determination [facility] HPon 12-02-2024 [facility] Cardiology - [facility] Subjective Kishor Nikolai Santoser is a 63 y.o. year old male [facility] Follow-up visit [id number] MarshallMonica jaison Menchaca 1960 M Date Provider Department Center 12/02/2024 GALINDO PENA CARD [facility] Family History Problem Relation Age of Onset Stroke Mother Diabetes Father Family Status - Relation Status Age at Mother Father Level of Service:36850 [place] OFFICE/OUTPATIENT ESTABLISHED HIGH MDM 40 MIN Normal [facility] Basophils Auto (Bld) [#/Vol] on 11-05-2024 Basophils (Bld) [#/Vol] Automated basophil count 0.0-0.1 [facility] Basophils/100 WBC Auto (Bld) on 11-05-2024 Basophils/100 WBC (Bld) Automated basophil % 0.2-2.0 [facility] Cholesterol in LDL Calc [Mas s/Vol]on 11-05-2024 Cholesterol in LDL [Mass/Vol] Cholesterol in LDL [Mass/volume] in Serum or Plasma by calculation [facility] Comment on above: <100 mg/dl [id number] 0-129 mg/dl NEAR OR ABOVE [id number] mg/dl BORDERLINE [id number] mg/dl HIGH>190 mg/dl VERY HIGH Cholesterol in VLDL Calc [Ma ss/Vol]on 11-05-2024 Cholesterol in VLDL [Mass/Vol] Cholesterol in VLDL [Mass/volume] in Serum or Plasma by calculation [facility] Eosinophils/100 WBC Auto (Bl d)on 11-05-2024 Eosinophils/100 WBC (Bld) Automated eosinophil % 0.9-7.0 [facility] Erythrocyte distribution wid th Auto (RBC) [Ratio]on 11-05-2024 Erythrocyte distribution width (RBC) [Ratio] Erythrocyte distribution width [Ratio] by Automated count 11.0-15.0 [facility] Estimated glomerular filtrat ion rate (GFR) non- Americanon 11-05-2024 GFR/1.73 sq M.predicted among non-blacks MDRD (S/P/Bld) [Vol rate/Area] Estimated glomerular filtration rate (GFR) non- >=60 mL/min/1.73m 2 [facility] Globulin Calc (S) [Mass/Vol] on 11-05-2024 Globulin (S) [Mass/Vol] Serum globulin measurement by calculation (mass/volume) [facility] Hematocrit Auto (Bld) [Volum e fraction]on 11-05-2024 Hematocrit (Bld) [Volume fraction] Hematocrit [Volume Fraction] of Blood by Automated count 42.0-54.0 [facility] Hemoglobin [Mass/volume] in Bloodon 11-05-2024 Hemoglobin (Bld) [Mass/Vol] Hemoglobin [Mass/volume] in Blood 14.0-18.0 [facility] Laboratory - Chemistry and C hemistry - challengeon 11-05-2024 Albumin [Mass/Vol] 3.5 g/dL 3.4-5.0 [facility] ALP [Catalytic activity/Vol] 84 U/L 46-116 [facility] ALT [Catalytic activity/Vol] 26 U/L 16-63 [facility] AST [Catalytic activity/Vol] 19 U/L 15-37 [facility] Bilirubin [Mass/Vol] 1.0 mg/dL 0.2-1.0 [facility] Calcium [Mass/Vol] 8.9 mg/dL 8.5-10.1 [facility] Chloride [Moles/Vol] 108 mmol/L High 98-107 [facility] Cholesterol [Mass/Vol] 163 mg/dL <=200 [facility] Cholesterol in HDL [Mass/Vol] 44 mg/dL 40-60 [facility] Comment on above: > or =60 mg/dl - LOW CARDIOVASCULAR RISK<40 mg/dl - HIGH CARDIOVASCULAR RISK CO2 [Moles/Vol] 29.0 mmol/L 21.0-32.[address] [facility] Creatinine [Mass/Vol] 1.18 mg/dL 0.70-1.30 [facility] GFR/1.73 sq M.predicted MDRD (S/P/Bld) [Vol rate/Area] mL/min/{1.73_m2} >=60 mL/min/1.73m 2 [facility] Glucose [Mass/Vol] 99 mg/dL 74-106 [facility] Potassium [Moles/Vol] 3.9 mmol/L 3.5-5.1 [facility] Protein [Mass/Vol] 6.8 g/dL 6.4-8.2 [facility] Sodium [Moles/Vol] 142 mmol/L 136-145 [facility] Triglyceride [Mass/Vol] 61 mg/dL <=150 [facility] Urea nitrogen [Mass/Vol] 18.0 mg/dL 7.0-18.0 [facility] Urea nitrogen/Creatinine [Mass ratio] 15.3 mg/mg [facility] Laboratory - Hematology and Cell countson 11-05-2024 Immature granulocytes/100 WBC (Bld) 0.2 % 0.0-0.5 [facility] Leukocytes [#/volume] correc lala for nucleated erythrocytes in Blood by Automated counon 11-05-2024 WBC corrected for nucl RBC Auto (Bld) [#/Vol] Leukocytes [#/volume] corrected for nucleated erythrocytes in Blood by Automated coun 4.0-11.0 [facility] Lymphocytes Auto (Bld) [#/Vo l]on 11-05-2024 Lymphocytes (Bld) [#/Vol] Lymphocytes [#/volume] in Blood by Automated count 1.2-3.8 [facility] Lymphocytes/100 WBC Auto (Bl d)on 11-05-2024 Lymphocytes/100 WBC (Bld) Lymphocytes/100 leukocytes in Blood by Automated count 20.5-60.0 [facility] MCH Auto (RBC) [Entitic mass ]on 11-05-2024 MCH (RBC) [Entitic mass] MCH [Entitic mass] by Automated count 25.9-34.0 [facility] MCHC Auto (RBC) [Mass/Vol]on 11-05-2024 MCHC (RBC) [Mass/Vol] MCHC [Mass/volume] by Automated count 29.9-35.2 [facility] MCV Auto (RBC) [Entitic vol] on 11-05-2024 MCV (RBC) [Entitic vol] MCV [Entitic volume] by Automated count 80.0-94.0 [facility] Monocytes Auto (Bld) [#/Vol] on 11-05-2024 Monocytes (Bld) [#/Vol] Automated blood monocyte count 0.3-0.8 [facility] Monocytes/100 WBC Auto (Bld) on 11-05-2024 Monocytes/100 WBC (Bld) Automated monocyte % 1.7-12.0 [facility] Neutrophils Auto (Bld) [#/Vo l]on 11-05-2024 Neutrophils (Bld) [#/Vol] Neutrophils [#/volume] in Blood by Automated count 1.4-6.5 [facility] Neutrophils/100 WBC Auto (Bl d)on 11-05-2024 Neutrophils/100 WBC (Bld) Automated neutrophil % 43.0-75.0 [facility] No Panel Informationon 11-05 Eosinophils # (Auto) 0.1 10 3/uL 0.0-0.7 [facility] Immature Granulocyte # (Auto) 0.01 10 3/uL 0.00-0.03 [facility] Prostate Specific Antigen Screen 0.24 ng/mL <=4.00 [facility] Platelet mean volume Auto (B ld) [Entitic vol]on 11-05-2024 Platelet mean volume (Bld) [Entitic vol] Platelet mean volume [Entitic volume] in Blood by Automated count 9.5-13.5 [facility] Platelets Auto (Bld) [#/Vol] on 11-05-2024 Platelets (Bld) [#/Vol] Platelets [#/volume] in Blood by Automated count 150-450 [facility] RBC Auto (Bld) [#/Vol]on RBC (Bld) [#/Vol] Erythrocytes [#/volume] in Blood by Automated count 4.70-6.10 [facility] Serum or plasma albumin/glob ulin mass ratioon 11-05-2024 Albumin/Globulin [Mass ratio] Serum or plasma albumin/globulin mass ratio [facility] Serum or plasma anion gap de terminationon 11-05-2024 Anion gap [Moles/Vol] Serum or plasma anion gap determination [facility] Serum or plasma total choles terol/high density lipoprotein (HDL) cholesterol mass cassie 11-05-2024 Cholesterol.total/Ch olesterol in HDL [Mass ratio] Serum or plasma total cholesterol/high density lipoprotein (HDL) cholesterol mass rat [facility] Comment on above: 3.3 - 4.4 LOW RISK4. 4 - 7.1 AVERAGE RISK7.1 - 11.0 MODERATE RISK>11.0 HIGH RISK 36on 11-04-2024 36 Regarding echo performed on 10/20/2024: REINA Tovar, YOLIS Let pt know everything on echo remains stable, no acute concerns. Mitral valve with mod regurg and Aorta without widening- remains stable. Patient made aware. He is scheduled to see Dr. Villa on 12/02/2024. Normal [facility] Orders Onlyon 11-02-2024 Orders Only [id number] Moniac Graham 1960 M Date Provider Department Center 11/02/2024 ADALID STRANGE CARD [facility] Family History Problem Relation Age of Onset Stroke Mother Diabetes Father Family Status - Relation Status Age at Mother Father [facility] PROF CHEM 8 (BAS METB)on Anion gap [Moles/Vol] 11.2 mmol/L Normal [facility] Comment on above: Performed By: #### B MP #### [facility] [address] [address] [address] Roc Carroll Calcium [Mass/Vol] 8.4 mg/dL Critically low 8.5-10.1 [facility] Comment on above: Performed By: #### B MP #### [facility] [address] [address] [address] Roc Carroll Chloride [Moles/Vol] 106 mmol/L Normal 98-107 [facility] Comment on above: Performed By: #### B MP #### [facility] [address] [address] [address] Roc Carroll CO2 [Moles/Vol] 28.3 mmol/L Normal 21.0-32.0 [facility] Comment on above: Performed By: #### B MP #### [facility] [address] [address] [address] Roc Carroll Creatinine [Mass/Vol] 1.36 mg/dL Critically high 0.70-1.30 [facility] Comment on above: Performed By: #### B MP #### [facility] [address] [address] [address] Roc Carroll EGFR-AF RUSSIAN >60 Normal >=60 [facility] Comment on above: Performed By: #### B MP #### [facility] [address] [address] [address] Roc Carroll EGFR-NON AF RUSSIAN 53 mL/min/1.73m2 Critically low >=60 [facility] Comment on above: Performed By: #### B MP #### [facility] [address] [address] [address] Roc Carroll Glucose [Mass/Vol] 99 mg/dL Normal 74-106 [facility] Comment on above: Performed By: #### B MP #### [facility] [address] [address] [address] Roc Carroll Potassium [Moles/Vol] 3.5 mmol/L Normal 3.5-5.1 [facility] Comment on above: Performed By: #### B MP #### [facility] [address] [address] [address] Roc Carroll Sodium [Moles/Vol] 142 mmol/L Normal 136-145 [facility] Comment on above: Performed By: #### B MP #### [facility] [address] [address] [address] Roc Carroll Urea nitrogen [Mass/Vol] 13.0 mg/dL Normal 7.0-18.0 [facility] Comment on above: Performed By: #### B MP #### [facility] [address] [address] [address] Roc Carroll Urea nitrogen/Creatinine [Mass ratio] 9.6 mg/mg Normal [facility] Comment on above: Performed By: #### B MP #### [facility] [address] [address] [address] Roc Carroll PROF CHEM 8 (BAS METB)on Anion gap [Moles/Vol] 10.3 mmol/L Normal [facility] Comment on above: Performed By: #### B MP #### [facility] [address] [address] [address] Roc Carroll Calcium [Mass/Vol] 8.8 mg/dL Normal 8.5-10.1 [facility] Comment on above: Performed By: #### B MP #### [facility] [address] [address] [address] Roc Carroll Chloride [Moles/Vol] 103 mmol/L Normal 98-107 [facility] Comment on above: Performed By: #### B MP #### [facility] [address] [address] [address] Roc Carroll CO2 [Moles/Vol] 30.4 mmol/L Normal 21.0-32.0 [facility] Comment on above: Performed By: #### B MP #### [facility] [address] [address] [address] Roc Carroll Creatinine [Mass/Vol] 1.31 mg/dL Critically high 0.70-1.30 [facility] Comment on above: Performed By: #### B MP #### [facility] [address] [address] [address] Roc Carroll EGFR-AF RUSSIAN >60 Normal >=60 [facility] Comment on above: Performed By: #### B MP #### [facility] [address] [address] [address] Roc Carroll EGFR-NON AF RUSSIAN 56 mL/min/1.73m2 Critically low >=60 [facility] Comment on above: Performed By: #### B MP #### [facility] [address] [address] [address] Roc Carroll Glucose [Mass/Vol] 91 mg/dL Normal 74-106 [facility] Comment on above: Performed By: #### B MP #### [facility] [address] [address] [address] Rco Carroll Potassium [Moles/Vol] 3.7 mmol/L Normal 3.5-5.1 [facility] Comment on above: Performed By: #### B MP #### [facility] [address] [place], [place] [address] Dr. Roc Carroll Sodium [Moles/Vol] 140 mmol/L Normal 136-145 [facility] Comment on above: Performed By: #### B MP #### [facility] [address] [place], [place] [address] Dr. Roc Carroll Urea nitrogen [Mass/Vol] 17.0 mg/dL Normal 7.0-18.0 [facility] Comment on above: Performed By: #### B MP #### [facility] [address] [address] [address] Roc Carroll Urea nitrogen/Creatinine [Mass ratio] 13.0 mg/mg Normal [facility] Comment on above: Performed By: #### B MP #### [facility] [address] [address] [address] Roc Carroll ECHOCARDIO M/2D COMPLETEon 1 12-15-2021 ECHOCARDIO M/2D COMPLETE Patient: KISHOR GRAHAM Exam Date: 10/14/2022 : 1960 Gender:M Ordering : DR GALINDO VILLA M.D. Admission #: [id number] Family : Order #: [id number] CLICK HERE TO VIEW EXAM ECHOCARDIOGRAM REPORT [...] (Peak Brad): 2.42 cm2, 2.42 cm2 Deceleration [place]: 1.90 m/s2 Pressure Half-Time: 778.15 ms Peak [...] Villa M.D. on 10/15/2022 at 18:[address] [facility] HEMOGLOBINon 10-14-2022 Hemoglobin (Bld) [Mass/Vol] 14.7 g/dL Normal 14.0-18.0 [facility] Comment on above: Performed By: #### H GB #### [facility] [address] [address] [address] Roc Carroll LIPID PROFILEon 07-30-2022 CHOL-HDL RATIO NORM SEE BELOW Normal [facility] Comment on above: Result Comment: 3.3 - 4.4 LOW RISK 4.4 - 7.1 AVERAGE RISK 7.1 - 11.0 MODERATE RISK >11.0 HIGH RISK Performed By: #### L IPID, TSH, LIVER #### [facility] [address] [place], [place] [address] Dr. Roc Carroll Cholesterol [Mass/Vol] 174 mg/dL Normal <=200 [facility] Comment on above: Performed By: #### L IPID, TSH, LIVER #### [facility] [address] [place], [place] [address] Dr. Roc Carroll Cholesterol in HDL [Mass/Vol] 43 mg/dL Normal 40-60 [facility] Comment on above: Performed By: #### L IPID, TSH, LIVER #### [facility] [address] [place], [place] [address] Dr. Roc Carroll Cholesterol in LDL [Mass/Vol] 117.2 mg/dL Normal [facility] Comment on above: Performed By: #### L IPID, TSH, LIVER #### [facility] [address] [place], [place] [address] Dr. Roc Carroll Cholesterol.total/Ch olesterol in HDL [Mass ratio] 4.0 {ratio} Normal [facility] Comment on above: Performed By: #### L IPID, TSH, LIVER #### [facility] [address] [place], [place] [address] Dr. Roc Carroll HDL NORMAL > or = 60 mg/dl - LO W CARDIOVASCULAR RISK <40 mg/dl - HIGH CARDIOVASCULAR RISK Normal [facility] Comment on above: Performed By: #### L IPID, TSH, LIVER #### [facility] [address] [place] [address] [address] Roc Carroll LDL CALC NORMAL SEE BELOW Normal [facility] Comment on above: Result Comment: <100 mg/dl OPTIMAL 100 - 129 mg/dl NEAR OR ABOVE OPTIMAL 130 - 159 mg/dl BORDERLINE HIGH 160 - 189 mg/dl HIGH >190 mg/dl VERY HIGH Performed By: #### L IPID, TSH, LIVER #### [facility] [address] [place] [address] [address] Roc Carroll Triglyceride [Mass/Vol] 69 mg/dL Normal <=150 [facility] Comment on above: Performed By: #### L IPID, TSH, LIVER #### [facility] [address] [place] [address] [address] Roc Carroll VLDL CALC 13.8 mg/dL Normal [facility] Comment on above: Performed By: #### L IPID, TSH, LIVER #### [facility] [address] [place] [address] [address] Roc Carroll LIVER PROFILEon 07-30-2022 Albumin [Mass/Vol] 3.8 g/dL Normal 3.4-5.0 [facility] Comment on above: Performed By: #### L IPID, TSH, LIVER #### [facility] [address] [place] [address] [address] Roc Carroll Albumin/Globulin [Mass ratio] 1.2 {ratio} Normal [facility] Comment on above: Performed By: #### L IPID, TSH, LIVER #### [facility] [address] [place] [address] [address] Roc Carroll ALP [Catalytic activity/Vol] 63 U/L Normal 46-116 [facility] Comment on above: Performed By: #### L IPID, TSH, LIVER #### [facility] [address] [place] [address] [address] Roc Carroll ALT [Catalytic activity/Vol] 25 U/L Normal 16-63 [facility] Comment on above: Performed By: #### L IPID, TSH, LIVER #### [facility] [address] [place] [address] Dr. Roc Carroll AST [Catalytic activity/Vol] 16 U/L Normal 15-37 [facility] Comment on above: Performed By: #### L IPID, TSH, LIVER #### [facility] [address] [place] [address] Dr. Roc Carroll BILI, CONJUGATED 0.2 mg/dL Normal 0.0-0.2 [facility] Comment on above: Performed By: #### L IPID, TSH, LIVER #### [facility] [address] [place] [address] Dr. Roc Carroll Bilirubin [Mass/Vol] 0.9 mg/dL Normal 0.2-1.0 [facility] Comment on above: Performed By: #### L IPID, TSH, LIVER #### [facility] [address] [place] [address] Dr. Roc Carroll Globulin (S) [Mass/Vol] 3.2 g/dL Normal [facility] Comment on above: Performed By: #### L IPID, TSH, LIVER #### [facility] [address] [place] [address] Dr. Roc Carroll Protein [Mass/Vol] 7.0 g/dL Normal 6.4-8.2 [facility] Comment on above: Performed By: #### L IPID, TSH, LIVER #### [facility] [address] [place] [address] Dr. Roc Carroll TSHon 07-30-2022 TSH 3.681 uIU/mL Normal 0.358-3.740 [facility] Comment on above: Performed By: #### L IPID, TSH, LIVER #### [facility] [address] [place] [address] Dr. Roc Carroll XR CHEST 2 Von [...] EVENS DAIGLE Date: 2022-07-30 17:14 Normal [facility] BASIC METABOLIC PANELon 05- Calcium [Mass/Vol] 9.1 mg/dL Normal 8.6-10.3 [facility] Comment on above: Performed By: #### 0 0071 #### [facility] [address] Chloride [Moles/Vol] 107 mmol/L Normal 98-107 [facility] Comment on above: Performed By: #### 0 0071 #### [facility] [address] [place] [address], [facility] CO2 [Moles/Vol] 29 mmol/L Normal 21-31 [facility] Comment on above: Performed By: #### 0 0071 #### [facility] [address] Creatinine [Mass/Vol] 1.40 mg/dL High 0.70-1.30 [facility] Comment on above: Performed By: #### 0 0071 #### [facility] [address] [place] [address], [facility] eGFR- non- 52 ml/min/1.73sq m Abnormal >60 [facility] Comment on above: Performed By: #### 0 0071 #### [facility] [address] [place] [address], [facility] GFR/1.73 sq M.predicted among blacks MDRD (S/P/Bld) [Vol rate/Area] mL/min/{1.73_m2} Normal >60 [facility] Comment on above: Performed By: #### 0 0071 #### [facility] [address] [place] [address], [facility] Glucose [Mass/Vol] 100 mg/dL Normal 70-100 [facility] Comment on above: Performed By: #### 0 0071 #### [facility] [address] [place] [address], [facility] Potassium [Moles/Vol] 3.9 mmol/L Normal 3.5-5.1 [facility] Comment on above: Performed By: #### 0 0071 #### [facility] [address] [place] [address], [facility] Sodium [Moles/Vol] 142 mmol/L Normal 136-145 [facility] Comment on above: Performed By: #### 0 0071 #### [facility] [address] [place] [id number], [facility] Urea nitrogen [Mass/Vol] 21 mg/dL Normal 7-25 [facility] Comment on above: Performed By: #### 0 0071 #### [facility] [address] [facility] [place] [address], [facility] CBC COMPLETE BLOOD COUNTon 0 03-28-2022 Erythrocyte distribution width (RBC) [Ratio] 13.9 % Normal 11.5-15.0 [facility] Comment on above: Performed By: #### 5 [id number] #### [facility] [address] [place] [address], [facility] Hematocrit (Bld) [Volume fraction] 41.1 % Normal 39.0-50.0 [facility] Comment on above: Performed By: #### 5 [id number] #### [facility] [address] [place] [address], [facility] Hemoglobin (Bld) [Mass/Vol] 13.7 g/dL Normal 13.0-17.0 [facility] Comment on above: Performed By: #### 5 0608 #### [facility] [address] [facility] [place] [address], [facility] MCH (RBC) [Entitic mass] 28.7 pg Normal 27.0-33.0 [facility] Comment on above: Performed By: #### 5 [id number] #### [facility] [address] [facility]. [address] MCHC (RBC) [Mass/Vol] 33.3 g/dL Normal 32.0-35.0 [facility] Comment on above: Performed By: #### 5 0608 #### [facility] [address] [facility] [place] [address], [facility] MCV (RBC) [Entitic vol] 86.2 fL Normal 82.0-98.0 [facility] Comment on above: Performed By: #### 5 0608 #### [facility] [address] Nucleated RBC/100 WBC (Bld) [Ratio] 0 % Normal 0-0 [facility] Comment on above: Performed By: #### 5 [id number] #### [facility] [address] [facility] [place] [address], [facility] PLAT CNT 186 10*3/uL Normal 150-400 [facility] Comment on above: Performed By: #### 5 0608 #### [facility] [address] [facility] [place] [address], [facility] RBC (Bld) [#/Vol] 4.77 10*6/uL Normal 4.20-5.[address] [facility] Comment on above: Performed By: #### 5 0608 #### [facility] [address] [place] [address], [facility] WBC (Bld) [#/Vol] 6.15 10*3/uL Normal 4.00-10.[address] [facility] Comment on above: Performed By: #### 5 [id number] #### [facility] [address] [facility]. [address] Cardiovascular Lab Reporton 03-28-2022 Cardiovascular Lab Report [facility] Patient Name: Kishor [facility] MR #: [id number] Physician: Galindo Cunningham M.D. Medicine Service Date: 03/28/2022 Division of Birthdate: 1960 Cardiology Room #: Adult Cardiovascular Services [facility] [address] [facility]. [place] [address] Cardiovascular Laboratory Report INDICATION: The patient is [...] signed informed consent. He was brought to labeler in a fasting state. He has been [...] Villa M.D. Date Trans: 03/28/2022 10:15 A/wilma [id number] cc: Fam Vazquez D.O. [address] [place] [address] [facility] [id number] Normal [facility]on 03-04 SARS-CoV-2 (COVID-19) RNA ALIDA+probe Ql (Unsp spec) Not detected Normal NOT DETECTED [facility] Comment on above: Result Comment: This test is not yet approved or cleared by the [place] FDA. When there are no FDA-approved or cleared tests available, and other criteria are met, FDA can make tests available under an emergency access mechanism called an Emergency Use Authorization (EUA). The EUA for this test is supported by the Quality Assurance Qa Lab Analyst of Health and Human Service's (HHS's) declaration [...] consistent with SARS-CoV-2. Performed By: #### C [facility] #### [facility] [address] [place] [address] [address] Roc Carroll Patient Letter FTon 2020 Patient Letter [facility] October 16, 2021 KISHOR GRAHAM III [address] [place] [id number] KISHOR GRAHAM III 1960 Dear Kishor, This is a SECOND ATTEMPT to remind you that you are due for an appointment with [facility]. Please contact our office at [phone] to schedule an appointment at your earliest convenience. Thank you, [facility] Reminders - From: Aleena Farnsworth To: [facility] - Reminders/Recalls; Sent: 07/04/2021 13:52:31 EDT Show up: 09/03/2021 13:52:00 EDT Subject: Ambulatory Reminder Due Date/Time: 10/30/2021 13:52:00 EST Reminder/Recall 5 year colon recall 10/30/2021 salam first recall letter second recall letter Normal [facility] Patient Letter FTon 2020 Patient Letter [facility] September 03, 2021 KISHOR GRAHAM III [address] [place] [address] KISHOR GRAHAM III 1960 Dear Kishor, This is a reminder that you are due for an appointment with [facility]. Please contact our office at [phone] to schedule an appointment at your earliest convenience. Thank you, [facility] Normal [facility] Cardiovascular Lab Reporton 05-31-2021 Cardiovascular Lab Report [facility] Patient Name: [facility] W MR #: [id number] Department of Physician: Luis Miguel Trivedi MD Medicine Service Date: 05/28/2021 Division of Birthdate: 1960 Cardiology Room #: Adult Cardiovascular Services [address] [place] [address] Cardiovascular Laboratory Report DIRECT CARDIOVERSION PROCEDURE NOTE [...] Trivedi MD Date Trans: 05/31/2021 03:39 P/wilma [id number] cc: Fam Vazquez D.O. [address] [place] [id number] [facility] Vital Signs Date Time Vital Sign Value Performing Clinician Facility 05-04-2025 09:44-0400 Body height 177.8 cm Fam Microstim DO Work Phone: [facility] 05-04-2025 09:44-0400 Body mass index (BMI) [Ratio] 44.6 kg/m2 Consano DO Work Phone: [facility] 05-04-2025 09:44-0400 Body weight 141.12 kg Fam Microstim DO Work Phone: [facility] 05-04-2025 09:44-0400 Diastolic blood pressure 72 mm[Hg] Fam Microstim DO Work Phone: [facility] 05-04-2025 09:44-0400 Heart rate 62 /min Fam Microstim DO Work Phone: [facility] 05-04-2025 09:44-0400 Respiratory rate 12 /min Urlist Work Phone: [facility] 05-04-2025 09:44-0400 Systolic blood pressure 119 mm[Hg] Fam Ball DO Work Phone: [facility] 04-08-2025 14:22-0400 Body height 177.8 cm [facility] [place] [facility] 04-08-2025 14:22-0400 Body mass index (BMI) [Ratio] 44.6 kg/m2 [facility] 04-08-2025 14:22-0400 Body weight 141.18 kg [facility] [place] [facility] 04-08-2025 14:22-0400 Diastolic blood pressure 82 mm[Hg] [facility] 04-08-2025 14:22-0400 Heart rate 73 /min [facility] [place] [facility] 04-08-2025 14:22-0400 Respiratory rate 12 /min [facility] 04-08-2025 14:22-0400 Systolic blood pressure 151 mm[Hg] [facility] 01-14-2025 09:29-0400 Body height 177.8 cm [facility] [place] [facility] 01-14-2025 09:29-0400 Body mass index (BMI) [Ratio] 44.4 kg/m2 [facility] 01-14-2025 09:29-0400 Body weight 140.33 kg [facility] [place] [facility] 01-14-2025 09:29-0400 Diastolic blood pressure 77 mm[Hg] [facility] 01-14-2025 09:29-0400 Heart rate 66 /min [facility] [place] [facility] 01-14-2025 09:29-0400 Respiratory rate 12 /min [facility] 01-14-2025 09:29-0400 Systolic blood pressure 130 mm[Hg] [facility] 11-02-2024 08:45-0500 Body height 177.8 cm [facility] [place] [facility] 11-02-2024 08:45-0500 Body mass index (BMI) [Ratio] 42.6 kg/m2 [facility] 11-02-2024 08:45-0500 Body weight 134.71 kg [facility] [place] [facility] 11-02-2024 08:45-0500 Diastolic blood pressure 89 mm[Hg] [facility] 11-02-2024 08:45-0500 Heart rate 56 /min [facility] [place] [facility] 11-02-2024 08:45-0500 Systolic blood pressure 139 mm[Hg] [facility] 12-09-2023 11:00-0500 Body height 177.8 cm Fam Ball Other [employer] Other 12-09-2023 11:00-0500 Body mass index (BMI) [Ratio] 44.22 kg/m2 Fam Ball Other [employer] Other 12-09-2023 11:00-0500 Body weight 139.8 kg Fam Ball Other [employer] Other 12-09-2023 11:00-0500 Diastolic blood pressure 89 mm[Hg] Fam Ball Other [employer] Other 12-09-2023 11:00-0500 Respiratory rate 12 /min Fam Ball Other [employer] Other 12-09-2023 11:00-0500 Systolic blood pressure 124 mm[Hg] Fam Ball Other [employer] Other 10-21-2023 14:30-0500 Body height 177.8 cm Fam Ball Other [employer] Other 10-21-2023 14:30-0500 Body mass index (BMI) [Ratio] 44.85 kg/m2 Fam Ball Other [employer] Other 10-21-2023 14:30-0500 Body weight 141.8 kg Fam Ball Other [employer] Other 10-21-2023 14:30-0500 Diastolic blood pressure 98 mm[Hg] Fam Ball Other [employer] Other 10-21-2023 14:30-0500 Respiratory rate 12 /min Fam Vazquez Other [facility] [employer] Other 10-21-2023 14:30-0500 Systolic blood pressure 151 mm[Hg] Fam Vazquez Other [facility] [employer] Other Encounters Encounter Date Encounter Type Care Provider Facility Start: 06-13-2025 End: 06-14-2025 ambulatory [facility] Start: 05-04-2025 End: 05-04-2025 ambulatory Fam Vazquez DO Work Phone: [facility] Work Phone: Start: 05-04-2025 End: 05-04-2025 Patient encounter procedure Fam Vazquez DO -[facility] Work Phone: Start: 04-08-2025 End: 04-08-[address] [facility] Work Phone: Start: 04-08-2025 End: 04-08-2025 Patient encounter procedure [facility] Work Phone: Start: 01-14-2025 End: 01-14-[address] [facility] Work Phone: Start: 01-14-2025 End: 01-14-2025 Patient encounter procedure [facility] Work Phone: Start: 01-07-2025 End: 01-07-2025 ambulatory [facility] Start: 12-07-2024 ambulatory [facility] Start: 12-07-2024 End: 12-07-2024 ambulatory [facility] Start: 12-06-2024 Non-patient / Non-visit [facility] [employer] Work Phone: Start: 12-02-2024 End: 01-30-2025 ambulatory [facility] Start: 11-09-2024 Non-patient / Non-visit [facility] Work Phone: Start: 11-05-2024 Non-patient / Non-visit [facility] [employer] Work Phone: Start: 11-02-2024 End: 11-02-2024 Encounter for general adult medical examination without abnormal findings [facility] Start: 11-02-2024 End: 11-02-2024 Patient encounter procedure [facility] Work Phone: Start: 10-28-2024 Patient encounter status [facility] Start: 07-09-2024 End: 07-09-[address] [facility] Work Phone: Start: 07-09-2024 End: 07-09-2024 Patient [facility] Work Phone: Start: 05-27-2024 End: 05-27-[address] [facility] Work Phone: Start: 05-27-2024 End: 05-27-2024 Patient encounter procedure [facility] Work Phone: Start: 05-17-2024 Non-patient / Non-visit [facility] Work Phone: Start: 12-09-2023 End: 12-09-2023 ambulatory Fam Vazquez Other [employer] Other Start: 12-09-2023 Office outpatient vi sit 15 minutes Fam Vazquez [facility] Start: 10-22-2023 End: 10-22-2023 ambulatory Fam Vazquez Other [employer] Other Start: 10-22-2023 Telephone encounter Fam Vazquez [facility] Start: 10-21-2023 (WellA) Well Adult Fam Vazquez [facility] Start: 10-21-2023 End: 10-21-2023 ambulatory Fam Vazquez Other [employer] Other Start: 10-21-2023 Encounter for genera l adult medical examination without abnormal findings Fma Vazquez [facility] Start: 03-14-2023 End: 03-15-[address] GALINDO VILLA Facility:[facility] Start: 02-17-2023 End: 02-17-2023 ambulatory Fam Vazquez Other [employer] Other Start: 02-17-2023 Office outpatient vi sit [address] [facility] Start: 02-17-2023 Telephone encounter Fam Vazquez [facility] Start: 12-26-[address] GALINDO VILLA Fac ility:[facility] Start: 10-19-2022 Encounter for genera l adult medical examination without abnormal findings DR FAM VAZQUEZ [facility] Start: 10-15-2022 End: 10-16-[address] FAM VAZQUEZ Facility:[facility] Start: 10-15-2022 End: 10-16-2022 Encounter for general adult medical examination without abnormal findings DR FAM VAZQUEZ Facility:[facility] Start: 10-15-2022 Adult health examination Fam Vazquez Other [employer] Other Start: 10-14-2022 End: 10-15-[address] GALINDO VILLA Facility:[facility] Start: 07-30-2022 End: 07-31-2022 ambulatory BILL RICCI Facility:[facility] Start: 03-28-2022 End: 03-29-2022 ambulatory FAM VAZQUEZ Facility:[facility] Start: 03-26-2022 End: 03-27-[address] GALINDO VILLA Facility:[facility] Start: 05-28-2021 End: 05-29-2021 ambulatory FAM VAZQUEZ Facility:[facility] Procedures Date Procedure Procedure Detail Performing Clinician Start: 10-15-[address] MITCH VAZQUEZ Comment on above: Performed By: #### P [facility] #### [facility] [address] [place] [address] Dr. Roc Carroll Start: 01-02-2018 Hyperlipidemia screening [...] Care Activity Detail Author Comprehensive metabo lic 1999 panel - Serum or Plasma [facility] enter XR Hip - right 2 Views [facility] Payers Date Payer Category Payer Unknown [id number] 2009 Unknown [id number] 1960 Unknown [id number] 2.16.8 [id number] 1960 Unknown [id number] 2.16.8 [id number] 1960 Unknown [id number] 2.16.84 [id number] 1960 Unknown [id number] 2.16.84 [id number] 1960 Unknown [id number] 2.16.84 [id number] 1960 Unknown [id number] 2.16.84 [id number] 1960 Unknown [id number] 2.16.84 [id number] 1960 Unknown [id number] 2.16.84 [id number] 1957 Private Health Insurance [id number] 1957 Self-pay [id number] Private Health Insurance [id number] Social History Date Type Detail Facility Sex Assigned At [employer] Other Start: 1960 Sex Assigned At Male [facility] Work Phone: Start: 01-14-2025 End: 04-08-2025 Sex Male (finding) [facility] Clinical Notes 02-17-2023 to 06-13-2025 Note Date & Type Note Facility 06-13-2025 Note [place] [facility] Subjective Kishor Graham is a 64 y.o. year old male patient being seen for a 6 month follow up. Patient states he is going on a trip and has had some swelling in his legs and had had an increase in fatigue, PINEDA. Patient Active Problem List Diagnosis Paroxysmal atrial [...] Use Topics Alcohol use: Yes Comment: occassional Drug use: Never HPI Kishor is a 64-year-old man who [...] suggest mildly elevated right sided pressures. The le (more content not included)... [facility] 04-08-2025 Evaluation note Diagnosis Onset Date Resolution Hypertension acute April 08 2:14pm Acute bronchitis due to other specified organisms noneactive April 08, 2025 2:14pm Ascending aortic aneurysm acute May 04, 2025 9:38am Atrial fibrillation acute May 04, 2025 9:38am Cardiomyopathy acute May 04, 2025 9:38am Chronic kidney disease acute 2024 9:38am Hypertension acute May 04 9:38am [facility] Work Phone: 1(732) 309-145603-14-2025 Evaluation note* Diagnosis Onset Date Resolution Status Admit Date Right hip pain acute January 9:07am Cough productive of clear sputum noneactive January 14, 2025 9:07am Impacted cerumen of right ear noneac tive January 14, 2025 9:07am [facility] Work Phone: 1(771) 528-604903-07-2025 [facility] Subjective Kishor Graham is a 64 y.o. year old male patient [facility]. Patient Active Problem List Diagnosis [...] schedule on 12/07/2024 at 1 PM. Location: [facility] ST[facility] UP [facility] RO[facility] / [facility] (Cath) Providers: Galindo Villa [...] products. [facility] [place] [facility] [facility] Subjective Kishor Graham is a [...] ear noneac tive January 14, 2025 9:07am [facility] Work Phone: [phone]) 507-514402-06-2024 Evaluation note* Encounter Date Diagnosis Assessment Notes [...] They are irritated, inflamed w/ some bleeding. 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 Feb, CLIVE (obstructive sleep apnea) (ICD-10 - G47.33) This patient is aware of the benefits associated with CLIVE: With continued use, the patient reduces the risk for ME, CVA, HTN, cardiac dysrhythmias and sudden cardiac deaths.The patient is also aware of the association between CLIVE and morning headaches, daytime somnolence, fatigue and obesity, which also has been improved with continued use.The patient is compliant with treatment, wearing the equipment every night for greater than 4 hours.The patient is instructed to continue use of the CPAP for CLIVE treatment. [employer] Other 04-17-2023 Evaluation note* Encounter Date Diagnosis Assessment Notes Treatment Notes Treatment Clinical Notes Feb, Acute non-recurrent maxillary sinusitis (ICD-10 - J01.00) [employer] Other Evaluation noteNo InformationNort [employer] Other Evaluation note* Diagnosis Onset Date Resolution Status Atrial fibrillation acute Hypertension acute Acute bronchitis due to other specified organisms noneactive [facility] [employer] Work Phone: Evaluation note* Diagnosis Onset Date Resolution Status Atrial fibrillation acute Hypertension acute Acute bronchitis due to other specified organisms noneactive Cardiomyopathy acute Eustachian tube dysfunction acute Acute sinusitis noneactive [employer] Work Phone: History general Narrative - Reported* Type Description Date Medical History Colon polyps Medical History Essential (primary) hypertension Medical History Paroxysmal atrial fibrillation Medical History Erectile dysfunction due to awndy rial insufficiency Medical History Obstructive sleep apnea Medical History Benign hypertension with chronic kidney disease, stage III Medical History Plantar fasciitis, left Surgical History UMBILICAL HERNIORRAHPHY Surgical History ARTHRSCOPY LEFT KNEE Surgical History CARDIOVERSION 2016 Surgical History COLONOSCOPY 2016 Surgical History ABLATION, ARRHTHMOGE CAROLYN FOCUS, FOR ATRIAL FIBRILLATION, INCARDIAC CATHETERIZATION LABORATORY 2020 Hospitalization History SEE SURGICAL HX [employer] Other History general Narrative - Reported* Type [...] LABORATORY 2020 Hospitalization History SEE SURGICAL HX [employer] Other Reason for referral (narrative)No reason for referral information availableMans[facility] Work Phone: Summary Purpose Family History No Family History Records Found Relationship Condition Age at Onset Recorded Date/T alia father Heart disease Unknown Diabetes mellitus Unknown Advance Directives No Advanced Directives Records Found Advance Directive Response Recorded Date/ Time Advance Directives Yes May 27 11:10am Chief Complaint and Reason for Visit Chief Complaint Amb Documentation [phone] fever, chills, congestion Reason for Visit Atrial fibrillation Hypertension Acute bronchitis due to other specified organisms Chief Complaint Amb Documentation [phone] fever, chills, congestion [phone] sinus infection Reason for Visit Atrial fibrillation [...] section and content) DATE CREATED AUTHOR 10/17/2021 [facility] DATE CREATED AUTHOR AUTHOR'S ORGANIZ ATION 04/10/2022 [facility] DATE CREATED AUTHOR AUTHOR'S ORGANIZ ATION 03/15/[address] [facility] DATE CREATED AUTHOR AUTHOR'S ORGANIZ ATION 06/14/2025 [facility] REASON FOR VISIT (unrecogniz ed section and content) Sinuses -[phone] [facility] results1 WEEK FOLLOW Care Teams (unrecognized sec [...] Status: Active Member Role Status Dates Fam Ball , DO Primary Care Provide r, Attending [...] 2024 Team Status: Inactive Member Role Status Mendel Vazquez , DO Primary Care Provide r, Attending Provider Active Start: April 08, 2025 End: April 08, 2025 Team Status: Inactive Member Role Status Dates Fam Vazquez , DO Primary Care Provider Active Start: April 08, 2025 End: April 08, 2025 Fam Vazquez , DO Attending Provider Active Sta rt: April 08, 2025 End: April 08, 2025 Team Status: Inactive Member Role Status Mendel Vazquez , DO Primary Care Provider Active Start: May 04, 2025 End: May 04, 2025 Fam Vazquez , DO Attending Provider [...] BE BASED ON THE PRIMARY CLINICAL RECORDS. [facility] [employer] [facility] provides no warranty or guarantee of the accuracy or completeness of information in this document.
[2025-06-17 10:41] LABS: Anion Gap 11.5; Blood Urea Nitrogen 16.0 mg/dL (7.0-18.0); Calcium 8.7 mg/dL (8.5-10.1); Carbon Dioxide 28.2 mmol/L (21.0-32.0); Chloride 107 mmol/L (98-107); Estimated GFR (African America >60 (>=60 mL/min/1.73m^2); Estimated GFR (Non-African Ame 56 (>=60 mL/min/1.73m^2); Glucose 96 mg/dL (74-106); Potassium 3.7 mmol/L (3.5-5.1); Sodium 143 mmol/L (136-145)
== END 2025-06-17 09:50 | disposition home or self-care (01) ==
LOC: LAB 09:54
PROVIDERS: PCP Internal Medicine; Visit Provider Internal Medicine Interventional Cardiology
DX: I50.32 Chronic diastolic (congestive) heart failure (principal)
CPT/HCPCS: 36415; 80048